=== PATIENT | female | born 1950 | race Caucasian/White ===

== ENCOUNTER 2020-06-27 10:13 | Outpatient (NON) | payer MEDICARE, BC, SELFPAY ==
[2020-06-28 14:11] LABS: SARS-CoV-2 RNA PCR Negative
== END 2020-06-27 10:14 ==
PROVIDERS: PCP Family Medicine; Visit Provider Physician Assistant
DX: Z20.828 Contact with and (suspected) exposure to other viral communicable diseases (principal); R50.9 Fever, unspecified
CPT/HCPCS: 87635; C9803; U0003

== ENCOUNTER → 2020-08-20 10:01 | Outpatient (CLI) | payer MEDICARE, BC, SELFPAY ==
--- NOTE | ~2020-08-20 | MM_ITS ---
EXAMINATION: MM screening irma BI w krishan HISTORY: Screening mammogram TECHNIQUE: Craniocaudal and mediolateral oblique 3-D tomosynthesis images were obtained and synthetic 2-D images were generated. CAD analysis was submitted and interpreted. COMPARISON: No prior mammogram is available for comparison at this institution. BREAST PARENCHYMAL COMPOSITION: The breasts are heterogeneously dense, which may obscure small masses . FINDINGS: There is a biopsy marker on the left; history of prior benign left breast biopsy on 06/19/20 18. There is no evidence of suspicious mass, calcification, or architectural distortion to suggest ma lignancy in either breast. There has been no suspicious interval change. IMPRESSION: 1. No mammographic evidence of malignancy. 2. Recommend routine screening mammography in one year. BI-RADS Category 1: Negative Reviewed, dictated and finalized at location A.
--- NOTE | ~2020-08-20 | DEXA_ITS ---
Bone Density Report Name: oJry Angeles Age: 70 Sex: Female Ethnicity: White Date of : 1950 Indication: osteopenia; history of glucocorticoids; hysterectomy; rheumatoid arthritis; postmenopausal Referring Provider: ABHINAV DOMINGUEZ Study: Bone densitometry was performed. Exam Date: August 20, 2020 Accession number: [id number] There is hypertrophic degenerative change of the lumbar spine, which results in higher than expected spine bone mineral density measurements. These spine BMD and T score and Z score measurements are not reflective of the patient's true general bone mineral density. Bone Density: Region BMD T-score Z-score Classification AP Spine (L1-L4) 1.473 3.9 6.0 Normal Femoral Neck (Left) 0.620 -2.1 -0.3 Osteopenia Total Hip (Left) 0.812 -1.1 0.5 Osteopenia Femoral Neck (Right) 0.626 -2.0 -0.2 Osteopenia Total Hip (Right) 0.811 -1.1 0.4 Osteopenia Total Hip Mean 0.812 -1.1 0.5 Osteopenia World Health Organization criteria for BMD impression classify patients as: Normal (T-score at or above -1.0), Osteopenia (T-score between -1.0 and -2.5), or Osteoporosis (T-score at or below -2.5). 10-year Fracture Risk(1): Major Osteoporotic Fracture 21% Hip Fracture 5.6% Reported Risk Factors: [place] (), Neck BMD=0.620, BMI=19.5, glucocorticoids, rheumatoid arthritis (1) FRAX(R) Version 3.08. Fracture probability calculated for an untreated patient. Fracture probability may be lower if the patient has received treatment. Previous Exams: Region Exam Age BMD T-score BMD Change BMD Change Date g/cm2 vs Baseline vs Previous AP Spine(L1-L4) 08/20/2020 70 1.473 3.9 0.134 0.087* 07/06/2017 67 1.387 3.1 0.048 0.089* 10/23/2013 63 1.297 2.3 -0.042 -0.032* 08/31/2011 61 1.329 2.6 -0.009 0.017 07/15/2009 59 1.312 2.4 -0.027 0.028* 02/14/2007 56 1.284 2.2 -0.054 -0.054 01/18/2004 53 1.339 2.7 Total Hip(Left) 08/20/2020 70 0.812 -1.1 -0.121 -0.012 07/06/2017 67 0.824 -1.0 -0.109 -0.008 10/23/2013 63 0.833 -0.9 -0.100 -0.043* 08/31/2011 61 0.876 -0.5 -0.057 -0.006 07/15/2009 59 0.882 -0.5 -0.051 -0.009 02/14/2007 56 0.891 -0.4 -0.042 -0.042 01/18/2004 53 0.933 -0.1 Total Hip(Right) 08/20/2020 70 0.811 -1.1 -0.119 0.003 07/06/2017 67 0.808 -1.1 -0.122 -0.008 10/23/2013 63 0.817 -1.0 -0.113 -0.037*
== END ==
PROVIDERS: Visit Provider Obstetrics & Gynecology
DX: Z12.31 Encounter for screening mammogram for malignant neoplasm of breast (principal); Z78.0 Asymptomatic menopausal state; M85.89 Other specified disorders of bone density and structure, multiple sites
CPT/HCPCS: 77063; 77067; 77080

== ENCOUNTER 2020-08-27 13:30 | Outpatient (RCR) | payer MEDICARE, BC, SELFPAY ==
--- NOTE | 2020-07-29 11:44 | PTOPEVAL ---
Thank you for referring Jory A Bone to [facility] [place].? The patient is scheduled to be seen for therapy? 2 x/week for 4 weeks. Please review, sign, date and return this plan of care SADIA. I agree with and certify that the following plan of care is medically necessary. Referring Physician Date Admitting Provider: Attending Provider: Nikolai Jade, Referring Provider: *PT Outpatient Evaluation Start: 07/29/20 10:22 Freq: Status: Active Protocol: Document 07/29/20 10:26 TLM (Rec: 07/29/20 11:09 [facility] [id number]) Therapy Assessment Status Assessment Status Assessment Status Evaluation Outpatient Past Medical History Past Medical History Source of Past Medical History Patient Neurological History Hx Neurological Disorders No Significant History Cardiovascular History Hx Cardiac Disorders No Significant History Respiratory History Hx Respiratory Disorders No Significant History Gastrointestinal History Hx Gastrointestinal Disorders No Significant History Genitourinary History Hx Genitourinary Disorders No Significant History Musculoskeletal History Hx Back Pain Yes Hx Rheumatoid Arthritis Yes Hx Scoliosis Yes Hematological History Hx Hematological Disorders No Significant History Endocrine History Hx Endocrine Disorders No Significant History HEENT History Hx HEENT Disorders No Significant History Integumentary History Hx Skin Disorders No Significant History Reproductive History Hx Reproductive Disorders No Significant History Psychosocial History Hx Psychiatric Disorders No Significant History Evaluation Information Problem Diagnosis Trochanteric pain syndrome (L) Subjective Information Insideous onset of L hip pain Query Text:As Reported By Patient/ 5 years ago. Describes pain as Family deep ache. Has been to MD multiple times over the years and has received corisone injections 3 -5x/yr for 5 years. States pain is initially better after cortisone injection however slowly gets worse until next injection. Relief from injection has been more intermittent lately. Reports next injection is on 07/31 by elizabeth BOSCH who will use MRI guidance. Reports pain at her L knee that is so sharp that feels her patella is popping out of
--- NOTE | 2020-08-27 15:55 | PTOPEVAL ---
Thank you for referring Jory A Bone to [facility].? Pt has received 9 therapy visits to address hip pain. She demonstrates limited progress with goals and strength. She reports improved pain with function with therapy. She has requested to continue with her HEP and fitness program instead of attending therapy. Please review, sign, date and return this plan of care SADIA. I agree with and certify that the following plan of care is medically necessary. Referring Physician Date Attending Provider: Nikolai Jade, Referring Provider: *PT Outpatient Evaluation Start: 07/29/20 10:22 Freq: Status: Active Protocol: Document 08/27/20 13:31 CAP (Rec: 08/27/20 14:29 [facility] [email or web address]) Therapy Assessment Status Assessment Status Assessment Status Re-evaluation Evaluation Information Problem Diagnosis Trochanteric pain syndrome (L) Onset 5 yrs Cause unknown Additional Evaluation Detail Has been to MD multiple times over the years and has received cortisone injections 3 -5x/yr for 5 years. Reports next injection is on 07/31 by new MD who will use MRI guidance. Subjective Information Reports pain was improved, but Query Text:As Reported By Patient/ she woke with pain this Family morning. Describes pain as pinching with pain of 0-2/10. Reports pain at her L knee/ patella is popping out of place. when she puts all her weight on the left LE with mobility task. She has fallen due to knee pain. She is unable to indicate a task or activity that increases or decreases her pain. Has used ice/heat in the past for relief. Denies increased pain with sitting or standing. Pain Assessment Timing of Pain Assessment Timing of Pain Assessment Re-assessment Pain Scale Pain Scale Used Numeric (1 - 10) Self Report Pain Assessment Left Hip(s) Reported Pain Level 1 Pain Description Pinching Pain Frequency Chronic,Intermittent Lowest Pain Intensity 0 Greatest Pain Intensity 2 Pain Aggravating Factors None Pain Score Pain Score 1: Self Report Interventions Used Interventions Used By Clinicians Exercise Lower Extremity Mus
== END 2020-08-28 14:29 | disposition home or self-care (01) ==
LOC: ANHPT 13:30
PROVIDERS: PCP Family Medicine; Visit Provider Internal Medicine Rheumatology
DX: M25.559 Pain in unspecified hip (principal)
CPT/HCPCS: 97014; 97035; 97110; 97112; 97140; 97161; 97530; G0283

== ENCOUNTER → 2021-01-03 08:55 | Outpatient (CLI) | payer MEDICARE, BC, SELFPAY ==
--- NOTE | ~2021-01-03 | US_ITS ---
EXAMINATION: US right upper quadrant DATE: 01/03/2021 09:22 INDICATION: Abnormal liver function tests. TECHNIQUE: Multiple grayscale and Doppler ultrasound images of the abdomen were obtained. COMPARISON: None FINDINGS: Abdominal aorta demonstrates atherosclerosis. No aneurysm. Inferior vena cava is normal. Th e visualized portions of the head, body, and tail of the pancreas are normal. The liver is normal wit hout focal lesion. No liver surface nodularity. There is normal flow in main portal vein. The gallbla dder is normal in size. No gallstones or gallbladder wall thickening. There is no sonographic Kay sign. The common duct is normal and measures 2 mm. Right kidney is normal. IMPRESSION: 1. No etiology for abnormal liver function tests. Reviewed, dictated and finalized at location A. SETTER
== END ==
PROVIDERS: PCP Family Medicine; Visit Provider Physician Assistant
DX: R74.8 Abnormal levels of other serum enzymes (principal)
CPT/HCPCS: 76705

== ENCOUNTER 2022-07-10 16:07 | Emergency (ER) | payer MEDICARE, BC, SELFPAY ==
[2022-07-10 16:16] VITALS: BP 122/60; PULSE 79; RESP 18; TEMP 36.5; O2SAT 99
--- NOTE | 2022-07-10 16:33 | ED.GENADULT ---
HPI - General Adult General Chief complaint: Extremity Injury, Lower Stated complaint: Lt Leg Pain due to Fall History of Present Illness HPI narrative: 72 y/o female. PMHx non-contributory. Presents to local [facility] care clinic today w/acute complaints of a wound located to her lower left leg. She tells me that she had suffered a mechanical fall 1 week ago, resulting in a skin tear to her left lower leg. Client describes washing her home windows, and fell from a small stool. No prodromal deficits. She did seek out medical attention at the local Hospital following her fall, and states that all her scans and xrays were non-acute. However, her lower leg wound is now more erythematous, tender, and with yellow discharge. She has had minimal response to home topical Neosporin therapies. She denies any additional falls or injury. No gross leg swelling, pain, chest pain, or difficulty breathing. Non-diabetic. Her Tetanus was updated last week in the ER following her fall is what she reports. No additional acute c/o upon PE. Related Data Home Medications Medication Instructions Recorded Confirmed calcium carbonate 500 mg-vitamin 1 tablet PO DAILY 09/18/19 07/10/22 D3 3.125 mcg (125 unit) tablet folic acid 0.8 mg capsule 0.8 mg PO DAILY 09/18/19 07/10/22 hydroxychloroquine 200 mg tablet 200 mg PO BID 09/18/19 07/10/22 (Plaquenil) estradiol 10 mcg vaginal tablet 10 mcg vaginal 2XW 09/19/19 07/10/22 (Vagifem) prednisone 5 mg tablet 5 mg PO DAILY 02/13/20 07/10/22 denosumab 60 mg/mL subcutaneous 60 mg subcut [id number] 11/27/21 07/10/22 syringe (Prolia) metoprolol tartrate 25 mg tablet 25 mg PO BID 11/27/21 07/10/22 multivitamin 1 tablet PO DAILY 11/27/21 07/10/22 abatacept 125 mg/mL subcutaneous 125 mg subcut WEEKLY 12/10/21 07/10/22 syringe (Orencia) abatacept 87.5 mg/0.7 mL mg subcut DIRECTED 07/10/22 subcutaneous syringe (Orencia) Allergies Allergy/AdvReac Type Severity Reaction Status Date / Time Quinolones Allergy Mild SOB, CHEST Verified 07/10/22 16:27 PRESSURE trimethoprim Allergy Mild SOB, CHEST Verified 07/10/22 16:27 PRESSURE erythromycin base Allergy Unknown Unknown Verified 07/10/22 16:27 latex Allergy Unknown Rash Verified 07/10/22 16:27 nickel Allergy Unknown Rash Verified 07/10/22 16:27 Penicillins Allergy Unknown Rash Verified 07/10/22 16:27 Sulfa (Sulfonamide Allergy Unknown Unknown Verified 07/10/22 16:27 Antibiotics) Review of Systems Review of Systems: CONSTITUTIONAL: Denies fever, chills, sweats. EYES: Denies visual changes, redness, discharge. ENT: Denies rhinorrhea, congestion, sore throat, otalgia. CARDIOVASCULAR: Denies chest pain, palpitations, edema. RESPIRATORY: Denies dyspnea, wheezing, cough GASTROINTESTINAL: Denies abdominal pain, nausea, vomiting, diarrhea. GENITOURINARY: Denies dysuria, hematuria, abnormal discharge SKIN: Left lower leg wound/infection. MUSCULOSKELETAL: Denies acute back pain, joint pain, or myalgia. NEUROLOGIC: Denies numbness, or focal weakness. PSYCHIATRIC: Denies anxiety or depression. [facility] Past Medical History Medical History Memory loss Surgical History Surgical History Status post hysterectomy with oophorectomy Family History Family History Father Diabetes mellitus Family history of Alzheimer's disease Sibling Family history of migraine headaches Family history of malignant neoplasm of brain Mother Family history of Alzheimer's disease Social History Social History Smoking packs per day: 1 Smoking cigarettes per day: 20.0 Years smoked: 30 Smoking pack-years: 30.00 Smoking status: Current some day smoker Tobacco type: cigarettes Second hand tobacco smoke exposure: Ye
== END 2022-07-10 16:37 | disposition home or self-care (01) ==
PROVIDERS: Emergency Provider Nurse Practitioner Adult Health; PCP Internal Medicine
DX: L03.116 Cellulitis of left lower limb (principal); Z87.891 Personal history of nicotine dependence
CPT/HCPCS: 99213; G0463

== ENCOUNTER → 2022-11-06 14:39 | Outpatient (CLI) | payer MEDICARE, BC, SELFPAY ==
--- NOTE | ~2022-11-06 | MM_ITS ---
EXAMINATION: MM screening irma BI w krishan HISTORY: Screening mammogram TECHNIQUE: Craniocaudal and mediolateral oblique 3-D tomosynthesis images were obtained and synthetic 2-D images were generated. CAD analysis was submitted and interpreted. COMPARISON: 03/25/2020 bilateral screening mammogram BREAST PARENCHYMAL COMPOSITION: The breasts are heterogeneously dense, which may obscure small masses . FINDINGS: Biopsy marker on the left. History of prior benign left breast biopsy in 2018. There is no evidence of suspicious mass, calcification, or architectural distortion to suggest malignancy in eith er breast. There has been no suspicious interval change. IMPRESSION: 1. No mammographic evidence of malignancy. 2. Recommend routine screening mammography in one year. BI-RADS Category 1: Negative Reviewed, dictated and finalized at location B. [facility] [employer]
--- NOTE | ~2022-11-06 | DEXA_ITS ---
Bone Density Report Name: ALEJANDRA GALVIN Age: 72 Sex: Female Ethnicity: White Date of : 1950 Indication: osteopenia; monitoring treatment; history of glucocorticoids; hysterectomy; rheumatoid arthritis; postmenopausal Referring Provider: AIXA JACQUES Study: Bone densitometry was performed. Exam Date: November 06, 2022 Accession number: [id number] There is hypertrophic degenerative change of the lumbar spine, which results in higher than expected spine bone mineral density measurements. These spine BMD and T score and Z score measurements are not reflective of the patient's true general bone mineral density. Bone Density: Region BMD T-score Z-score Classification AP Spine (L1-L4) 1.563 4.7 6.9 Normal Femoral Neck (Left) 0.627 -2.0 -0.1 Osteopenia Total Hip (Left) 0.826 -1.0 0.7 Normal Femoral Neck (Right) 0.660 -1.7 0.2 Osteopenia Total Hip (Right) 0.819 -1.0 0.6 Normal Total Hip Mean 0.823 -1.0 0.7 Normal World Health Organization criteria for BMD impression classify patients as: Normal (T-score at or above -1.0), Osteopenia (T-score between -1.0 and -2.5), or Osteoporosis (T-score at or below -2.5). 10-year Fracture Risk: FRAX not reported because: Treated for osteoporosis Previous Exams: Region Exam Age BMD T-score BMD Change BMD Change Date g/cm2 vs Baseline vs Previous AP Spine(L1-L4) 11/06/2022 72 1.563 4.7 0.225 0.090* 08/20/2020 70 1.473 3.9 0.134 0.087* 07/06/2017 67 1.387 3.1 0.048 0.089* 10/23/2013 63 1.297 2.3 -0.042 -0.032* 08/31/2011 61 1.329 2.6 -0.009 0.017 07/15/2009 59 1.312 2.4 -0.027 0.028* 02/14/2007 56 1.284 2.2 -0.054 -0.054 01/18/2004 53 1.339 2.7 Total Hip(Left) 11/06/2022 72 0.826 -1.0 -0.108 0.013 08/20/2020 70 0.812 -1.1 -0.121 -0.012 07/06/2017 67 0.824 -1.0 -0.109 -0.008 10/23/2013 63 0.833 -0.9 -0.100 -0.043* 08/31/2011 61 0.876 -0.5 -0.057 -0.006 07/15/2009 59 0.882 -0.5 -0.051 -0.009 02/14/2007 56 0.891 -0.4 -0.042 -0.042 01/18/2004 53 0.933 -0.1 Total Hip(Right) 11/06/2022 72 0.819 -1.0 -0.111 0.007 08/20/2020 70 0.811 -1.1 -0.119 0.003 07/06/2017 67 0.808 -1.1 -0.122 -0.008 10/23/2013 63 0.817 -1.0 -0.113 -0.037* 08/31/2011 61 0.854 -0.7 -0.076 -0.031* 07/15/2009 59 0.885
== END ==
PROVIDERS: PCP Internal Medicine
DX: Z12.31 Encounter for screening mammogram for malignant neoplasm of breast (principal); Z78.0 Asymptomatic menopausal state; M85.89 Other specified disorders of bone density and structure, multiple sites
CPT/HCPCS: 77063; 77067; 77080

== ENCOUNTER 2024-05-02 14:40 | Outpatient (CLI) | payer MEDICARE, BC, SELFPAY ==
--- NOTE | ~2024-05-02 | MM_ITS ---
EXAMINATION: MM screening irma BI w krishan HISTORY: Screening mammogram TECHNIQUE: Craniocaudal and mediolateral oblique 3-D tomosynthesis images were obtained and synthetic 2-D images were generated. CAD analysis was submitted and interpreted. COMPARISON: 11/06/2022, 08/20/2020, 06/09/2018 BREAST PARENCHYMAL COMPOSITION:Dense: The breasts are heterogeneously dense, which may obscure small masses. FINDINGS: No suspicious mass, calcification, or architectural distortion are identified in either sandy ast to suggest malignancy. There has been no suspicious interval change. IMPRESSION: No mammographic evidence of malignancy. Recommend routine screening mammography in one year. BI-RADS Category 1: Negative Reviewed, dictated and finalized at location .
== END 2024-05-02 14:41 ==
PROVIDERS: PCP Internal Medicine; Visit Provider Internal Medicine
DX: Z12.31 Encounter for screening mammogram for malignant neoplasm of breast (principal)
CPT/HCPCS: 77063; 77067

== ENCOUNTER 2025-03-10 09:31 | Emergency (ER) | payer MEDICARE, BC, SELFPAY ==
[2025-03-10 09:46] VITALS: BP 95/54; PULSE 74; RESP 16; TEMP 36.1; O2SAT 99
--- NOTE | 2025-03-10 10:07 | ED.FEMALEGU ---
HPI - Female Genitourinary General Chief complaint: Urogenital-Female Stated complaint: UTI Time Seen by Provider: 03/10/25 10:09 Source: patient, RN notes reviewed and old records reviewed Mode of arrival: ambulatory Limitations: no limitations History of Present Illness HPI Narrative: 74-year-old female presents to the [facility] with the feeling of unable to empty her bladder and bladder and urinary irritation. Denies any pain. Denies fevers. Denies abdominal pain, nausea or vomiting. Patient had seen primary care provider on the 01 March, was prescribed Macrobid due to multiple allergies. States the symptoms have not changed or improved. Related Data Home Medications ?Medication ?Instructions ?Recorded ?Confirmed ?Last Taken ?Type calcium 500 mg (as 1 tablet PO DAILY 09/18/19 07/10/22 Unknown History carbonate)-vitamin D3 3.125 mcg (125 unit) tablet folic acid 0.8 mg capsule 0.8 mg PO DAILY 09/18/19 07/10/22 Unknown History hydroxychloroquine 200 mg tablet 200 mg PO BID 09/18/19 07/10/22 Unknown History (Plaquenil) denosumab 60 mg/mL subcutaneous 60 mg subcut [id number] 11/27/21 07/10/22 Unknown History syringe (Prolia) metoprolol tartrate 25 mg tablet 25 mg PO BID 11/27/21 07/10/22 Unknown History multivitamin 1 tablet PO DAILY 11/27/21 07/10/22 Unknown History abatacept 125 mg/mL subcutaneous 125 mg subcut WEEKLY 12/10/21 07/10/22 Unknown History syringe (Orencia) abatacept 87.5 mg/0.7 mL mg subcut DIRECTED 07/10/22 Unknown History subcutaneous syringe (Orencia) Allergies Allergy/AdvReac Type Severity Reaction Status Date / Time Quinolones Allergy Mild SOB, CHEST Verified 10/29/22 11:20 PRESSURE trimethoprim Allergy Mild SOB, CHEST Verified 10/29/22 11:20 PRESSURE erythromycin base Allergy Unknown Unknown Verified 10/29/22 11:20 latex Allergy Unknown Rash Verified 10/29/22 11:20 nickel Allergy Unknown Rash Verified 10/29/22 11:20 Penicillins Allergy Unknown Rash Verified 10/29/22 11:20 Sulfa (Sulfonamide Allergy Unknown Unknown Verified 10/29/22 11:20 Antibiotics) Review of Systems Review of Systems: All systems reviewed & are unremarkable except as noted in HPI and below Constitutional: Constitutional: Reports no additional constitutional complaints ENT: Reports system reviewed and no additional complaints, except as documented Cardiovascular: Cardiovascular: Reports no additional cardiovascular complaints, Denies chest pain and Denies dyspnea Respiratory: Respiratory: Reports no additional respiratory complaints, Denies chest congestion, Denies cough and Denies dyspnea Genitourinary: Genitourinary: Reports as per HPI Musculoskeletal: Musculoskeletal: Reports no additional musculoskeletal complaints Integumentary/Breasts: Skin/Breast: Reports system reviewed and no additional complaints, except as docu PMFSH Past Medical History Medical History Memory loss Surgical History Surgical History Status post hysterectomy with oophorectomy Family History Family History Father Diabetes mellitus Family history of Alzheimer's disease Sibling Family history of migraine headaches Family history of malignant neoplasm of brain Mother Family history of Alzheimer's disease Social History Social History Smoking packs per day: 1 Smoking cigarettes per day: 20.0 Years smoked: 30 Smoking pack-years: 30.00 Smoking status: Current some day smoker Tobacco type: cigarettes Second hand tobacco smoke exposure: Yes Smoking end date: 11/01/07 Alcohol intake: current Drinks per week: 2 Substance use: never Substance use type: does not use Lack of Transportation: No Lack of Food: Never True Current Housing: I Have Housing Concerned About Future Housing: No Difficulty Paying Gas/Electric Bills: No Difficulty Paying for Meds: No Currently Unemployed: No Education: Associate Degree Difficulty w/ Childcare or Family Care: No Living arrangements: with family Occupation/Education: retired Gender identity (if verbalized by the patient): Female Sexual Orientation (if Verbalized by the Patient): Straight or Heterosexual Comments At the time of my signature, I reviewed and agree with the nursing past medical, surgical, social, and family history. There is no relevant family history pertinent to the patient complaint. Exam Const: General: cooperative, healthy appearing, comfortable, no acute distress, well developed, alert and well nourished Nutritional Appearance: well nourished Orientation/consciousness: patient oriented x3 Limitations: no limitations HENMT: Head: normal to inspection Eyes: General: appearance normal, both eyes and all related structures Alignment and Position: alignment normal Neck: Neck: normal visual inspection, full ROM, no lymphadenopathy and no meningeal signs Chest: Chest palpation & inspection: normal inspection of the chest Resp: Effort & Inspection: normal respiratory effort and able to speak in complete sentences Cardio: Rate: regular rate GI: GI Palp: No abdominal tenderness : General: Yes no CVA tenderness Skin: General skin exam: normal color and no rashes or lesions noted Neuro: General: patient oriented x3, gait normal, moves all extremities and no meningeal signs Cognition (Neuro): normal cognition Speech: normal speech Gait exam (Neuro): Normal gait present Extrem: General: normal to inspection, full ROM, capillary refill normal and normal gait Psych: Appearance: grossly normal and well kempt Mental Status: mental status grossly normal Speech and movement: Normal speech and movement present and Clear speech present Affect: normal affect Attitude: cooperative Course Course Level of Care: Express Care Visit Vital Signs Vital signs: Vital Signs Temperature 97.0 F L 03/10/25 09:46 Pulse Rate 74 03/10/25 09:46 Respiratory Rate 16 03/10/25 09:46 Blood Pressure 95/54 L 03/10/25 09:46 Pulse Oximetry 99 03/10/25 09:46 Oxygen Delivery Room Air 03/10/25 09:46 Temperature 97.0 F L 03/10/25 09:46 Pulse Rate 74 03/10/25 09:46 Respiratory Rate 16 03/10/25 09:46 Blood Pressure 95/54 L 03/10/25 09:46 Pulse Oximetry 99 03/10/25 09:46 Oxygen Delivery Room Air 03/10/25 09:46 Reviewed MDM - Female Genitourinary MDM Narrative Medical decision making narrative: Patient sitting comfortably in exam room. Patient is nontoxic, vitals stable. Patient in no acute distress. Patient presents with concerns for UTI. Urine dip is clean, will culture. Patient appropriate for outpatient treatment with close follow-up Discharge instructions reviewed with patient, as well as provided in writing per nursing staff. The instructions also include specific and strict return/GO TO THE ER as well as f/u information. All questions have been answered, and the patient deny any further questions with discharge and discharge plan. Some parts of this dictation were generated by voice recognition software and may contain typographical and/or grammatical inaccuracies. Differential Diagnosis Differential diagnosis: Likely urinary tract infection, cystitis and other (Dysuria) Lab Data Labs: Lab Results 03/10/25 Range/Units 09:50 POC Urine Color Yellow POC Urine Clarity Clear POC Urine pH 6.0 POC Ur Specif [place] 1.010 POC Urine Protein Negative (Negative) POC Ur Glucose (UA) Negative (Negative) POC Urine Ketones Negative (Negative) POC Urine Blood Negative (Negative) POC Urine Nitrite Negative (Negative) POC Urine Bilirubin Negative (Negative) POC Urine Urobilinogen 0.2 POC U Leukocyte Esteras Negative (Negative) Reviewed Critical Care Time Critical Care Time Critical Care Time: No Discharge Plan Discharge Clinical Impression: Dysuria Patient Disposition: Home Condition: Stable Instructions: Antibiotic Form, Dysuria (ED) Additional Instructions: Today your urine did not show signs of a UTI. We will send for culture. Please call your doctor on Wednesday for a follow-up. For new or worsening symptoms please go directly to the nearest emergency room Patient Language: Hong [place]er Prescriptions: No Action Orencia 87.5 mg/0.7 mL Syringe SUBCUT DIRECTED hydroxychloroquine [Plaquenil] 200 mg tablet 200 mg PO BID calcium carbonate-vitamin D3 500 mg(1,250mg) -125 unit tablet 1 tablet PO DAILY folic acid 0.8 mg capsule 0.8 mg PO DAILY Orencia 125 mg/mL syringe 125 mg subcut WEEKLY aspirin 81 mg tablet,chewable 81 mg PO DAILY Qty: 30 4RF riboflavin (vitamin B2) 400 mg tablet 400 mg PO DAILY Qty: 30 4RF multivitamin Tablet 1 tablet PO DAILY Prolia 60 mg/mL syringe 60 mg subcut [id number] metoprolol tartrate 25 mg tablet 25 mg PO BID gabapentin 300 mg capsule 300 mg PO TID Qty: 90 11RF Follow-up/Referrals: Kell,Kash Vale MD [Primary Care Provider] - 3 Days ([facility] follow-up, continued urinary symptoms) Time of Disposition: 10:17
[2025-03-10 10:23] LABS: EDUAAPPEAR Clear; EDUABILI Negative (Negative); EDUABLOOD Negative (Negative); EDUACOLOR1 Yellow; EDUAGLUCOSE Negative (Negative); EDUAKETONE Negative (Negative); EDUALEUKO Negative (Negative); EDUANITRATE Negative (Negative); EDUAPROTEIN Negative (Negative); EDUAUROBILI 0.2
== END 2025-03-10 10:25 | disposition home or self-care (01) ==
PROVIDERS: Emergency Provider Nurse Practitioner; PCP Internal Medicine
DX: R30.0 Dysuria (principal); F17.210 Nicotine dependence, cigarettes, uncomplicated
CPT/HCPCS: 81003; 87086; 99213; G0463

== ENCOUNTER 2025-03-16 22:57 | Inpatient (IN) | payer MEDICARE, BC, SELFPAY ==
--- NOTE | ~2025-03-16 | CT_ITS ---
CT brain wo con Ordering provider: Chester Uribe History: 74 years Female with . stroke symptoms since 2199 . Comparison: None. Technique: CT of the head without contrast. Radiation reduction technique utilized.The dose-length product was 681 mGy-cm. FINDINGS: BRAIN PARENCHYMA AND CSF SPACES: No midline shift, mass effect or hemorrhage. The brain parenchyma a nd CSF spaces are otherwise normal. VISUALIZED PARANASAL SINUSES: Well aerated. MASTOIDS: Well aerated. BONES: The bones appear intact. SOFT TISSUES: Visualized nasopharynx is normal. Superficial soft tissues are normal. IMPRESSION: No acute intracranial findings. Reviewed, dictated and finalized at location A.
--- NOTE | ~2025-03-16 | MR_ITS ---
EXAMINATION: MR brain/brain stem wo/w con DATE: 03/17/2025 12:31 INDICATION: Transient ischemic episode. Left upper and lower limb paresthesias. TECHNIQUE: Magnetic resonance imaging (MRI) of the brain and brainstem was performed without and with 10 mL ProHance intravenous contrast. Sequences included sagittal and axial T1-weighted SE, axial dif fusion-weighted FS SE, axial 3D SWAN, axial T2-weighted FLAIR, and axial T2-weighted FSE. Postcontras t axial and coronal T1-weighted SE was obtained. Apparent diffusion coefficient (ADC) maps were creat ed. COMPARISON: None. FINDINGS: There are no areas of restricted diffusion to suggest acute infarction. No intracranial hemorrhage or abnormal intracranial mass lesion. There are a few scattered areas of nonspecific increased T2-weigh ann signal intensity in the cerebral white matter, predominantly involving the deep and periventricul ar white matter which is within normal limits for age and likely sequela of chronic small vessel isch emic disease.. There are no intraparenchymal signal abnormalities seen on the other pulse sequences. The ventricles are symmetric and normal in size. There are no abnormal extra-axial fluid collections. Flow voids are seen in the cerebral arteries on the T2-weighted sequences consistent with their expe cted patency. Mild mucosal thickening the bilateral ethmoid sinuses. Visualized orbits and soft tissu es are unremarkable. There are no areas of abnormal enhancement on the post contrast images. IMPRESSION: 1. Normal aging brain. No acute intracranial process or abnormally enhancing brain lesions. Reviewed, dictated and finalized at location A. IMPRESSION: 1. Normal aging brain. No acute intracranial process or abnormally enhancing br ain lesions.
--- NOTE | ~2025-03-16 | CT_ITS ---
CTA brain carotid Ordering provider: Carla Valera PA-C History: . cva . Comparison: None. Technique: CT angiogram head and neck was performed following timed intravenous injection of contrast . Thin slice axial images and reformatted coronal images were obtained. Three dimensional reformatted images of the brain were also obtained using a [employer] workstation. Radiation reduction technique ut ilized.The dose-length product was 1008.17 100 mL Omnipaque 350 was given IV. mGy-cm. FINDINGS: HEAD: --ANTERIOR AND MIDDLE CEREBRAL ARTERIES AND BRANCHES: Normal caliber and contour. --INTERNAL CAROTID ARTERIES: no significant stenosis. No occlusion. --BASILAR ARTERY AND BRANCHES: Normal caliber and contour. No atheromatous disease. --POSTERIOR CEREBRAL ARTERIES: Normal caliber and contour --POSTERIOR COMMUNICATING ARTERIES: Not visualized which is probably related to congenital absence or small size. --ANEURYSM: None visualized. --BRAIN: Please refer to report of CT head performed the same day. --BONES AND SUPERFICIAL SOFT TISSUES: Please refer to report of CT head performed the same day. --PARANASAL SINUSES AND MASTOIDS: Please refer to report of CT head done the same day. NECK: --RIGHT CERVICAL CAROTID SYSTEM: Normal caliber and contour. Percent stenosis per NASCET criteria is 0%. No carotid dissection. Otherwise, no significant atheromatous disease or stenosis of the cervica l carotid system. --LEFT CERVICAL CAROTID SYSTEM: Mild atheromatous disease of the carotid bulb and proximal internal c arotid artery without significant stenosis. Percent stenosis per NASCET criteria is 0%. No carotid d issection. Otherwise, no significant atheromatous disease or stenosis of the cervical carotid system. --VERTEBRAL ARTERIES: Normal caliber and contour. --VISUALIZED AORTIC ARCH AND BRANCHING VESSELS: no significant stenosis. --SOFT TISSUES: Normal. --CERVICAL SPINE: Age appropriate degenerative changes. IMPRESSION: 1. Normal CTA head. 2. 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 Otherwise, normal CTA of the neck. Percen t stenosis per NASCET criteria is 0%. Reviewed, dictated and finalized at location A. IMPRESSION: 1. Normal CTA head. 2. 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 Otherwise, normal C TA of the neck. Percent stenosis per NASCET criteria is 0%.
--- OUTSIDE RECORDS SUMMARY | 2025-03-16 23:02 | XMS_ITS | Encounter Summary ---
Author Organization [facility] Address [address] [place] [address] Phone Care Team Providers Care Tdp Displays Analyst Name Role Phone Kash Damon MD Primary Care Provider [phone] Alfonso England MD Unavailable [phone] Encounter Details Date Type Department Care Team (Late st Contact Info) Description 03/15/2025 Results Follow-Up [facility] [address] [place] [id number] Clayton Zelaya PA [address] [place] [address] Social History Tobacco Use Types Packs/Day Years Used Date Smoking Tobacco: Former Smokeless Tobacco: Never Alcohol Use Standard Drinks/Week Comments Yes 0 (1 standard drink = 0.6 oz pur e alcohol) AUDIT-C Answer Date Recorded Q1: How often do you have a drink containing alc ohol? Never 09/01/2021 Average Number of Drinks Not on file 021 Q3: How often do you have si x or more drinks on one occasion? Never 09/01/2021 Comments Unknown Sex and Gender Information Value Date Recorded Sex Assigned at Not on file Legal Sex Female 8:12 PM [employer]IOR [employer] Gender Identity Not on file Sexual Orientation Not on file documented as of this encounter Plan of Treatment Not on file documented as of this encounter Visit Diagnoses Not on filedocumented in this encounter Care Teams Tdp Displays Analyst Relationship Specialty Start Date End Date Kash Damon MD [address] [place] [address] PCP - General Internal Medicine 07/10/21 Alfonso England MD [address] [facility] [address] [place] [address] Consulting Physician Rheumatology 11/11/23 documented as of this encounter
--- OUTSIDE RECORDS SUMMARY | 2025-03-16 23:02 | XMS_ITS | Referral Summary ---
Author Organization [facility] [address] [facility] [address] Address [address] [place] [address] Care Team Providers Care Sailing Instructor Name Role Phone Kash Damon MD Primary Care Provider Alfonso England MD Unavailable [phone] Encounters Date Type Department Care Team Description 03/15/2025 Results Follow-Up [facility] [address] [place] [id number] Clayton Zelaya PA 03/13/[address] [phone] Clayton Zelaya PA 03/13/2025 1:00 PM CDT Office Visit [address] [phone] Clayton Zelaya PA Seropositive rheumatoid arthritis (HCC) (Primary Dx); Osteopenia, unspecified location; Sjogren's syndrome, with unspecified organ involvement; Acute cystitis without hematuria; Encounter for long-term (current) use of medications; Asymptomatic menopausal state from Last 3 Months Allergies Active Allergy Reactions Criticality Noted Date Comments Erythromycin Levofloxacin Penicillins Sulfa (Sulfonamide Antibiotics) Medications multivitamin capsule Take 1 capsule by mouth daily Active gabapentin (NEURONTIN) 300 mg capsule 1 capsule (300 mg total) 3 (three) times a day 0 Active denosumab (PROLIA) 60 mg/mL syringe Inject under the skin every 6 (six) months Active abatacept (ORENCIA) 250 mg injection Active dicyclomine (BENTYL) 20 mg tablet Take 1 tablet (20 mg total) by mouth every 6 (six) hours Active aspirin 81 mg enteric coated tablet Take 1 tablet (81 mg total) by mouth daily 30 tablet 11 5 11/15/19 26 Active metoprolol tartrate (LOPRESSOR) 25 mg immediate release tabletIndicati ons:History of TIA (transient ischemic attack) Take 0.5 tablets (12.5 mg total) by mouth 2 (two) times a day 180 tablet 6 5 Active hydroxychloroq uine (PLAQUENIL) 200 mg tablet Take 1.5 tablets (300 mg total) by mouth daily 135 tablet 5 03/13/20 25 Discontinued Active Problems Problem Noted Date Diagnosed Date Acute cystitis without hematuria 03/13/2025 Assessment & Plan (03/13/2025 1:28 PM CDT): Had recent UTI treated with antibiotics. She does note straining with urination, although denies dysuria and/or increased frequency. Will check clean-catch UA. Jaw pain 11/14/2024 Assessment & Plan (11/14/2024 3:00 PM ONCOLOGY NURSE): Has had right upper jaw pain stemming from tooth extraction in June 2024. Has been referred to oral surgeon for delayed healing from dentist. Will obtain panoramic x-ray to rule out AVN given that she is on treatment with Prolia. Chronic right shoulder pain 04/13/2023 Assessment & Plan (12/31/2023 1:47 PM ONCOLOGY NURSE): Several months ago, she developed right shoulder discomfort after moving a piece of furniture. Has right shoulder pain with resisted internal/external rotation and right shoulder abduction. Suspect rotator cuff tendinitis. She previously deferred physical therapy. With that said, notes that she will be proceeding with physical therapy in the near future to address this. Assessment & Plan (10/01/2023 4:24 PM ONCOLOGY NURSE): Last visit, has complained of discomfort in the right shoulder with difficulty reaching forward due to pain in the shoulder. Had right shoulder pain on exam with right shoulder flexion. Has ttp over the R anterior shoulder. Suspect rotator cuff tendinitis vs bursitis. Discussed PT, which she defers at this time. Assessment & Plan (04/13/2023 12:10 PM CDT): Has TTP over the right shoulder with pain elicited with resisted right shoulder abduction. Discussed physical therapy, which she defers at this time. Symptoms are manageable with lidocaine spray Epigastric pain 08/11/2022 Assessment & Plan (08/11/2022 12:05 PM CDT): Has noted discomfort over the epigastric region, which is not associated with food intake. Notes diarrhea, but denies melena/hematochezia. Has tenderness to palpation of the epigastric, left upper quadrant, and left lower quadrant without guarding. Recommended discussion with PCP, as would likely benefit from a GI evaluation. Dizziness 08/11/2022 Assessment & Plan (08/11/2022 12:07 PM CDT): Describes intermittent dizziness with 2 recent falls. Denies vertigo. Had no drop in blood pressure when taken from supine to standing position. Recommended that she monitor blood pressure taking lying down followed by standing to monitor for orthostatic hypotension. Have recommended she reach out to Neurology about gabapentin, as this could be a potential cause for her symptoms. Metoprolol is a possible cause as well, although would discuss this with PCP. Defers PT to work on gait stability. Frequent headaches 08/11/2022 Assessment & Plan (04/13/2023 12:11 PM CDT): Has periorbital migraines. Takes daily Tylenol. Recommended follow-up with PCP and/or Neurology Assessment & Plan (08/11/2022 12:08 PM CDT): Localizes over the frontal sinus. Takes daily tylenol. Recommended discussion with neurology. Pain of left forearm 06/17/2021 Assessment & Plan (02/02/2022 10:56 AM CDT): A primary complaint for the past several visits has been persistent left forearm pain. She previously received a depo-medrol injection into the L FCR tendon per thai Mendiola, on 06/18/2021. This offered temporary benefit for 4 weeks with a return in symptoms. No benefit with prednisone. After last visit, she was re-evaluated by Dr. Perez. He recommended OTC advil and voltaren gel, which has offered significant benefit. Recommended surgical intervention if symptoms persist or worsen, which defers at this time. Assessment & Plan (11/03/2021 9:50 AM ONCOLOGY NURSE): A primary complaint for the past several visits has been persistent left forearm pain. She she was evaluated by thai Mendiola, on 06/18/2021. He did administer a depo-medrol injection into the left FCR tendon. This offered temporary benefit for 4 weeks with a return in symptoms. No benefit with prednisone. Is scheduled to follow up with thai Mendiola, on Wednesday of this week. Assessment & Plan (10/06/2021 10:12 AM ONCOLOGY NURSE): A primary complaint for the past several visits has been left forearm pain. She she was evaluated by thai Mendiola, on 06/18/2021. He did administer a depo-medrol injection into the left FCR tendon. This offered temporary benefit for 4 weeks with a return in symptoms. Short prednisone taper prescribed last visit did not offer significant benefit. Recommend follow-up with Dr. Perez. Assessment & Plan (09/09/2021 12:20 PM ONCOLOGY NURSE): A primary complaint at last visit was left forearm pain. She she was evaluated by thai Mendiola, on 06/18/2021. He did administer a depo-medrol injection into the left FCR tendon. This offered temporary benefit for 4 weeks with a return in symptoms. Will prescribe a short prednisone taper of 10 mg daily x7 days and 5 mg daily x7 days to see if this improves symptoms. Patient was advised of the potential side effects of the medication, including but not limited to increased blood sugar, weight gain, avascular necrosis, glaucoma, cataracts, and/or osteoporosis. If symptoms persist, may benefit from follow-up with Dr. Perez, which was discussed. Assessment & Plan (06/17/2021 11:06 AM CDT): Her primary complaint today is significant persistent pain in the left forearm with significant tenderness over the distal anterior forearm. Pain elicited with flexion of her 1/2 digits. No major benefit with mobic and caused headaches along with elevations in creatinine. Will refer to Dr. Perez for further evaluation and management. Elevated liver enzymes 12/26/2020 Overview (09/09/2021): Right upper quadrant ultrasound 01/03/2021: WNL Labs 12/2020 displayed positive smooth muscle antibody 47, negative mitochondrial antibody. Labs 05/2021 revealed smooth muscle antibody 60 and mitochondrial antibody negative. She was evaluated by hepatology and released for monitoring Assessment & Plan (09/01/2021 10:40 AM CDT): She had a mild acute elevation in her LFTs earlier in 2020. She has had a normal ultrasound, and her LFts have since normalized. She does have a positive MELINA, but this is to be expected with her other autoimmune conditions. Additionally, she has had anti-smooth muscle antibody checked x2, and both results were negative. We do not believe her mild and transient elevation in LFTs in early 2020 were due to autoimmune hepatitis. Based on the history provided today, she may have experienced a mild drug induced liver injury in relation to starting azathioprine, but this is hard to say for sure at this time. Her AST/ALT are now normal, and she is feeling well. We would recommend continuing to check AST/ALT with her normal/yearly lab work. If these values were to increase again and stay elevated, we can re-discuss the differential and next steps. She can follow in Hepatology clinic PRN Assessment & Plan (06/17/2021 11:03 AM CDT): Right upper quadrant ultrasound 01/03/2021: WNL. Most recent LFTs back within normal limits. Labs 12/2020 displayed positive smooth muscle antibody 47, negative mitochondrial antibody. Labs 05/2021 revealed smooth muscle antibody 60 and mitochondrial antibody negative. Is scheduled to see hepatology in September. Assessment & Plan (05/08/2021 12:53 PM CDT): Right upper quadrant ultrasound 01/03/2021: WNL. Most recent LFTs back within normal limits. Labs 12/2020 displayed positive smooth muscle antibody 47, negative mitochondrial antibody. Is scheduled to see hepatology in September. Recheck labs today. Assessment & Plan (02/06/2021 11:18 AM CDT): Right upper quadrant ultrasound 01/03/2021: WNL. Most recent LFTs back within normal limits. Labs 12/2020 displayed positive smooth muscle antibody 47, negative mitochondrial antibody. Is scheduled to see hepatology in September Assessment & Plan (12/26/2020 12:48 PM ONCOLOGY NURSE): Will check ama/f actin and obtain liver US. Recheck labs today. Chronic bilateral low back pain without sciatica 09/17/2020 Overview (09/18/2020): X-ray cervical spine 09/17/2020: Moderate degenerative endplate changes with disc space narrowing at C5-C6 and C6- C7. 2 mm posterior malalignment of C5 on C6 L-spine moderate scoliosis of the lower thoracic and upper lumbar convex to the right and [id number] scoliosis the med mid lumbar convex to the left moderate to advanced OA changes with disc space narrowing Assessment & Plan (09/17/2020 12:53 PM ONCOLOGY NURSE): Defers PT and/or pain management evaluation. Will obtain baseline imaging. Neck pain 09/17/2020 Overview (09/18/2020): X-ray cervical spine 09/17/2020: Moderate degenerative endplate changes with disc space narrowing at C5-C6 and C6- C7. 2 mm posterior malalignment of C5 on C6 L-spine moderate scoliosis of the lower thoracic and upper lumbar convex to the right and [id number] scoliosis the med mid lumbar convex to the left moderate to advanced OA changes with disc space narrowing Assessment & Plan (02/02/2022 11:01 AM CDT): X-ray cervical spine 09/17/2020: Moderate degenerative endplate changes with disc space narrowing at C5-C6 and C6- C7. 2 mm posterior malalignment of C5 on C6 At today's visit, she describes an occasional sharp stabbing pain in the left mid bicep. She had a similar experience in the past many years prior and was advised that this was secondary to a disc herniation/nerve impingement in the neck advised by neurosurgery, per her report. At that time, they had prescribed a Medrol Dosepak with full resolution of symptoms. As symptoms are very infrequent at this time, will monitor. If symptoms recur, we could consider a medrol pack given the length of time with response. Defers PT. If no benefit, would need further evaluation with pain management and/or neurosurgery, which was discussed. Assessment & Plan (09/17/2020 12:54 PM ONCOLOGY NURSE): Defers PT and/or pain management evaluation. Will obtain baseline imaging. Encounter for long-term (current) use of medicat ions 08/06/2020 Assessment & Plan (03/13/2025 1:27 PM CDT): Neg quant 07/23/2020 Neg hep panel 07/23/2020 Assessment & Plan (11/14/2024 2:59 PM ONCOLOGY NURSE): Neg quant 07/23/2020 Neg hep panel 07/23/2020 Assessment & Plan (04/12/2024 1:48 PM CDT): Neg quant 07/23/2020 Neg hep panel 07/23/2020 Assessment & Plan (12/31/2023 1:47 PM ONCOLOGY NURSE): Neg quant 07/23/2020 Neg hep panel 07/23/2020 Assessment & Plan (10/01/2023 4:22 PM ONCOLOGY NURSE): Neg quant 07/23/2020 Neg hep panel 07/23/2020 Assessment & Plan (08/20/2023 12:14 PM CDT): Neg quant 07/23/2020 Neg hep panel 07/23/2020 Assessment & Plan (04/13/2023 12:08 PM CDT): Neg quant 07/23/2020 Neg hep panel 07/23/2020 Assessment & Plan (11/30/2022 11:14 AM ONCOLOGY NURSE): Neg quant 07/23/2020 Neg hep panel 07/23/2020 Assessment & Plan (05/11/2022 10:19 AM CDT): Neg quant 07/23/2020 Neg hep panel 07/23/2020 Assessment & Plan (02/02/2022 10:54 AM CDT): Neg quant 07/23/2020 Neg hep panel 07/23/2020 Assessment & Plan (11/03/2021 9:49 AM ONCOLOGY NURSE): Neg quant 07/23/2020 Neg hep panel 07/23/2020 Assessment & Plan (10/06/2021 10:13 AM ONCOLOGY NURSE): Neg quant 07/23/2020 Neg hep panel 07/23/2020 Assessment & Plan (09/09/2021 12:22 PM ONCOLOGY NURSE): Neg quant 07/23/2020 Neg hep panel 07/23/2020 Assessment & Plan (06/17/2021 11:02 AM CDT): Neg quant 07/23/2020 Neg hep panel 07/23/2020 Assessment & Plan (05/08/2021 12:53 PM CDT): Neg quant 07/23/2020 Neg hep panel 07/23/2020 Assessment & Plan (02/06/2021 11:16 AM CDT): Neg quant 07/23/2020 Neg hep panel 07/23/2020 Assessment & Plan (12/26/2020 12:47 PM ONCOLOGY NURSE): Neg quant 07/23/2020 Neg hep panel 07/23/2020 Assessment & Plan (11/21/2020 11:00 AM ONCOLOGY NURSE): Neg quant 07/23/2020 Neg hep panel 07/23/2020 Assessment & Plan (10/21/2020 12:16 PM ONCOLOGY NURSE): Neg quant 07/23/2020 Neg hep panel 07/23/2020 Assessment & Plan (09/17/2020 12:53 PM ONCOLOGY NURSE): Neg quant 07/23/2020 Neg hep panel 07/23/2020 Assessment & Plan (08/06/2020 10:34 AM CDT): Neg quant 07/23/2020 Neg hep panel 07/23/2020 Seropositive rheumatoid arthritis 07/23/2020 Overview (08/21/2020): Initial labs 07/23/2020: Negative QuantiFERON Avise 07/24/2020: Positive MELINA 1:160 speckled, positive rheumatoid factor IgM 80, but otherwise negative Left hand/wrist ultrasound 07/31/2020: Moderate/marked 2nd PIP and marked 3rd PIP synovial thickening with grade 1 power Doppler the 2nd PIP. Volar dips 2-5 have grade 2 power Doppler at the profundus tendons insertions. Fourth compartment effusion X-ray 07/23/2020: Chest x-ray: WNL Left hand: 1st MCP OA, 1st IP OA, mild 2nd PIP OA, scaphoid multi annular joint OA with subarticular sclerosis Right hand: Mild 1st MCP OA Left hip: WNL Left foot: Mild moderate 3rd PIP OA, mild 1st MTP OA with Rudy valgus Right foot: WNL 70 yoF with a history of seropositive RA and sjogren's syndrome prior seen by Dr. Aguila currently on hcq and prednisone 5 mg daily. Stopped arava due to alopecia, mtx due to alopecia/elevated lfts in the past. Persistent joint pain, stiffness in the khanh hands/wrists (mcp>remaining joints)(L>R), elbows>ankles. AM stiffness for 1- 2 hours. Synovitis present on exam. Ulnar deviation khanh hands. Appears consistent with RA. Will further evaluate with appropriate serologies, radiographs, L hand US. Depending on findings, consider additional treatment with humira, which was discussed with patient today. DEXA 08/20/2020: Left femoral neck-2.1, left total hip:-1.1, right femoral neck: -2.0, right total hip:-1.1, FRAX 21/5.6 Assessment & Plan (03/13/2025 1:26 PM CDT): CDAI 6. Jory stopped hcq 2 months ago, has willing to monitor symptoms off medication. Denies any change in joint symptoms. Overall, joints are doing very well at this time with no significant complaints. Few swollen joints without tenderness. She has feel that joints symptoms are well managed on current treatment regimen and does remain low disease activity per CDAI. Continue Orencia infusions. Continue OTC Tylenol PRN. Avoid NSAIDs given CKD. Routine labs today. Follow-up 3 months. Sooner if needed. Assessment & Plan (11/14/2024 2:57 PM ONCOLOGY NURSE): CDAI 12. Since last visit, has noted some mild discomfort throughout the joints of the bilateral hands with a.m. stiffness for 30 minutes. Has few swollen joints of the right hand, as above. Given some of her residual active joint complaints with low moderate CDAI, did discuss potentially switching to alternative biologic. At this time, she does feel that symptoms are managed fairly well on current treatment regimen would like to maintain on current treatment. Could be reconsidered with worsened symptoms. Will continue hydroxychloroquine 300 mg daily with Orencia infusions. Continue OTC Tylenol p.r.n.. Avoid NSAIDs given CKD. Routine labs today. Follow-up 3 months. Sooner if needed. Assessment & Plan (07/12/2024 1:30 PM CDT): CDAI 34. After last visit, she did trial holding hydroxychloroquine given concerns for polypharmacy and wanted to limit medications. She was 1 month overdue for infusion due to tooth procedure, as well. Subsequently developed increased joint pain, stiffness, and swelling predominantly in the hands with a.m. stiffness for 45-60 minutes. Has since resumed hydroxychloroquine 2-3 weeks prior and has resumed infusions. Symptoms are gradually improving with some persistent residual discomfort. Scattered tender and swollen joints, as above. Suspect her exacerbation of symptoms likely secondary to being off her medications. Will continue hydroxychloroquine 300 mg daily with Orencia IV infusions. Continue OTC Tylenol p.r.n.. Avoid NSAIDs given CKD. If symptoms persist, she is to notify our office and will prescribe a short prednisone taper. Routine labs today. Follow-up 3 months. Sooner if needed. Assessment & Plan (04/12/2024 1:47 PM CDT): CDAI 2. Jory has continued to do very well since last visit without significant joint pain and or prolonged a.m. stiffness. Minimal synovitis on exam. Remains in remission per CDAI. Given that symptoms have remained very well managed, she would like to discuss potentially stopping some of her medications. We did discuss the risks of recurrent inflammation upon stopping medications. After discussion, she would like to try reducing hydroxychloroquine to 50 mg daily weeks followed by discontinuation of the medication. Otherwise, will continue Orencia IV infusions. Continue OTC Tylenol p.r.n.. Avoid NSAIDs and other nephrotoxin given her CKD. Routine labs today. Follow-up 3 months. Sooner if needed. Assessment & Plan (12/31/2023 1:46 PM ONCOLOGY NURSE): CDAI 2. Since last visit, has done very well with no significant peripheral joint complaints. Does have some discomfort attributed to a ganglion cyst over the volar radial aspect of the left wrist in his being scheduled to have this removed per Orthopedics. Otherwise, has some chronic right shoulder pain from injury discussed below. Overall, do feel that her inflammatory arthritis is well managed with minimal swelling on exam. Low disease activity per CDAI. Will continue Plaquenil 300 mg daily and Orencia IV infusions. Continue OTC Tylenol p.r.n.. Avoid NSAIDs and other nephrotoxins given her CKD. Routine labs today. Follow-up 3 months. Sooner if needed. Assessment & Plan (10/01/2023 4:21 PM ONCOLOGY NURSE): CDAI 4. Joint symptoms are improved with the Kenalog IM injection given at last visit. Has resumed hydroxychloroquine 300 mg daily and tolerated this well. Ophthalmology gave approval for her to continue on hydroxychloroquine at this dose. Has fairly minimal joint complaints at this time with some mild residual discomfort in the morning with a.m. stiffness for 60-90 minutes. Minimal synovitis on exam. Does appear well managed. Will continue Plaquenil 300 mg daily. Continue Orencia IV infusions. Continue OTC Tylenol p.r.n.. Avoid NSAIDs and other nephrotoxins given her CKD. Routine labs today. Follow-up 3 months. Sooner if needed. Assessment & Plan (08/20/2023 12:12 PM CDT): CDAI 29. After last visit, Jory reduced her hydroxychloroquine to 200 mg daily. Since that time, has experienced a flare with significant increased pain/stiffness in the hands/wrists, shoulders, and ankles predominantly. A.m. stiffness for several hours. Significant increased fatigue symptoms. Has scattered swollen and tender joints, as above. Does not appear adequately controlled. Due to burden of disease, will administer kenalog 100 mg IM injection, in office, today. Patient was advised of the potential side effects of the medication, including but not limited to increased blood sugar, weight gain, avascular necrosis, glaucoma, cataracts, and/or osteoporosis. After extensive discussion about the potential retinal toxicity wrists with Plaquenil, patient would like to increase Plaquenil back to 300 mg daily, which is slightly above her appropriate weight based dosing of 5 milligrams/kilogram. 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 In the meantime, will increase to Plaquenil 300 mg daily and continue Orencia IV infusions. Continue OTC Tylenol p.r.n.. Recommended against use of NSAIDs and/or nephrotoxins given her CKD. Routine labs today. Follow-up 4 weeks. Sooner if needed. Assessment & Plan (04/13/2023 12:07 PM CDT): CDAI 9. Overall, Jory has done fairly well since last visit. Has fairly mild peripheral joint complaints at this time, there does note a.m. stiffness for up to an hour. Otherwise, has had some right shoulder discomfort, which I suspect is likely unrelated to her inflammatory arthritis. She defers physical therapy for this. Persistent low disease activity per CDAI. Will maintain on Plaquenil 200 mg daily and Orencia IV infusions. Continue OTC Tylenol p.r.n. given her degenerative/mechanical joint complaints. Have recommended against use of NSAIDs and/or other nephrotoxins given her CKD. Routine labs today. Follow-up 3 months. Sooner if needed. Assessment & Plan (11/30/2022 11:14 AM ONCOLOGY NURSE): CDAI 9. Joints remain stable and fairly well managed on current treatment regimen. Low disease activity per CDAI. Will continue Plaquenil 200 mg daily and Orencia IV infusions. Is up-to-date on eye exams. Routine labs today. Follow-up 3 months. Sooner if needed. Assessment & Plan (08/11/2022 12:01 PM CDT): CDAI 9. Joints stable and fairly well managed on current treatment regimen. Will continue Plaquenil 200 mg daily and Orencia IV infusions. Routine labs today. Follow-up 3 months. Sooner if needed. Seen with Dr. Jade. Assessment & Plan (05/11/2022 10:19 AM CDT): CDAI 24.5. Appears to be in a flare of her inflammatory arthritis over the previous 2 weeks. Symptoms were well managed prior to the flare. Due to burden of disease, will administer kenalog 100 mg IM injection, in office, today. Patient was advised of the potential side effects of the medication, including but not limited to increased blood sugar, weight gain, avascular necrosis, glaucoma, cataracts, and/or osteoporosis. Otherwise, will continue Plaquenil 200 mg daily, Orencia IV infusions. Continue OTC Advil while monitoring renal function. Routine labs today. Follow- up 3 months. Sooner if needed. If symptoms persist or worsen again, would consider additional/alternative options at that point. Assessment & Plan (02/02/2022 10:54 AM CDT): CDAI 7. Inflammatory arthritis appears well managed on current treatment regimen. Low disease activity per CDAI. Will continue Plaquenil 200 mg daily, Orencia IV infusions. Continue OTC Advil while monitoring renal function. Routine labs today. Follow-up 3 months. Sooner if needed. Assessment & Plan (11/03/2021 9:48 AM ONCOLOGY NURSE): CDAI 16. Jory was unable to tolerate azathioprine after last visit due to nausea vomiting. Does continue to have some residual joint discomfort in the hands, elbows, ankles with a.m. stiffness for 60 minutes. Some synovitis does persist on exam. Given moderate CDAI, we did discuss switching Orencia to Rinvoq, including the side effects. She would like to maintain on current treatment regimen at this time and is willing to reconsider if symptoms exacerbate. For this reason, will continue Plaquenil 200 mg daily, Orencia IV infusions. Routine labs today. Follow-up 3 months. Sooner if needed. Assessment & Plan (10/06/2021 10:11 AM ONCOLOGY NURSE): CDAI 12. Presents today due to recent flare with increased joint pain, stiffness, swelling in the bilateral hands along with discomfort in the bilateral shoulders. Symptoms have improved significantly over the past 2 days, does continue to have some residual discomfort. Swelling and tenderness was noted on exam today. Given the recent flare, will prescribe a short course prednisone 15 mg daily x4 days, 10 mg daily x4 days, 5 mg daily x4 days and stop. Patient was advised of the potential side effects of the medication, including but not limited to increased blood sugar, weight gain, avascular necrosis, glaucoma, cataracts, and/or osteoporosis. She was also given extra prednisone 10 mg daily to be used in the case acute flares, although is to notify us if experiences a recurrent flare. As liver enzymes have normalized, will restart azathioprine at a low dose of 50 mg daily. Discussed the potential side effects of the medication, including but not limited to GI upset, blood count abnormalities, increased infection, and/or allergic reaction. Otherwise, will continue Plaquenil 200 mg daily, Orencia IV infusions. Recent labs reviewed. Follow-up 4 weeks. Sooner if needed. Assessment & Plan (09/09/2021 12:17 PM ONCOLOGY NURSE): CDAI 0. Peripheral joints continue to do very well with essentially no complaints. No obvious synovitis today. Appears adequately controlled. Will continue Plaquenil 300 mg daily, Orencia IV infusions. Routine labs today. Follow-up 3 months. Sooner if needed. Seen with Dr. Jade. Assessment & Plan (06/17/2021 11:01 AM CDT): CDAI 6. Her peripheral joints continue to do very well at this time without significant complaints. Minimal swelling in the right hand on exam. Inflammatory arthritis does appear adequately controlled. Will continue Plaquenil 300 mg daily, Orencia IV infusions. Routine labs today. Follow-up 3 months. Sooner if needed. Seen with Dr. Jade. Given that LFTs have now normalized, could reconsider azathioprine in the future if symptoms worsen. Assessment & Plan (05/08/2021 12:52 PM CDT): CDAI 10. Since last visit, she has tapered off prednisone. Her primary complaint is some discomfort over her left anterior forearm, which may represent enthesitis. She does some mild discomfort in the hands, elbows, shoulders. Some synovitis does persist across few joints on exam. Given some of her residual joint pain along with forearm pain, discussed additional treatment with mobic 15 mg daily, which she was amenable to. Discussed side effects of the medication, including but not limited to GI upset, kidney, and ulcers. Otherwise, will continue Plaquenil 300 mg daily, Orencia IV infusions. Routine labs today. Follow-up 4 weeks. Sooner if needed. Seen with Dr. Jade. Given that LFTs have now normalized, could reconsider azathioprine it in the future if symptoms worsened. Assessment & Plan (02/06/2021 11:15 AM CDT): CDAI 3. Since last visit, she has received her 1st Orencia infusion. She did note generalized itchiness for 2 days post infusion, although suspect is likely unrelated to the medication. She has self decreased prednisone to 5 mg daily for the past 2 weeks. Overall, notes that joints are doing very well. Denies any a.m. stiffness. Minimal swelling in the right hand without any other obvious synovitis. Appears adequately controlled. Will continue Plaquenil 300 mg daily, Orencia IV infusions. Begin to taper prednisone by 1 mg every 4 weeks until off. Follow-up 3 months. Sooner if needed. Given that LFTs now normalized, could reconsider azathioprine in the future if symptoms worsen. Assessment & Plan (12/26/2020 12:46 PM ONCOLOGY NURSE): CDAI 23. Since last visit, patient was forced to stop azathioprine due to persistent elevated LFTs. She has remained on Humira q.2 weeks subcutaneous injections with Plaquenil 300 mg daily and prednisone 5 mg daily. Since stopping azathioprine, she notes increased joint pain in the hands/wrists, ankles. A.m. stiffness for 60 minutes. Synovitis does persist on exam. She denies any major benefit since beginning Humira. For this reason, will stop Humira at this time and begin approval for Orencia IV infusions. Patient advised of the side effects of the medication, including but not limited to increased risk of infection, injection site reaction, and/or new rash. Will continue Plaquenil 300 mg daily. Continue prednisone 5 mg daily with the hopes of tapering in the future. Routine labs today. Follow-up 6 weeks. Sooner if needed. Seen with Dr. Jade. If LFTs normalize, could reconsider azathioprine in the future. Assessment & Plan (11/21/2020 11:02 AM ONCOLOGY NURSE): CDAI 4. Since last visit, patient has begun azathioprine without any side effects. Noted a significant benefit with Kenalog IM injection given at last visit without any active joint complaints at present. Mild swelling in the right hand without any other active synovitis. Would like to increase azathioprine to 50 mg b.i.d. for additional steroid sparing therapy. Continue Plaquenil 300 mg daily, Humira Q 2 weeks subcutaneous injections. Continue prednisone 5 mg daily. Patient has been made aware of the potential side effects of prednisone, including but not limited to increased blood sugar, weight gain, avascular necrosis, glaucoma, cataracts, and/or osteoporosis. Routine labs today. Follow-up weeks. Sooner if needed. Assessment & Plan (10/21/2020 12:14 PM ONCOLOGY NURSE): CDAI 30. Patient has remained on Humira x2 months without any improvement in symptoms. Since last visit, she was forced increase prednisone to 10 mg daily due to persistent joint pain in the ankles, wrists/hands, elbows. Considerable synovitis appreciated on exam today. Appears very poorly controlled, although would like to allow the Humira medication more time to take effect. Given her very poor control and steroid requirements, would like to begin additional treatment with azathioprine 50 mg daily. Discussed the potential side effects of the medication, including but not limited to GI upset, blood count abnormalities, increased infection, and/or allergic reaction. Will continue Plaquenil 300 mg daily, Humira Q 2 weeks subcutaneous injections. Continue prednisone 10 mg daily at this time with hopes of tapering in the future. Routine labs today. Follow-up 4 weeks. Sooner if needed. Due to burden of disease, will administer kenalog 100 mg IM injection, in office, today. Patient was advised of the potential side effects of the medication, including but not limited to increased blood sugar, weight gain, avascular necrosis, glaucoma, cataracts, and/or osteoporosis. Assessment & Plan (09/17/2020 12:51 PM ONCOLOGY NURSE): CDAI 30. Patient has begun Humira without any side effects. Denies any improvement in symptoms. Has restarted prednisone 5 mg daily yesterday due to persistent joint complaints in the ankles, wrists/hands, neck, lower back. A.m. stiffness for 2 hours. Synovitis does persist on exam. Not adequately controlled, although would like to allow the Humira medication more time to take effect. Continue Plaquenil 300 mg daily, Humira Q 2 weeks subcutaneous injections. Will continue prednisone 5 mg daily at this time with the hopes of tapering at next visit. Follow-up 8 weeks. Sooner if needed. Seen with Dr. Jade. Assessment & Plan (08/06/2020 10:32 AM CDT): 70 yoF with a history of seropositive RA and sjogren's syndrome prior seen by Dr. Aguila currently on hcq and prednisone 5 mg daily. Stopped arava due to alopecia, mtx due to alopecia/elevated lfts in the past. Persistent joint pain, stiffness in the khanh hands/wrists (mcp>remaining joints)(L>R), elbows>ankles. AM stiffness for 1- 2 hours. Synovitis present on exam. Ulnar deviation khanh hands. cdai 27. Labs, as above, displayed pos melina 1:160 speckled, pos rf igm, but otherwise labs were negative. L hand US displayed inflammatory findings, as above. Given the symptoms, serologies, US findings, this is consistent with seropositive RA, which is not quite adequately controlled. Will begin approval for humira q2 week sq injections. Patient advised of the side effects of the medication, including but not limited to increase risk of infection, rash, injection site reaction. Will reduce hcq to 300 mg daily (weight based dosing). Fu 6 weeks. Sooner if needed. Seen with Dr. Jade. Assessment & Plan (07/23/2020 1:48 PM CDT): 70 yoF with a history of seropositive RA and sjogren's syndrome prior seen by Dr. Aguila currently on hcq and prednisone 5 mg daily. Stopped arava due to alopecia, mtx due to alopecia/elevated lfts in the past. Persistent joint pain, stiffness in the khanh hands/wrists (mcp>remaining joints)(L>R), elbows>ankles. AM stiffness for 1- 2 hours. Synovitis present on exam. Ulnar deviation khanh hands. Appears consistent with RA. Will further evaluate with appropriate serologies, radiographs, L hand US. Depending on findings, consider additional treatment with humira, which was discussed with patient today. Fu 2 weeks. Sooner if needed. Seen with Dr. Jade. Greater trochanteric pain syndrome 07/23/2020 Assessment & Plan (09/17/2020 12:53 PM ONCOLOGY NURSE): Long-standing history of pain and tenderness of the L lateral hip consistent with greater trochanteric pain syndrome. S/p L US guided hip bursa injection on 07/31/2020. Continue exercise sheet. PT made symptoms much worse. Defers orthopedic referral at this time. Assessment & Plan (08/06/2020 10:33 AM CDT): Long-standing history of pain and tenderness of the L lateral hip consistent with greater trochanteric pain syndrome. S/p L US guided hip bursa injection on 07/31/2020. Continue exercise sheet. Assessment & Plan (07/23/2020 1:51 PM CDT): Long-standing history of pain and tenderness of the L lateral hip consistent with greater trochanteric pain syndrome. She has received several L hip bursa injections over the past several years and is requesting a repeat injection. Risks and benefits of the injection was discussed with patient, including infection, tendon rupture. Will order US guided L bursa injection. Given exercise handout and will refer to PT. Pain of foot 12/24/2014 Dermatitis venenata 05/08/2014 Sjogren's syndrome 03/17/2014 Overview (02/05/2017): SICCA SYNDROME Assessment & Plan (03/13/2025 1:26 PM CDT): Has chronic dry eyes/dry mouth. Continue symptomatic treatment of frequent fluids, Biotene mouthwash, good dental care,eye drops prn. Previously trialed pilocarpine, although noted intolerable side effects. Symptoms are manageable at this time. Assessment & Plan (11/14/2024 2:57 PM ONCOLOGY NURSE): Has chronic dry eyes/dry mouth. Continue symptomatic treatment of frequent fluids, Biotene mouthwash, good dental care,eye drops prn. Previously trialed pilocarpine, although noted intolerable side effects. Symptoms are manageable at this time. Assessment & Plan (07/12/2024 1:32 PM CDT): Has chronic dry eyes/dry mouth. Continue symptomatic treatment of frequent fluids, Biotene mouthwash, good dental care,eye drops prn. Previously trialed pilocarpine, although noted intolerable side effects. Symptoms are manageable at this time. Assessment & Plan (04/12/2024 1:47 PM CDT): Has chronic dry eyes/dry mouth. Continue symptomatic treatment of frequent fluids, Biotene mouthwash, good dental care,eye drops prn. Assessment & Plan (12/31/2023 1:46 PM ONCOLOGY NURSE): Has chronic dry eyes/dry mouth. Continue symptomatic treatment of frequent fluids, Biotene mouthwash, good dental care,eye drops prn. Assessment & Plan (10/01/2023 4:21 PM ONCOLOGY NURSE): Has chronic dry eyes/dry mouth. Continue symptomatic treatment of frequent fluids, Biotene mouthwash, good dental care,eye drops prn. Assessment & Plan (08/20/2023 12:14 PM CDT): Has chronic dry eyes/dry mouth. Continue symptomatic treatment of frequent fluids, Biotene mouthwash, good dental care,eye drops prn. Assessment & Plan (04/13/2023 12:07 PM CDT): Has chronic dry eyes/dry mouth. Continue symptomatic treatment of frequent fluids, Biotene mouthwash, good dental care,eye drops prn. Assessment & Plan (11/30/2022 11:14 AM ONCOLOGY NURSE): Has chronic dry eyes/dry mouth. Continue symptomatic treatment of frequent fluids, Biotene mouthwash, good dental care,eye drops prn. Assessment & Plan (08/11/2022 12:02 PM CDT): Continue symptomatic treatment of frequent fluids, Biotene mouthwash, good dental care,eye drops prn. Assessment & Plan (05/11/2022 10:19 AM CDT): Continue symptomatic treatment of frequent fluids, Biotene mouthwash, good dental care,eye drops prn. Assessment & Plan (02/02/2022 10:54 AM CDT): Continue symptomatic treatment of frequent fluids, Biotene mouthwash, good dental care,eye drops prn. Assessment & Plan (11/03/2021 9:48 AM ONCOLOGY NURSE): Continue symptomatic treatment of frequent fluids, Biotene mouthwash, good dental care,eye drops prn. Osteopenia 12/05/2013 Overview (02/05/2017): Osteopenia Assessment & Plan (03/13/2025 1:29 PM CDT): DEXA 08/20/2020: Left femoral neck-2.1, left total hip:-1.1, right femoral neck: -2.0, right total hip:-1.1, FRAX 21/5.6 DEXA 11/06/2022: L-spine 4.7, left femoral neck-2, left total hip-1, right femoral neck -1.7 Previously risedronate x 2+ years. Lasts Prolia on 10/03/2024. Most recent vitamin-D 11/2024 was 65. Continue calcium and vitamin-D. Continue Prolia q.6 months. Will obtain updated dexa. Assessment & Plan (11/14/2024 2:59 PM ONCOLOGY NURSE): DEXA 08/20/2020: Left femoral neck-2.1, left total hip:-1.1, right femoral neck: -2.0, right total hip:-1.1, FRAX 21/03.6 DEXA 11/06/2022: L-spine 4.7, left femoral neck-2, left total hip-1, right femoral neck -1.7 Previously risedronate x 2+ years. Lasts Prolia on 10/03/2024. Most recent vitamin-D 07/12/2024 was 56. Given her recent jaw pain stemming from tooth extraction in June 2024, would like to obtain panoramic x-ray to rule out AVN. She is scheduled to see oral surgeon in December. Continue calcium and vitamin-D. Continue Prolia q.6 months Assessment & Plan (07/12/2024 1:31 PM CDT): DEXA 08/20/2020: Left femoral neck-2.1, left total hip:-1.1, right femoral neck: -2.0, right total hip:-1.1, FRAX 21/03.6 DEXA 11/06/2022: L-spine 4.7, left femoral neck-2, left total hip-1, right femoral neck -1.7 Previously risedronate x 2+ years. Last vitamin-D 12/2023 was 74. Continue otc ca and vit d. continue Prolia every 6 months. Last Prolia 03/14/2024. Will recheck vitamin-D today. Continue Prolia every 6 months Assessment & Plan (04/12/2024 1:48 PM CDT): DEXA 08/20/2020: Left femoral neck-2.1, left total hip:-1.1, right femoral neck: -2.0, right total hip:-1.1, FRAX 21/5.6 DEXA 11/06/2022: L-spine 4.7, left femoral neck-2, left total hip-1, right femoral neck -1.7 Previously risedronate x 2+ years. Last vitamin-D 12/2023 was 74. Continue otc ca and vit d. continue Prolia every 6 months Assessment & Plan (12/31/2023 1:47 PM ONCOLOGY NURSE): DEXA 08/20/2020: Left femoral neck-2.1, left total hip:-1.1, right femoral neck: -2.0, right total hip:-1.1, FRAX 21/5.6 DEXA 11/06/2022: L-spine 4.7, left femoral neck-2, left total hip-1, right femoral neck -1.7 Previously risedronate x 2+ years. Last vitamin-D 04/2023 was 53. Last Prolia on 06/25/2023. Continue otc ca and vit d. will recheck vitamin-D and schedule next Prolia. Assessment & Plan (10/01/2023 4:22 PM ONCOLOGY NURSE): DEXA 08/20/2020: Left femoral neck-2.1, left total hip:-1.1, right femoral neck: -2.0, right total hip:-1.1, FRAX 21/5.6 DEXA 11/06/2022: L-spine 4.7, left femoral neck-2, left total hip-1, right femoral neck -1.7 Previously risedronate x 2+ years. Last vitamin-D 04/2023 was 53. Last Prolia on 06/25/2023. Continue otc ca and vit d. Assessment & Plan (08/20/2023 12:13 PM CDT): DEXA 08/20/2020: Left femoral neck-2.1, left total hip:-1.1, right femoral neck: -2.0, right total hip:-1.1, FRAX 21/5.6 DEXA 11/06/2022: L-spine 4.7, left femoral neck-2, left total hip-1, right femoral neck -1.7 Previously risedronate x 2+ years. Last vitamin-D 11/30/2022 was 47. Most recent vitamin-D with 04/13/2023. Last Prolia on 06/25/2023. Continue otc ca and vit d. will recheck vitamin-D today. Assessment & Plan (04/13/2023 12:10 PM CDT): DEXA 08/20/2020: Left femoral neck-2.1, left total hip:-1.1, right femoral neck: -2.0, right total hip:-1.1, FRAX 21/5.6 DEXA 11/06/2022: L-spine 4.7, left femoral neck-2, left total hip-1, right femoral neck -1.7 Previously risedronate x 2+ years. Last Prolia 12/2022. Last vitamin-D 11/30/2022 was 47. Continue prolia q6 month injections. Continue otc ca and vit d. will recheck vitamin-D today. Assessment & Plan (11/30/2022 1:54 PM ONCOLOGY NURSE): DEXA 08/20/2020: Left femoral neck-2.1, left total hip:-1.1, right femoral neck: -2.0, right total hip:-1.1, FRAX 21/5.6 DEXA 11/06/2022: L-spine 4.7, left femoral neck-2, left total hip-1, right femoral neck -1.7 Previously risedronate x 2+ years. Last Prolia 05/15/2022. Last vitamin-D 04/17/2022 was 44. Continue prolia q6 month injections. Continue otc ca and vit d. Assessment & Plan (08/11/2022 12:03 PM CDT): DEXA 08/20/2020: Left femoral neck-2.1, left total hip:-1.1, right femoral neck: -2.0, right total hip:-1.1, FRAX 21/5.6 Previously risedronate x 2+ years. Last Prolia 05/15/2022. Last vitamin-D 04/17/2022 was 44. Continue prolia q6 month injections. Continue otc ca and vit d. Assessment & Plan (05/11/2022 10:20 AM CDT): DEXA 08/20/2020: Left femoral neck-2.1, left total hip:-1.1, right femoral neck: -2.0, right total hip:-1.1, FRAX 21/5.6 On risedronate x 2+ years. Last prolia 11/12/2020. Continue prolia q6 month injections. Continue otc ca and vit d. Recent vit d wnl. Scheduled for repeat prolia on 05/15. Assessment & Plan (02/02/2022 10:59 AM CDT): DEXA 08/20/2020: Left femoral neck-2.1, left total hip:-1.1, right femoral neck: -2.0, right total hip:-1.1, FRAX 21/5.6 On risedronate x 2+ years. Last prolia 11/12/2020. Continue prolia q6 month injections. Continue otc ca and vit d. Assessment & Plan (11/03/2021 9:49 AM ONCOLOGY NURSE): DEXA 08/20/2020: Left femoral neck-2.1, left total hip:-1.1, right femoral neck: -2.0, right total hip:-1.1, FRAX 21/5.6 On risedronate x 2+ years. Last vitamin-D 02/06/2021 was 37. Last prolia 04/22/2021. Continue prolia q6 month injections. Will recheck vit d. Continue otc ca and vit d. Assessment & Plan (10/06/2021 10:12 AM ONCOLOGY NURSE): DEXA 08/20/2020: Left femoral neck-2.1, left total hip:-1.1, right femoral neck: -2.0, right total hip:-1.1, FRAX 21/5.6 On risedronate x 2+ years. Last vitamin-D 02/06/2021 was 37. Last prolia 04/22/2021. Continue prolia q6 month injections. Will recheck vit d with labs in 4 weeks. Continue otc ca and vit d. Assessment & Plan (09/09/2021 12:22 P [id number]|2025-03-17 01:24:00|2025-03-17 01:24:00|XMS_ITS|KELVING DASHAHRAM|External Medical Summaries|[id number]|" Clinical Summary Created on: March 17, 2025 Jory Angeles : 1950 Sex: Female Author Organization [facility] Address [address] [place] [id number] Care Team Providers Care Sailing Instructor Name Role Phone Kash Damon MD Primary Care Provider [phone] Allergies Active Allergy Reactions Criticality Noted Date Comments Erythromycin Rash,Shortness of Breath High 5 Penicillins Rash,Shortness of Breath High 03/07/2015 Sulfacetamide Rash,Shortness of Breath High 03/07/20 15 Medications abatacept 250 MG injection Inject into the vein monthly. Active predniSONE 1 MG tablet Take 1 tablet (1 mg total) by mouth daily as needed. Active Calcium Citrate-Vitami n D (CALCIUM + D OR) Take 1 tablet by mouth daily. Active Biotin w/ Vitamins C & E (HAIR/SKIN/PARVIN LS OR) Take 1 tablet by mouth daily. Active Multiple Vitamin (MULTIVITAMIN ADULT OR) Take 1 tablet by mouth daily. Active Folic Acid (FOLATE OR) Take 800 mcg by mouth daily. Active denosumab 60 MG/ML injection Inject 1 mL (60 mg total) into the skin every 6 (six) months. Active metoprolol tartrate (LOPRESSOR) 25 MG tablet Take 1 tablet (25 mg total) by mouth 2 (two) times daily. 1/2 tablet BID 08/27/20 23 Active diclofenac sodium (VOLTAREN) 1 % gelIndications :Left wrist pain Apply 2 g topically 4 (four) times daily. 350 g 2 11/04/19 24 Active gabapentin (NEURONTIN) 300 MG capsuleIndicat ions:Neuropath y TAKE 1 CAPSULE 3 TIMES A DAY 270 capsule 1 08/28/20 24 Active dicyclomine (BENTYL) 20 MG tabletIndicati ons:Abdominal cramping TAKE 1 TABLET 3 TIMES DAILYAS NEEDED 270 tablet 3 02/02/20 25 Active hydroxychloroq uine 200 MG tablet Take 1.5 tablets (300 mg total) by mouth daily. 025 Discontinued(Pt . elected to discontinue med) nitrofurantoin , macrocrystal-m onohydrate, (MACROBID) 100 MG capsuleIndicat ions:Acute cystitis without hematuria Take 1 capsule (100 mg total) by mouth 2 (two) times daily for 7 days. 14 capsule 03/01/20 25 025 Discontinued nitrofurantoin , macrocrystal-m onohydrate, (MACROBID) 100 MG capsuleIndicat ions:Acute cystitis without hematuria Take 1 capsule (100 mg total) by mouth 2 (two) times daily for 7 days. 14 capsule 03/01/20 25 025 Active Problems Problem Noted Date Diagnosed Date Neuropathy 03/06/2025 Atrial tachycardia (HHS/HCC) 08/07/2021 PFO (patent foramen ovale) (HHS/HCC) 08/07/2021 Hypertension 08/07/2021 Elevated liver enzymes 12/26/2020 Overview (08/07/2021): Right upper quadrant ultrasound 01/03/2021: WNL Last Assessment & Plan: Right upper quadrant ultrasound 01/03/2021: WNL. Most recent LFTs back within normal limits. Labs 12/2020 displayed positive smooth muscle antibody 47, negative mitochondrial antibody. Labs 05/2021 revealed smooth muscle antibody 60 and mitochondrial antibody negative. Is scheduled to see hepatology in September. Chronic bilateral low back pain without sciatica 09/17/2020 Overview (08/07/2021): X-ray cervical spine 09/17/2020: Moderate degenerative endplate changes with disc space narrowing at C5-C6 and C6- C7. 2 mm posterior malalignment of C5 on C6 L-spine moderate scoliosis of the lower thoracic and upper lumbar convex to the right and [id number] scoliosis the med mid lumbar convex to the left moderate to advanced OA changes with disc space narrowing Last Assessment & Plan: Defers PT and/or pain management evaluation. Will obtain baseline imaging. Seropositive rheumatoid arthritis ([facility]/H [facility]) 07/23/2020 Overview (08/07/2021): Initial labs 07/23/2020: Negative QuantiFERON Avise 07/24/2020: Positive MELINA 1:160 speckled, positive rheumatoid factor IgM 80, but otherwise negative Left hand/wrist ultrasound 07/31/2020: Moderate/marked 2nd PIP and marked 3rd PIP synovial thickening with grade 1 power Doppler the 2nd PIP. Volar dips 2-5 have grade 2 power Doppler at the profundus tendons insertions. Fourth compartment effusion X-ray 07/23/2020: Chest x-ray: WNL Left hand: 1st MCP OA, 1st IP OA, mild 2nd PIP OA, scaphoid multi annular joint OA with subarticular sclerosis Right hand: Mild 1st MCP OA Left hip: WNL Left foot: Mild moderate 3rd PIP OA, mild 1st MTP OA with Rudy valgus Right foot: WNL 70 yoF with a history of seropositive RA and sjogren's syndrome prior seen by Dr. Aguila currently on hcq and prednisone 5 mg daily. Stopped arava due to alopecia, mtx due to alopecia/elevated lfts in the past. Persistent joint pain, stiffness in the khanh hands/wrists (mcp>remaining joints)(L>R), elbows>ankles. AM stiffness for 1- 2 hours. Synovitis present on exam. Ulnar deviation khanh hands. Appears consistent with RA. Will further evaluate with appropriate serologies, radiographs, L hand US. Depending on findings, consider additional treatment with humira, which was discussed with patient today. DEXA 08/20/2020: Left femoral neck-2.1, left total hip:-1.1, right femoral neck: -2.0, right total hip:-1.1, FRAX 21/5.6 Last Assessment & Plan: CDAI 6. Her peripheral joints continue to do very well at this time without significant complaints. Minimal swelling in the right hand on exam. Inflammatory arthritis does appear adequately controlled. Will continue Plaquenil 300 mg daily, Orencia IV infusions. Routine labs today. Follow-up 3 months. Sooner if needed. Seen with Dr. Jade. Given that LFTs have now normalized, could reconsider azathioprine in the future if symptoms worsen. Chest pressure 09/09/2015 Sjogren's syndrome (HHS/HCC) 03/17/2014 Overview (08/07/2021): SICCA SYNDROME Osteopenia 12/05/2013 Overview (08/07/2021): Osteopenia Last Assessment & Plan: DEXA 08/20/2020: Left femoral neck-2.1, left total hip:-1.1, right femoral neck: -2.0, right total hip:-1.1, FRAX 21/5.6 On risedronate x 2+ years. Last vitamin D 01/2021 was 37. Last prolia 04/22/2021. Continue prolia q6 month injections. Continue otc ca and vit d. Resolved Problems Problem Noted Date Diagnosed Date Resolved Date Transient cerebral ischemic attack 06/20/2015 02/16/2023 Encounters Date Type Department Care Team Description 03/10/2025 Scan HEALTH INFO SRVCS Scanned, [facility] Lab (SCAN) 03/01/2025 11:00 AM CDT Office Visit [facility] [address] [address] Kash Damon MD Follow Up; Osteopenia; Hypertension; Neuropathy (Patient has been hearing that gabapentin is bad for your); Imm/Inj (Patient is wondering if she needs an MMR vaccine); Lump (Patient noticed a lump on RT little finger, notice a couple of weeks ago. She has a hx of skin cancer removed from that finger with grafting. ); Mammogram (SCAN) (Patient is wondering if she needs to continue getting screening mammograms. ) 03/01/2025 Travel 02/22/2025 9:40 AM CDT Laboratory Only [facility] [address] [phone] Kash Damon MD 02/22/2025 Results Follow-Up [address] [address] Kash Damon MD URINALYSIS, COMPREHENSIVE METABOLIC PANEL, URIC ACID BLOOD, Additional followed-up results: 3 02/22/2025 Travel 02/21/2025 Telephone [facility] [address] [address] Kash Damon MD Lab Order 02/20/2025 Patient Outreach [facility] [address] [address] Kash Damon MD Pre-visit Gap Closure from Last 3 Months Immunizations Immunization Administration Dates Next Due Fluzone High Dose - >Age 65 (Prefilled Syringe) 11/02/2024(Deferred: Patient Refused),08/18/2023,08/10/2022,07/30/20 20 Influenza (Generic) 04/30/2015,07/31/2013 Influenza Adult (Generic) 08/10/2022,,08/26/2015,2014 MODERNA COVID-19 (12+) MRNA, LNP-S, PF, 100 MCG/ 0.5 ML DOSE 07/02/2021,01/20/2021,12/18/2020 Pneumococcal (Pneumovax 23) 08/10/2022 Pneumococcal (Prevnar 13) 08/31/2016 Shingrix 07/30/2020,05/21/2020 Tdap (Boostrix) 07/02/2022 Zoster (Zostavax) 73077 Unt/0.65Ml 09/04/2013 Family History Medical History Relation Comments Alzheimers Father Diabetes Father Epilepsy Mother Heart Disease Mother Hypertension Mother Relation Status Comments Father Mother Social History Tobacco Use Types Packs/Day Years Used Date Smoking Tobacco: Former Cigarettes 1 15 0 11/01/1992 - 11/01/2007 Smokeless Tobacco: Never Tobacco Cessation:Counseling Given: Yes Alcohol Use Standard Drinks/Week Comments Yes 1.7 (1 standard drink = 0.6 oz p ure alcohol) 1 glass of wine weekly PHQ-2 Answer Date Recorded Patient Health Questionnaire-2 Score 0 03/01/2025 Comments No Sex and Gender Information Value Date Recorded Sex Assigned at Female 03/01/2025 11:49 AM CDT Legal Sex Female 4:33 PM CDT Gender Identity Not on file Sexual Orientation Not on file Last Filed Vital Signs Vital Sign Reading Time Taken Comments Blood Pressure 120/76 03/01/2025 11:49 AM CDT Pulse 70 03/01/2025 11:49 AM CDT Temperature 36.5 C (97.7 F) 03/01/2025 11:49 AM CDT Respiratory Rate 16 03/01/2025 11:4 9 AM CDT Oxygen Saturation 97% 03/01/2025 11: 49 AM CDT Inhaled Oxygen Concentration - - Weight 53.4 kg (117 lb 11.2 oz) 025 11:49 AM CDT Height 162.6 cm (5' 4 ) 03/01/2025 11:4 9 AM CDT Body Mass Index 20.2 03/01/2025 11:49 AM CDT Plan of Treatment Upcoming Encounters Date Type Department Care Team (Late st Contact Info) Description 09/03/2025 10:20 AM ONCOLOGY NURSE Office Visit [facility] - [address] [phone] Kash Damon MD [address] [place] [id number] Health Maintenance Due Date Last Done Comments Annual Medicare Wellness Visit 2015 Colorectal Cancer Screening FIT-DNA (3 Years) 08/17/2025 08/17/2022, 08/17/2022 COVID-19 Vaccine (2023- 5 season) 2025 07/02/2021, 01/20/2021, 12/18/2020 Postponed from 07/02/2024 (Patient Refused) RSV Immunization or 60+ Years (1 - Risk 60-74 years 1-dose series) 08/24/2025 Postponed from 04/02 (Patient Refused) Mammogram Screening 05/02/2026 05/02/2024, 11/06/2022 DTaP, Tdap and Td Vaccines ( 2 - Td or Tdap) 07/02/2032 07/02/2022 Zoster Vaccines Completed 07/30/2020, 05/21/2020, 09/04/2013 Pneumococcal Vaccine: 50+ Years Completed 08/10/2022, 08/31/2016 Dexa Scan (General) Completed 11/06/2022 Hepatitis C Completed 12/09/2022 PHQ-2 (Physician [facility]arrow) Completed 03/01/2025 Meningococcal B Vaccine Aged Out No l onger eligible based on patient's age to complete this topic Meningococcal Vaccine Aged Out No joanne gunnar eligible based on patient's age to complete this topic RSV Immunizations Under 20 Months Aged Out No longer eligible b ased on patient's age to complete this topic Medical Devices Implanted Type [employer] Device Identifier Shelf Expiration Date Model / Serial / Lot Iol Leticia Precision [id number] - [id number] Implanted:Qty: 1 on 02/23/2022 by Navi Brooks MD at [facility] Lens Left: Eye [employer] 08/06/2024 Z00 / [id number] / Procedures Procedure Name Priority Date/Time Associated Diagnosis Comments OUTSIDE LAB (SCAN ORDER) 03/10/2025 OUTSIDE LAB (SCAN ORDER) 03/10/2025 COLLECTION VENOUS BLOOD VENIPUNCTURE Routine 02/22/2025 9:41 AM CDT Annual physical exam Primary hypertension CBC W/DIFF AUTOMATED Routine 02/22/2025 9:41 AM CDT Annual physical exam Primary hypertension LIPID PANEL Routine 02/22/2025 9:41 AM CDT Annual physical exam Primary hypertension TSH W/REFLEX Routine 02/22/2025 9:41 AM CDT Annual physical exam Primary hypertension URIC ACID BLOOD Routine 02/22/2025 9:41 AM CDT Annual physical exam Primary hypertension COMPREHENSIVE METABOLIC PANEL Routine 02/22/2025 9:41 AM CDT Annual physical exam Primary hypertension URINALYSIS, AUTO, COMPLETE Routine 02/22/2025 9:41 AM CDT Annual physical exam Primary hypertension MAMMOGRAM GENERIC (SCAN ORDER) 05/02/2024 HEPATITIS C ANTIBODY W/RFX TO HCV RNA Routine 12/09/2022 1:22 PM ONCOLOGY NURSE Encounter for hepatitis C screening test for low risk patient BONE DENSITY/DEXA Routine 11/06/2022 12: 00 AM ONCOLOGY NURSE Osteopenia of multiple sites COLOGUARD (EXACT SCIENCE) Routine 08/17/2022 8:10 AM CDT Screening for colon cancer from Last 3 Months or Most Recently Relevant to Health Maintenance Results * OUTSIDE LAB (SCAN ORDER) (03/10/2025) Only the most recent of2 resultswithin the time period is included. 03/10/2025 us [facility] Scanned SCANNING Final Resu lt * TSH W/REFLEX (02/22/2025 9:41 AM CDT) TSH 1.541 0.358 - 3.740 uIU/ML 02/22/2025 2:59 PM CDT [facility] 02/22/2025 9:41 AM CDT Kash Damon MD LABORATORY Final Result [facility] [address] [place] [address], [place] [phone] * (ABNORMAL) URINALYSIS (02/22/2025 9:41 AM CDT) Pathologist [facility] COLOR (U) YELLOW 02/22/2025 2:39 PM CDT [facility] TRANSPARENCY HAZY(A) CLEAR 02/22/2025 2:39 PM CDT [facility] SPECIFIC GRAVITY (U) 1.010 1.003 - 1.040 02/22/2025 2:39 PM CDT [facility] U PH 6.0 5.0 - 9.0 02/22/2025 2:39 PM CDT [facility] PROTEIN RANDOM (U) NEGATIVE NEGATIVE 02/22/2025 2:39 PM CDT [facility] GLUCOSE (U) NEGATIVE NEGATIVE 02/22/2025 2:39 PM CDT [facility] KETONES MG/DL (U) NEGATIVE NEGATIVE 02/22/2025 2:39 PM CDT [facility] BILIRUBIN (U) NEGATIVE NEGATIVE 02/22/2025 2:39 PM CDT [facility] BLOOD (U) NEGATIVE NEGATIVE 02/22/2025 2:39 PM CDT [facility] UROBILINOGEN 0.2 0.0 - 2.0 EU/DL 02/22/2025 2:39 PM CDT [facility] NITRITES NEGATIVE NEGATIVE 02/22/2025 2:39 PM CDT [facility] LEUKOCYTES (U) TRACE(A) NEGATIVE 02/22/2025 2:39 PM CDT [facility] RBC/HPF 0-3 0 - 3 /HPF 02/22/2025 2:39 PM CDT [facility] WBC/HPF 4-9(A) 0 - 3 /HPF 02/22/2025 2:39 PM CDT [facility] EPI/HPF 0-3 /HPF 02/22/2025 2:39 PM CDT [facility] BACTERIA (U) 3+(A) NONE SEEN 02/22/2025 2:39 PM CDT [facility] MUCUS FEW 02/22/2025 2:39 PM CDT [facility] AMORPHOUS SEDIMENT PRESENT 02/22/2025 2:39 PM CDT [facility] COMMENT (U) WBC CLUMPS PRESENT 02/22/2025 2:40 PM CDT [facility] URINE SPECIMEN OBTAINED BY CLEAN CATCH PROCEDURE / Unknown 02/22/2025 9:41 AM CDT Kash Damon MD URINE ORDERABLES Final Result [facility] [address] [place] [address], * (ABNORMAL) COMPREHENSIVE METABOLIC PANEL (02/22/2025 9:41 AM CDT) SODIUM S/P/B 143 136 - 145 MMOL/L 02/22/2025 2:59 PM CDT [facility] POTASSIUM S/P/B 4.7 3.5 - 5.1 MMOL/L 02/22/2025 2:59 PM CDT [facility] CHLORIDE S/P/B 107 98 - 107 MMOL/L 02/22/2025 2:59 PM CDT [facility] CO2 29.2 21 - 32 MMOL/L 02/22/2025 3:01 PM T [facility] GLUCOSE 89 70 - 99 MG/DL 02/22/2025 2:59 PM T [facility] BUN 13 7 - 18 MG/DL 02/22/2025 2:59 PM [facility] CREATININE S/P/B 0.96 0.55 - 1.02 MG/DL 02/22/2025 2:59 PM [facility] CALCIUM S/P/B 9.4 8.4 - 10.5 MG/DL 02/22/2025 2:59 PM [facility] BILIRUBIN TOTAL S/P/B 0.5 0.2 - 1.0 MG/DL 02/22/2025 2:59 PM T [facility] ALKALINE PHOSPHATASE S/P/B 56 55 - 142 U/L 02/22/2025 2:59 PM [facility] AST 20 15 - 37 U/L 02/22/2025 2:59 PM T [facility] ALT 20 14 - 59 U/L 02/22/2025 2:59 PM CD[facility] TOTAL PROTEIN S/P/B 6.6 6.4 - 8.2 G/DL 02/22/2025 2:59 PM T [facility] ALBUMIN S/P/B 3.7 3.4 - 5.0 G/DL 02/22/2025 2:59 PM T [facility] ANION GAP 6.8 5 - 15 MMOL/L 02/22/2025 3:01 PM T [facility] Comment:REFERENCE RANGE NOT ESTABLISHED OSMOLALITY (CALC) 296 MOSM/KG 025 2:59 PM [facility] Comment:REFERENCE RANGE NOT ESTABLISHED GFR ESTIMATE 62(L) >90 ML/MIN/1. 73 M2 02/22/2025 2:59 PM CDT [facility] GFR NOTES GFR REFERENCE S: 02/22/2025 2:59 PM CDT [facility] Comment: THE ESTIMATED GFR IS CALCULATED USING THE 2020 CKD-EPI EQUATION. THE FOLLOWING CATEGORIES FOR GRADING RENAL FUNCTION ARE RECOMMENDED BY THE INTERNATIONAL SOCIETY OF NEPHROLOGY (KDIGO 2012 CLINICAL PRACTICE GUIDELINE). G1,NORMAL OR HIGH: >89 ml/min/1.73 m2 G2,MILDLY DECREASED: 60-89 ml/min/1.73 m2 G3A,MILDLY TO MODERATELY DECREASED: 45-59 ml/min/1.73 m2 G3B,MODERATELY TO SEVERELY DECREASED: 30-44 ml/min/1.73 m2 G4,SEVERELY DECREASED: 15-29 ml/min/1.73 m2 G5,KIDNEY FAILURE: <15 ml/min/1.73 m2 02/22/2025 9:41 AM CDT Kash Damon MD LABORATORY Final Result [facility] [address] [place] [address], * (ABNORMAL) LIPID PANEL (02/22/2025 9:41 AM CDT) CHOLESTEROL 205(H) <200 MG/DL 02/22/2025 2:59 PM CDT [facility] TRIGLYCERIDES 90 <150 MG/DL 02/22/2025 2:59 PM CDT [facility] HDL 83 >40 MG/DL 02/22/2025 2:59 PM CDT [facility] LDL-C 104(H) <100 MG/DL 02/22/2025 2:59 PM CDT [facility] VLDL CALCULATION 18 5 - 28 MG/DL 02/22/2025 2:59 PM CDT [facility] CHOL/HDL RATIO 2.5 0.0 - 4.0 02/22/2025 2:59 PM CDT [facility] LDL/HDL 1.3 0.41 - 2.13 02/22/2025 2:59 PM CDT [facility] NON HDL CHOLESTEROL 122 <140 MG/DL 02/22/2025 2:59 PM CDT [facility] 02/22/2025 9:41 AM CDT Kash Damon MD LABORATORY Final Result [facility] [address] [place] [address], * (ABNORMAL) CBC W/DIFF AUTOMATED (02/22/2025 9:41 AM CDT) WBC 5.06 4.00 - 10.80 x10'3/uL 02/22/2025 2:31 PM CDT [facility] RBC 4.49 4.10 - 5.40 x10'6/uL 02/22/2025 2:31 PM CDT [facility] HGB 14.1 12.0 - 16.0 G/DL 02/22/2025 2:31 PM CDT [facility] HCT 43.3 36.0 - 47.0 % 02/22/2025 2:31 PM CDT [facility] MCV 96.4 78.0 - 100.0 FL 02/22/2025 2:31 PM CDT [facility] MCH 31.4(H) 27.0 - 31.0 PG 02/22/2025 2:31 PM CDT [facility] MCHC 32.6(L) 33.0 - 36.0 G/DL 02/22/2025 2:31 PM T [facility] RDW 13.2 11.5 - 14.5 % 02/22/2025 2:31 PM CDT [facility] PLT 154 150 - 350 x10'3/uL 02/22/2025 2:31 PM CDT [facility] MPV 10.2 7.4 - 10.4 FL 02/22/2025 2:31 PM CDT [facility] DIFFERENTIAL TYPE AUTOMATED DIFFERENTIAL 02/22/2025 2:31 PM CDT [facility] NEUTROPHILS % 62.8 % 02/22/2025 2:31 PM CDT [facility] LYMPHOCYTES % 25.7 % 02/22/2025 2:31 PM CDT [facility] MONOCYTES % 7.1 % 02/22/2025 2:31 PM CDT [facility] EOSINOPHILS % 3.8 % 02/22/2025 2:31 PM CDT [facility] BASOPHILS % 0.6 % 02/22/2025 2:31 PM CDT [facility] IMMATURE GRANS % 0.0 % 02/22/2025 2:31 PM CDT [facility] ABS. NEUTROPHILS 3.18 1.60 - 8.30 x10'3/uL 02/22/2025 2:31 PM CDT [facility] ABS. LYMPHOCYTES 1.30 0.80 - 4.70 x10'3/uL 02/22/2025 2:31 PM CDT [facility] ABS. MONOCYTES 0.36 0.00 - 1.50 x10'3/uL 02/22/2025 2:31 PM CDT [facility] ABS. EOSINOPHILS 0.19 0.00 - 0.40 x10'3/uL 02/22/2025 2:31 PM CDT [facility] ABS. BASOPHILS 0.03 0.00 - 0.20 x10'3/uL 02/22/2025 2:31 PM CDT [facility] ABS. IMMATURE GRANULOCYTES 0.00 0.00 - 0.03 x10'3/uL 02/22/2025 2:31 PM CDT [facility] 02/22/2025 9:41 AM CDT us Kash Damon MD LABORATORY Final Result Performing Organization Address [facility] Co de Phone Number [facility] [address] [place] [address], * URIC ACID BLOOD (02/22/2025 9:41 AM CDT) Pathologist [facility] URIC ACID 3.2 2.6 - 6.0 MG/DL 02/22/2025 2:44 PM CDT [facility] 02/22/2025 9:41 AM CDT us Kash Damon MD LABORATORY Final Result Performing Organization Address [facility] Co de Phone Number [place] [address] [place] [address], * MAMMOGRAM GENERIC (SCAN ORDER) (05/02/2024) Anatomical Region Laterality Modality Other 05/02/2024 [facility] Scanned SCANNING Final Resu lt * HEPATITIS C ANTIBODY W/RFX TO HCV RNA ([facility] ONLY) (12/09/2022 1:22 PM ONCOLOGY NURSE) Pathologist [facility] HEPATITIS C AB NON-REACT DOLLY NON-REACT DOLLY [facility] SIGNAL TO CUTOFF 0.09 <1.00 [facility] Comment: HCV antibody was non-reactive. There is no laboratory evidence of HCV infection. In most cases, no further action is required. However, if recent HCV exposure is suspected, a test for HCV RNA (test code 63018) is suggested. For additional information please refer to http://education.Decisionlink/faq/RFH68z2 (This link is being provided for informational/ educational purposes only.) 12/09/2022 1:22 PM ONCOLOGY NURSE 12/10/2022 12:46 AM ONCOLOGY NURSE Narrative Resulting Agency Comment Performing Organization Information: Site ID: [id number] Name: Adriana Saini Address: [id number] [address] Director: Rojas Cortes MD Sonya Strange NP LABORATORY Final Re sult [facility] [address] [address], * BONE DENSITY/DEXA (11/06/2022 12:00 AM ONCOLOGY NURSE) Anatomical Region Laterality Modality Bone Bone Density 11/06/2022 Sonya Strange NP DEXA Final Re sult * COLOGUARD (EXACT SCIENCE) (08/17/2022 8:10 AM CDT) COLOGUARD RESULT Negative Negative [employer] (CLIA #:[id number]) Comment: NEGATIVE TEST RESULT. A negative Cologuard result indicates a low likelihood that a colorectal cancer (CRC) or advanced adenoma (adenomatous polyps with more advanced pre-malignant features) is present. The chance that a person with a negative Cologuard test has a colorectal cancer is less than 1 in 1500 (negative predictive value >99.9%) or has an advanced adenoma is less than 5.3% (negative predictive value 94.7%). These data are based on a prospective cross-sectional study of 10,000 individuals at average risk for colorectal cancer who were screened with both Cologuard and colonoscopy. (Balwinder Leonard al, N Engl J Med 2014;370(14):0347-4408) The normal value (reference range) for this assay is negative. COLOGUARD RE-SCREENING RECOMMENDATION: Periodic colorectal cancer screening is an important part of preventive healthcare for asymptomatic individuals at average risk for colorectal cancer. Following a negative Cologuard result, the [place] [employer] Society and .S. Multi-Society Task Force screening guidelines recommend a Cologuard re-screening interval of 3 years. References: [place] [employer] Guideline for Colorectal Cancer Screening: https://www.cancer.org/cancer/qlpyn-kzcfym-hkruvy/najxlwyai-xpmrluqyf-waardjn/ac s-rec ommendations.html.; Dayo DK, Calvin CR, Mary RamseyK, Colorectal Cancer Screening: Recommendations for Physicians and Patients from the U.S. Multi-Society Task Force on Colorectal Cancer Screening , Am J Gastroenterology 2017; 112:7659-3870. TEST DESCRIPTION: Composite algorithmic analysis of stool DNA-biomarkers with hemoglobin immunoassay. Quantitative values of individual biomarkers are not reportable and are not associated with individual biomarker result reference ranges. Cologuard is intended for colorectal cancer screening of adults of either sex, 45 years or older, who are at average-risk for colorectal cancer (CRC). Cologuard has been approved for use by the U.S. FDA. The performance of Cologuard was established in a cross sectional study of average-risk adults aged 50-84. Cologuard performance in patients ages 45 to 49 years was estimated by sub-group analysis of near-age groups. Colonoscopies performed for a positive result may find as the most clinically significant lesion: colorectal cancer [4.0%], advanced adenoma (including sessile serrated polyps greater than or equal to 1cm diameter) [20%] or non- advanced adenoma [31%]; or no colorectal neoplasia [45%]. These estimates are derived from a prospective cross-sectional screening study of 10,000 individuals at average risk for colorectal cancer who were screened with both Cologuard and colonoscopy. (Balwinder Leonard al, N Engl J Med 2014;370(14):8553-6038.) Cologuard may produce a false negative or false positive result (no colorectal cancer or precancerous polyp present at colonoscopy follow up). A negative Cologuard test result does not guarantee the absence of CRC or advanced adenoma (pre-cancer). The current Cologuard screening interval is every 3 years. ([place] [employer] Society and U.S. Multi-Society Task Force). Cologuard performance data in a 10,000 patient pivotal study using colonoscopy as the reference method can be accessed at the following location: www.Dympol.VISEO/results. Additional description of the Cologuard test process, warnings and precautions can be found at www.[email or web address].VISEO.
--- OUTSIDE RECORDS SUMMARY | 2025-03-16 23:02 | XMS_ITS | Clinical Summary ---
Author Organization [facility] Address [facility] [place] [address] Care Team Providers Care Collarette Separator Name Role Phone Kash Damon MD Primary Care Provider [phone] Allergies Active Allergy Reactions Criticality Noted Date [...] TIMES DAILYAS NEEDED 270 tablet 3 02/02/20 Active hydroxychloroq uine 200 MG tablet Take [...] upper lumbar convex to the right and ebdl-go-djoetpul scoliosis the med mid lumbar convex to the left moderate to advanced OA changes with disc space narrowing Last Assessment & Plan: Defers PT and/or pain management evaluation. Will obtain baseline imaging. Seropositive rheumatoid arthritis ([facility] HHS/H CC) 07/23/2020 Overview (08/07/2021): Initial [...] (SCAN) 03/01/2025 11:00 AM CDT Office Visit [facility] Family & Internal Medicine [address] [address] Kash Damon MD Follow Up; Osteopenia; Hypertension; [...] Travel 02/22/2025 9:40 AM CDT Laboratory Only [facility] Internal [address] [address] Kash Damon MD 02/22/2025 Results Follow-Up [address] [address] Kash Damon MD URINALYSIS, COMPREHENSIVE METABOLIC PANEL, URIC ACID BLOOD, Additional followed-up results: 3 02/22/2025 Travel 02/21/2025 Telephone [facility] [address] [address] Kash Damon MD Lab Order 02/20/2025 Patient Outreach [address] [address] Kash Damon MD Pre-visit Gap Closure from Last 3 Months Immunizations Immunization Administration Dates Next Due Fluzone High Dose - >Age 65 (Prefilled Syringe) 11/02/2024(Deferred: Patient Refused),08/18/2023,08/10/2022,07/30/20 20 Influenza (Generic) 04/30/2015,07/31/2013 Influenza Adult (Generic) 08/10/2022,,08/26/2015,2014 MODERNA COVID-19 (12+) MRNA, LNP-S, PF, 100 MCG/ 0.5 ML DOSE 07/02/2021,01/20/2021,12/18/2020 Pneumococcal (Pneumovax 23) 08/10/2022 Pneumococcal (Prevnar 13) 08/31/2016 Shingrix 07/30/2020,05/21/2020 Tdap (Boostrix) 07/02/2022 Zoster (Zostavax) 34251 Unt/0.65Ml 09/04/2013 Family History Medical History Relation [...] st Contact Info) Description 09/03/2025 10:20 AM SCREEN WRITER Office Visit [facility] Family & Internal Medicine - [address] [address] Kash Damon MD [address] [place] [address] Health Maintenance Due Date Last Done Comments Annual Medicare Wellness Visit 2015 Colorectal Cancer Screening FIT-DNA (3 Years) 08/17/2025 08/17/2022, 08/17/2022 COVID-19 Vaccine (2023-2 5 season) 2025 07/02/2021, 01/20/2021, 12/18/2020 Postponed [...] 11/06/2022 Hepatitis C Completed 12/09/2022 PHQ-2 (Physician [place]) Completed 03/01/2025 Meningococcal B Vaccine Aged Out No l onger eligible based on patient's age to complete this topic Meningococcal Vaccine Aged Out No joanne gunnar eligible based on patient's age to complete this topic RSV Immunizations Under 20 Months Aged Out No longer eligible b ased on patient's age to complete this topic Medical Devices Implanted Type Area Eligibility Consultant Device Identifier Shelf Expiration Date Model / Serial / Lot Iol [place] [employer] [id number] - [id number] Implanted:Qty: 1 on 02/23/2022 by Navi Brooks MD at [facility] Lens Left: Eye [employer] 08/06/2024 [id number] / [id number] / Procedures Procedure Name Priority Date/Time Associated [...] TO HCV RNA Routine 12/09/2022 1:22 PM SCREEN WRITER Encounter for hepatitis C screening test for low risk patient BONE DENSITY/DEXA Routine 11/06/2022 12: 00 AM SCREEN WRITER Osteopenia of multiple sites COLOGUARD (EXACT SCIENCE) [...] - 3.740 uIU/ML 02/22/2025 2:59 PM CDT [facility] 02/22/2025 9:41 AM CDT Kash Damon MD LABORATORY Final Result [facility] [address] [place] [address], * (ABNORMAL) URINALYSIS (02/22/2025 9:41 AM CDT) COLOR (U) YELLOW 02/22/2025 2:39 PM CDT [facility] TRANSPARENCY HAZY(A) CLEAR 02/22/2025 2:39 PM CDT -[facility] SPECIFIC GRAVITY (U) 1.010 1.003 - 1.040 02/22/2025 2:39 PM CDT -[facility] U PH 6.0 5.0 - 9.0 02/22/2025 2:39 PM CDT [facility] PROTEIN RANDOM (U) NEGATIVE NEGATIVE 02/22/2025 2:39 PM CDT [facility] GLUCOSE (U) NEGATIVE NEGATIVE 02/22/2025 2:39 PM CDT [facility] KETONES MG/DL (U) NEGATIVE NEGATIVE 02/22/2025 2:39 PM CDT [facility] BILIRUBIN (U) NEGATIVE NEGATIVE 02/22/2025 2:39 PM T [facility] BLOOD (U) NEGATIVE NEGATIVE 02/22/2025 2:39 PM CDT [facility] UROBILINOGEN 0.2 0.0 - 2.0 EU/DL 02/22/2025 2:39 PM CDT [facility] NITRITES NEGATIVE NEGATIVE 02/22/2025 2:39 PM CDT [facility] LEUKOCYTES (U) TRACE(A) NEGATIVE 02/22/2025 2:39 PM CDT [facility] RBC/HPF 0-3 0 - 3 /HPF 02/22/2025 2:39 PM CDT [facility] WBC/HPF 4-9(A) 0 - 3 /HPF 02/22/2025 2:39 PM CDT [facility] EPI/HPF 0-3 /HPF 02/22/2025 2:39 PM CDT [facility] BACTERIA (U) 3+(A) NONE SEEN 02/22/2025 2:39 PM CDT [facility] MUCUS FEW 02/22/2025 2:39 PM CDT [facility] AMORPHOUS SEDIMENT PRESENT 02/22/2025 2:39 PM CDT [facility] COMMENT (U) WBC CLUMPS PRESENT 02/22/2025 2:40 PM CDT [facility] URINE SPECIMEN OBTAINED BY CLEAN CATCH PROCEDURE / Unknown 02/22/2025 9:41 AM CDT Kash Damon MD URINE ORDERABLES Final Result [facility] [address] [place] [address], [place] [phone] * (ABNORMAL) COMPREHENSIVE METABOLIC PANEL (02/22/2025 9:41 AM CDT) SODIUM S/P/B 143 136 - 145 MMOL/L 02/22/2025 2:59 PM CDT [facility] POTASSIUM S/P/B 4.7 3.5 - 5.1 MMOL/L 02/22/2025 2:59 PM CDT [facility] CHLORIDE S/P/B 107 98 - 107 MMOL/L 02/22/2025 2:59 PM CDT [facility] CO2 29.2 21 - 32 MMOL/L 02/22/2025 3:01 PM CDT [facility] GLUCOSE 89 70 - 99 MG/DL 02/22/2025 2:59 PM CDT [facility] BUN 13 7 - 18 MG/DL 02/22/2025 2:59 PM CDT [facility] CREATININE S/P/B 0.96 0.55 - 1.02 MG/DL 02/22/2025 2:59 PM CDT [facility] CALCIUM S/P/B 9.4 8.4 - 10.5 MG/DL 02/22/2025 2:59 PM CDT [facility] BILIRUBIN TOTAL S/P/B 0.5 0.2 - 1.0 MG/DL 02/22/2025 2:59 PM CDT [facility] ALKALINE PHOSPHATASE S/P/B 56 55 - 142 U/L 02/22/2025 2:59 PM CDT [facility] AST 20 15 - 37 U/L 02/22/2025 2:59 PM CDT [facility] ALT 20 14 - 59 U/L 02/22/2025 2:59 PM CDT [facility] TOTAL PROTEIN S/P/B 6.6 6.4 - 8.2 G/DL 02/22/2025 2:59 PM CDT [facility] ALBUMIN S/P/B 3.7 3.4 - 5.0 G/DL 02/22/2025 2:59 PM CDT [facility] ANION GAP 6.8 5 - 15 MMOL/L 02/22/2025 3:01 PM CDT [facility] Comment:REFERENCE RANGE NOT ESTABLISHED OSMOLALITY (CALC) 296 MOSM/KG 025 2:59 PM CDT [facility] Comment:REFERENCE RANGE NOT ESTABLISHED GFR ESTIMATE 62(L) >90 ML/MIN/1. 73 M2 02/22/2025 2:59 PM CDT [facility] GFR NOTES GFR REFERENCE S: 02/22/2025 2:59 PM T [facility] Comment: THE ESTIMATED GFR IS CALCULATED USING [...] CDT Kash Damon MD LABORATORY Final Result [facility] [address] [place] [address], * (ABNORMAL) LIPID PANEL (02/22/2025 9:41 AM CDT) CHOLESTEROL 205(H) <200 MG/DL 02/22/2025 2:59 PM CDT [facility] TRIGLYCERIDES 90 <150 MG/DL 02/22/2025 2:59 PM CDT [facility] HDL 83 >40 MG/DL 02/22/2025 2:59 PM CDT [facility] LDL-C 104(H) <100 MG/DL 02/22/2025 2:59 PM CDT [facility] VLDL CALCULATION 18 5 - 28 MG/DL 02/22/2025 2:59 PM CDT [facility] CHOL/HDL RATIO 2.5 0.0 - 4.0 02/22/2025 2:59 PM CDT [facility] LDL/HDL 1.3 0.41 - 2.13 02/22/2025 2:59 PM CDT [facility] NON HDL CHOLESTEROL 122 <140 MG/DL 02/22/2025 2:59 PM CDT [facility] 02/22/2025 9:41 AM CDT Kash Damon MD LABORATORY Final Result [facility] [address] [address], * (ABNORMAL) CBC W/DIFF AUTOMATED (02/22/2025 9:41 AM CDT) WBC 5.06 4.00 - 10.80 x10'3/uL 02/22/2025 2:31 PM CDT [facility] RBC 4.49 4.10 - 5.40 x10'6/uL 02/22/2025 2:31 PM CDT [facility] HGB 14.1 12.0 - 16.0 G/DL 02/22/2025 2:31 PM CDT [facility] HCT 43.3 36.0 - 47.0 % 02/22/2025 2:31 PM CDT [facility] MCV 96.4 78.0 - 100.0 FL 02/22/2025 2:31 PM CDT [facility] MCH 31.4(H) 27.0 - 31.0 PG 02/22/2025 2:31 PM CDT [facility] MCHC 32.6(L) 33.0 - 36.0 G/DL 02/22/2025 2:31 PM CDT [facility] RDW 13.2 11.5 - 14.5 % 02/22/2025 2:31 PM CDT [facility] PLT 154 150 - 350 x10'3/uL 02/22/2025 2:31 PM CDT [facility] MPV 10.2 7.4 - 10.4 FL 02/22/2025 2:31 PM CDT [facility] DIFFERENTIAL TYPE AUTOMATED DIFFERENTIAL 02/22/2025 2:31 PM CDT [facility] NEUTROPHILS % 62.8 % 02/22/2025 2:31 PM CDT [facility] LYMPHOCYTES % 25.7 % 02/22/2025 2:31 PM CDT [facility] MONOCYTES % 7.1 % 02/22/2025 2:31 PM CDT [facility] EOSINOPHILS % 3.8 % 02/22/2025 2:31 PM CDT [facility] BASOPHILS % 0.6 % 02/22/2025 2:31 PM CDT [facility] IMMATURE GRANS % 0.0 % 02/22/2025 2:31 PM CDT [facility] ABS. NEUTROPHILS 3.18 1.60 - 8.30 x10'3/uL 02/22/2025 2:31 PM CDT [facility] ABS. LYMPHOCYTES 1.30 0.80 - 4.70 x10'3/uL 02/22/2025 2:31 PM CDT [facility] ABS. MONOCYTES 0.36 0.00 - 1.50 x10'3/uL 02/22/2025 2:31 PM CDT [facility] ABS. EOSINOPHILS 0.19 0.00 - 0.40 x10'3/uL 02/22/2025 2:31 PM CDT [facility] ABS. BASOPHILS 0.03 0.00 - 0.20 x10'3/uL 02/22/2025 2:31 PM CDT [facility] ABS. IMMATURE GRANULOCYTES 0.00 0.00 - 0.03 x10'3/uL 02/22/2025 2:31 PM CDT [facility] 02/22/2025 9:41 AM CDT us Kash Damon MD LABORATORY Final Result Performing Organization Address City/[facility] de Phone Number [facility] [address] [place] [address], * URIC ACID BLOOD (02/22/2025 9:41 AM CDT) URIC ACID 3.2 2.6 - 6.0 MG/DL 02/22/2025 2:44 PM CDT [facility] 02/22/2025 9:41 AM CDT us Kash Damon MD LABORATORY Final Result -[facility] [address] [facility] [place] [address], * MAMMOGRAM GENERIC (SCAN ORDER) (05/02/2024) Anatomical Region Laterality Modality Other 05/02/2024 [facility] Scanned SCANNING Final Resu lt * HEPATITIS C ANTIBODY W/RFX TO HCV RNA ([facility] ONLY) (12/09/2022 1:22 PM SCREEN WRITER) HEPATITIS C AB NON-REACT DOLLY NON-REACT DOLLY [employer] [facility] SIGNAL TO CUTOFF 0.09 <1.00 [employer] [facility] Comment: HCV antibody was non-reactive. There is no laboratory evidence of HCV infection. In most cases, no further action is required. However, if recent HCV exposure is suspected, a test for HCV RNA (test code 49223) is suggested. For additional information please refer to http://education.[employer]/faq/KQD15t4 (This link is being provided for informational/ educational purposes only.) 12/09/2022 1:22 PM SCREEN WRITER 12/10/2022 12:46 AM SCREEN WRITER Narrative Resulting Agency Comment Performing Organization Information: Site ID: [place] Name: [facility] Address: [address] [place] [address] Director: Rojas Cortes MD Sonya Strange NP LABORATORY Final Re sult [employer] - AFSANEH TAY [employer] [facility] [address] [place] [address], * BONE DENSITY/DEXA (11/06/2022 12:00 AM SCREEN WRITER) Anatomical Region Laterality Modality Bone Bone Density 11/06/2022 Sonya M Leitschuh FERMENTATION SCIENTIST DEXA Final Re sult * COLOGUARD (EXACT SCIENCE) (08/17/2022 8:10 AM CDT) COLOGUARD RESULT Negative Negative [facility] [employer] (CLIA #:[id number]) Comment: NEGATIVE TEST RESULT. A negative Cologuard [...] screened with both Cologuard and colonoscopy. (Balwinder Foss et al, N Engl J Med 2014;370(14):2311-7113) The normal value (reference range) for this assay is negative. COLOGUARD RE-SCREENING RECOMMENDATION: Periodic colorectal cancer screening is an important part of preventive healthcare for asymptomatic individuals at average risk for colorectal cancer. Following a negative Cologuard result, the [place] Cancer Society and U.S. Multi-Society Task Force screening guidelines recommend a Cologuard re-screening interval of 3 years. References: [place] [employer] Guideline for Colorectal Cancer Screening: https://www.cancer.org/cancer/kenmz-zeihkq-evdawc/uitebijly-ojmykkckx-wkwxlbb/ac s-rec ommendations.html.; Dayo RILEY, Calvin JONES, Mary RamseyK, Colorectal Cancer Screening: Recommendations for Physicians and Patients from the U.S. Multi-Society Task Force on Colorectal Cancer Screening , Am J Gastroenterology 2017; 112:5490-0991. TEST DESCRIPTION: Composite algorithmic analysis of stool [...] screened with both Cologuard and colonoscopy. (Balwinder Schmidt. et al, N Engl J Med 2014;370(14):6544-0261.) Cologuard may produce a false negative or false positive result (no colorectal cancer or precancerous polyp present at colonoscopy follow up). A negative Cologuard test result does not guarantee the absence of CRC or advanced adenoma (pre-cancer). The current Cologuard screening interval is every 3 years. ([place] [employer] Society and U.S. Multi-Society Task Force). Cologuard performance data in a 10,000 patient pivotal study using colonoscopy as the reference method can be accessed at the following location: www.[employer] [employer]/results. Additional description of the Cologuard test process, warnings and precautions can be found at www.cologuard.com. [id number]|2025-03-16 23:02:00|2025-03-16 23:01:00|XMS_ITS|BKG DAEMON|External Medical Summaries|[id number]|" Clinical Summary Created on: March 16, 2025 Jory Angeles : 1950 Sex: Female Author Organization [facility] Address [address] [place] [address] [place] [address] Care Team Providers Care Collarette Separator Name Role Phone Ted Morataya MD Primary Care Provider [phone] Source Comments [facility],non-owned Affiliates and Associated Physician Practices is [facility] [facility] organization consisting of ambulatory clinics and hospital sitesin [place], [place], [place] and [place]. This disclosure is being madepursuant to the Care Everywhere program and may not contain all information available regarding this patient. Last updated 18.[facility] Social History Tobacco Use Types Packs/Day Years Used Date Smoking Tobacco: Never Assessed Comments Unknown Sex and Gender Information Value Date Recorded Sex Assigned at Not on file Legal Sex Female 6:30 AM SCREEN WRITER Gender Identity Not on file Sexual Orientation Not on file Plan of Treatment Health Maintenance Due Date Last Done Comments BONE DENSITY TESTING 1950 COLOGUARD (AGES 45-75) - COL ON CA SCREENING 1950 COLON MONITORING 1950 COLONOSCOPY - COLON CA SCREENING 1950 CT COLONOGRAPHY - COLON CA SCREENING 1950 Colorectal Cancer Screening 1950 FIT - COLON CA SCREENING 1950 FLEX SIG - COLON CA SCREENING 1950 LIPID TESTING 1950 MAMMOGRAM 1950 HEPATITIS C SCREENING 04/24/1968 DTAP/TDAP/TD VACCINES (1 - Tdap) 1969 PNEUMOCOCCAL VACCINE 50+ (1 of 1 - PCV) 2000 ZOSTER VACCINE (1 of 2) 2000 COVID-19 VACCINE ( - 2023-2 5 season) 2024 DEPRESSION SCREENING 11/01/2024 Respiratory Syncytial Virus (RSV) Vaccine Pt: or over 60 yrs (1 - 1-dose 75+ series) 2025 INFLUENZA VACCINE (Season Ended) 2025 HEPATITIS B VACCINE Aged Out No longe r eligible based on patient's age to complete this topic HIB VACCINE Aged Out No longer eligi ble based on patient's age to complete this topic HPV VACCINE Aged Out No longer eligi ble based on patient's age to complete this topic MENINGOCOCCAL (Group B) VACC INE SHARED DECISION-MAKING Aged Out No longer eligibl e based on patient's age to complete this topic MENINGOCOCCAL GROUPS A/C/Y/W VACCINE Aged Out No longer eligible b ased on patient's age to complete this topic Insurance MEDICARE [facility] Care Teams Collarette Separator Relationship Specialty Start Date End Date Ted Morataya MD [address] [place] [address] PCP - General 06/13/18 "
--- OUTSIDE RECORDS SUMMARY | 2025-03-16 23:02 | XMS_ITS | Encounter Summary ---
Author Organization [facility] Address [address] [place] [address] Phone Care Team Providers Care Manufacturing Plant Manager Name Role Phone Kash Damon MD Primary Care Provider [phone] Alfonso England MD Unavailable [phone] Encounter Details Date Type Department Care Team (Late st Contact Info) Description 03/13/2025 Telephone [facility] [address] [place] [address] Claytno Zelaya PA [address] [place] [address] Social History Tobacco Use Types [...] on file Legal Sex Female 8:12 PM DIRECTOR OF ELEMENTARY EDUCATION Gender Identity Not on file Sexual Orientation Not on file documented as of this encounter Plan of Treatment Not on file documented as of this encounter Visit Diagnoses Not on filedocumented in this encounter Care Teams Manufacturing Plant Manager Relationship Specialty Start Date End Date Kash Damon MD [address] [place] [address] PCP - General Internal Medicine 07/10/21 Alfonso England MD [address] [facility] [address] [place] [address] Consulting Physician Rheumatology 11/11/23 documented as of this encounter
--- OUTSIDE RECORDS SUMMARY | 2025-03-16 23:02 | XMS_ITS | Clinical Summary ---
Author Organization [facility] [place] [address] Address [address] [place] [address] Care Team Providers Care Sash Maker Name Role Phone Kash Damon MD Primary Care Provider [phone] Alfonso England MD Unavailable [phone] Allergies Active Allergy Reactions Criticality Noted Date [...] 11/14/2024 Assessment & Plan (11/14/2024 3:00 PM ORNAMENTAL IRON WORKER APPRENTICE): Has had right upper jaw pain stemming from tooth extraction in June 2024. Has been referred to oral surgeon for delayed healing from dentist. Will obtain panoramic x-ray to rule out AVN given that she is on treatment with Prolia. Chronic right shoulder pain 04/13/2023 Assessment & Plan (12/31/2023 1:47 PM ORNAMENTAL IRON WORKER APPRENTICE): Several months ago, she developed right shoulder discomfort after moving a piece of furniture. Has right shoulder pain with resisted internal/external rotation and right shoulder abduction. Suspect rotator cuff tendinitis. She previously deferred physical therapy. With that said, notes that she will be proceeding with physical therapy in the near future to address this. Assessment & Plan (10/01/2023 4:24 PM ORNAMENTAL IRON WORKER APPRENTICE): Last visit, has complained of discomfort in [...] into the L FCR tendon per [facility] ortho, on 06/18/2021. This offered temporary benefit for 4 weeks with a return in symptoms. No benefit with prednisone. After last visit, she was re-evaluated by Dr. Perez. He recommended OTC advil and voltaren gel, which has offered significant benefit. Recommended surgical intervention if symptoms persist or worsen, which defers at this time. Assessment & Plan (11/03/2021 9:50 AM ORNAMENTAL IRON WORKER APPRENTICE): A primary complaint for the past several visits has been persistent left forearm pain. She she was evaluated by [facility] Mend[facility]ola ortho, on 06/18/2021. He did administer a depo-medrol injection into the left FCR tendon. This offered temporary benefit for 4 weeks with a return in symptoms. No benefit with prednisone. Is scheduled to follow up with thai Mendiola, on Wednesday of this week. Assessment & Plan (10/06/2021 10:12 AM ORNAMENTAL IRON WORKER APPRENTICE): A primary complaint for the past several [...] Perez. Assessment & Plan (09/09/2021 12:20 PM ORNAMENTAL IRON WORKER APPRENTICE): A primary complaint at last visit was [...] since normalized. She does have a positive JEFFERSON, but this is to be expected with [...] September Assessment & Plan (12/26/2020 12:48 PM ORNAMENTAL IRON WORKER APPRENTICE): Will check ama/f actin and obtain liver US. Recheck labs today. Chronic bilateral low back pain without sciatica 09/17/2020 Overview (09/18/2020): X-ray cervical spine 09/17/2020: Moderate degenerative endplate changes with disc space narrowing at C5-C6 and C6- C7. 2 mm posterior malalignment of C5 on C6 L-spine moderate scoliosis of the lower thoracic and upper lumbar convex to the right and arat-qn-ywqdeiiv scoliosis the med mid lumbar convex to the left moderate to advanced OA changes with disc space narrowing Assessment & Plan (09/17/2020 12:53 PM ORNAMENTAL IRON WORKER APPRENTICE): Defers PT and/or pain management evaluation. Will obtain baseline imaging. Neck pain 09/17/2020 Overview (09/18/2020): X-ray cervical spine 09/17/2020: Moderate degenerative endplate changes with disc space narrowing at C5-C6 and C6- C7. 2 mm posterior malalignment of C5 on C6 L-spine moderate scoliosis of the lower thoracic and upper lumbar convex to the right and pdbg-xc-fxstzdjj scoliosis the med mid lumbar convex to [...] discussed. Assessment & Plan (09/17/2020 12:54 PM ORNAMENTAL IRON WORKER APPRENTICE): Defers PT and/or pain management evaluation. Will obtain baseline imaging. Encounter for long-term (current) use of medicat ions 08/06/2020 Assessment & Plan (03/13/2025 1:27 PM CDT): Neg quant 07/23/2020 Neg hep panel 07/23/2020 Assessment & Plan (11/14/2024 2:59 PM ORNAMENTAL IRON WORKER APPRENTICE): Neg quant 07/23/2020 Neg hep panel 07/23/2020 Assessment & Plan (04/12/2024 1:48 PM CDT): Neg quant 07/23/2020 Neg hep panel 07/23/2020 Assessment & Plan (12/31/2023 1:47 PM ORNAMENTAL IRON WORKER APPRENTICE): Neg quant 07/23/2020 Neg hep panel 07/23/2020 Assessment & Plan (10/01/2023 4:22 PM ORNAMENTAL IRON WORKER APPRENTICE): Neg quant 07/23/2020 Neg hep panel 07/23/2020 Assessment & Plan (08/20/2023 12:14 PM CDT): Neg quant 07/23/2020 Neg hep panel 07/23/2020 Assessment & Plan (04/13/2023 12:08 PM CDT): Neg quant 07/23/2020 Neg hep panel 07/23/2020 Assessment & Plan (11/30/2022 11:14 AM ORNAMENTAL IRON WORKER APPRENTICE): Neg quant 07/23/2020 Neg hep panel 07/23/2020 Assessment & Plan (05/11/2022 10:19 AM CDT): Neg quant 07/23/2020 Neg hep panel 07/23/2020 Assessment & Plan (02/02/2022 10:54 AM CDT): Neg quant 07/23/2020 Neg hep panel 07/23/2020 Assessment & Plan (11/03/2021 9:49 AM ORNAMENTAL IRON WORKER APPRENTICE): Neg quant 07/23/2020 Neg hep panel 07/23/2020 Assessment & Plan (10/06/2021 10:13 AM ORNAMENTAL IRON WORKER APPRENTICE): Neg quant 07/23/2020 Neg hep panel 07/23/2020 Assessment & Plan (09/09/2021 12:22 PM ORNAMENTAL IRON WORKER APPRENTICE): Neg quant 07/23/2020 Neg hep panel 07/23/2020 Assessment & Plan (06/17/2021 11:02 AM CDT): Neg quant 07/23/2020 Neg hep panel 07/23/2020 Assessment & Plan (05/08/2021 12:53 PM CDT): Neg quant 07/23/2020 Neg hep panel 07/23/2020 Assessment & Plan (02/06/2021 11:16 AM CDT): Neg quant 07/23/2020 Neg hep panel 07/23/2020 Assessment & Plan (12/26/2020 12:47 PM ORNAMENTAL IRON WORKER APPRENTICE): Neg quant 07/23/2020 Neg hep panel 07/23/2020 Assessment & Plan (11/21/2020 11:00 AM ORNAMENTAL IRON WORKER APPRENTICE): Neg quant 07/23/2020 Neg hep panel 07/23/2020 Assessment & Plan (10/21/2020 12:16 PM ORNAMENTAL IRON WORKER APPRENTICE): Neg quant 07/23/2020 Neg hep panel 07/23/2020 Assessment & Plan (09/17/2020 12:53 PM ORNAMENTAL IRON WORKER APPRENTICE): Neg quant 07/23/2020 Neg hep panel 07/23/2020 Assessment & Plan (08/06/2020 10:34 AM CDT): Neg quant 07/23/2020 Neg hep panel 07/23/2020 Seropositive rheumatoid arthritis 07/23/2020 Overview (08/21/2020): Initial labs 07/23/2020: Negative QuantiFERON Avise 07/24/2020: Positive JEFFERSON 1:160 speckled, positive rheumatoid factor IgM 80, [...] PIP OA, 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 Assessment & Plan (11/14/2024 2:57 PM ORNAMENTAL IRON WORKER APPRENTICE): CDAI 12. Since last visit, has noted [...] needed. Assessment & Plan (12/31/2023 1:46 PM ORNAMENTAL IRON WORKER APPRENTICE): CDAI 2. Since last visit, has done [...] needed. Assessment & Plan (10/01/2023 4:21 PM ORNAMENTAL IRON WORKER APPRENTICE): CDAI 4. Joint symptoms are improved with [...] is going to discuss this with her feed grinder, as well. In the meantime, will increase [...] needed. Assessment & Plan (11/30/2022 11:14 AM ORNAMENTAL IRON WORKER APPRENTICE): CDAI 9. Joints remain stable and fairly [...] needed. Assessment & Plan (11/03/2021 9:48 AM ORNAMENTAL IRON WORKER APPRENTICE): CDAI 16. Jory was unable to tolerate [...] needed. Assessment & Plan (10/06/2021 10:11 AM ORNAMENTAL IRON WORKER APPRENTICE): CDAI 12. Presents today due to recent [...] needed. Assessment & Plan (09/09/2021 12:17 PM ORNAMENTAL IRON WORKER APPRENTICE): CDAI 0. Peripheral joints continue to do [...] worsen. Assessment & Plan (12/26/2020 12:46 PM ORNAMENTAL IRON WORKER APPRENTICE): CDAI 23. Since last visit, patient was [...] future. Assessment & Plan (11/21/2020 11:02 AM ORNAMENTAL IRON WORKER APPRENTICE): CDAI 4. Since last visit, patient has [...] needed. Assessment & Plan (10/21/2020 12:14 PM ORNAMENTAL IRON WORKER APPRENTICE): CDAI 30. Patient has remained on Humira [...] osteoporosis. Assessment & Plan (09/17/2020 12:51 PM ORNAMENTAL IRON WORKER APPRENTICE): CDAI 30. Patient has begun Humira without [...] cdai 27. Labs, as above, displayed pos jefferson 1:160 speckled, pos rf igm, but otherwise [...] 07/23/2020 Assessment & Plan (09/17/2020 12:53 PM ORNAMENTAL IRON WORKER APPRENTICE): Long-standing history of pain and tenderness of [...] time. Assessment & Plan (11/14/2024 2:57 PM ORNAMENTAL IRON WORKER APPRENTICE): Has chronic dry eyes/dry mouth. Continue symptomatic [...] prn. Assessment & Plan (12/31/2023 1:46 PM ORNAMENTAL IRON WORKER APPRENTICE): Has chronic dry eyes/dry mouth. Continue symptomatic treatment of frequent fluids, Biotene mouthwash, good dental care,eye drops prn. Assessment & Plan (10/01/2023 4:21 PM ORNAMENTAL IRON WORKER APPRENTICE): Has chronic dry eyes/dry mouth. Continue symptomatic [...] prn. Assessment & Plan (11/30/2022 11:14 AM ORNAMENTAL IRON WORKER APPRENTICE): Has chronic dry eyes/dry mouth. Continue symptomatic [...] prn. Assessment & Plan (11/03/2021 9:48 AM ORNAMENTAL IRON WORKER APPRENTICE): Continue symptomatic treatment of frequent fluids, Biotene [...] dexa. Assessment & Plan (11/14/2024 2:59 PM ORNAMENTAL IRON WORKER APPRENTICE): DEXA 08/20/2020: Left femoral neck-2.1, left total [...] months Assessment & Plan (12/31/2023 1:47 PM ORNAMENTAL IRON WORKER APPRENTICE): DEXA 08/20/2020: Left femoral neck-2.1, left total [...] Prolia. Assessment & Plan (10/01/2023 4:22 PM ORNAMENTAL IRON WORKER APPRENTICE): DEXA 08/20/2020: Left femoral neck-2.1, left total [...] today. Assessment & Plan (11/30/2022 1:54 PM ORNAMENTAL IRON WORKER APPRENTICE): DEXA 08/20/2020: Left femoral neck-2.1, left total [...] d. Assessment & Plan (11/03/2021 9:49 AM ORNAMENTAL IRON WORKER APPRENTICE): DEXA 08/20/2020: Left femoral neck-2.1, left total hip:-1.1, right femoral neck: -2.0, right total hip:-1.1, FRAX 21/5.6 On risedronate x 2+ years. Last vitamin-D 02/06/2021 was 37. Last prolia 04/22/2021. Continue prolia q6 month injections. Will recheck vit d. Continue otc ca and vit d. Assessment & Plan (10/06/2021 10:12 AM ORNAMENTAL IRON WORKER APPRENTICE): DEXA 08/20/2020: Left femoral neck-2.1, left total hip:-1.1, right femoral neck: -2.0, right total hip:-1.1, FRAX 21/5.6 On risedronate x 2+ years. Last vitamin-D 02/06/2021 was 37. Last prolia 04/22/2021. Continue prolia q6 month injections. Will recheck vit d with labs in 4 weeks. Continue otc ca and vit d. Assessment & Plan (09/09/2021 12:22 PM ORNAMENTAL IRON WORKER APPRENTICE): DEXA 08/20/2020: Left femoral neck-2.1, left total hip:-1.1, right femoral neck: -2.0, right total hip:-1.1, FRAX 21/5.6 On risedronate x 2+ years. Last vitamin-D 02/06/2021 was 37. Last prolia 04/22/2021. Continue prolia q6 month injections. Continue otc ca and vit d. Assessment & Plan (06/17/2021 11:02 AM CDT): DEXA 08/20/2020: Left femoral neck-2.1, left total hip:-1.1, right femoral neck: -2.0, right total hip:-1.1, FRAX 21/5.6 On risedronate x 2+ years. Last vitamin D 01/2021 was 37. Last prolia 04/22/2021. Continue prolia q6 month injections. Continue otc ca and vit d. Assessment & Plan (05/08/2021 12:54 PM CDT): DEXA 08/20/2020: Left femoral neck-2.1, left total hip:-1.1, right femoral neck: -2.0, right total hip:-1.1, FRAX 21/5.6 On risedronate x 2+ years. Last vitamin D 01/2021 was 37. Last prolia 04/22/2021. Continue prolia q6 month injections. Continue otc ca and vit d. Recheck vit d today. Assessment & Plan (02/06/2021 11:17 [id number]|2025-03-17 01:24:00|2025-03-17 01:24:00|XMS_ITS|BKG DAEMON|External Medical Summaries|[id number]|" Encounter Summary Created on: March 17, 2025 Jory Angeles : 1950 Sex: Female Author Organization [facility] Address [address] [place] [address] Phone Care Team Providers Care Sash Maker Name Role Phone Kash Damon MD Primary Care Provider [phone] Alfonso England MD Unavailable [phone] Encounter Details Date Type Department Care Team (Late st Contact Info) Description 03/13/2025 Telephone [facility] [address] [place] [address] Clayton Zelaya PA [address] [place] [address] Social History Tobacco Use Types [...] on file Legal Sex Female 8:12 PM ORNAMENTAL IRON WORKER APPRENTICE Gender Identity Not on file Sexual Orientation Not on file documented as of this encounter Plan of Treatment Not on file documented as of this encounter Visit Diagnoses Not on filedocumented in this encounter Care Teams Sash Maker Relationship Specialty Start Date End Date Kash Damon MD [address] [place] [address] PCP - General Internal Medicine 07/10/21 Alfonso England MD [address] [facility] [address] [place] [address] Consulting Physician Rheumatology 11/11/23 documented as of this encounter "
--- OUTSIDE RECORDS SUMMARY | 2025-03-16 23:02 | XMS_ITS | Encounter Summary ---
Author Organization [facility] Address [address] [place] [address] Care Team Providers Care Fuels Engineer Name Role Phone Kash Damon MD Primary Care Provider Encounter Details Date Type Department Care Team (Latest Contact Info) Description 02/22/2025 Results Follow-Up [facility] Family & Internal Medicine [address] [address] Kash Damon MD [address] [place] [address] [phone] URINALYSIS, COMPREHENSIVE METABOLIC PANEL, URIC ACID BLOOD, Additional followed-up results: 3 Social History Tobacco Use Types Packs/Day Years Used Date Smoking Tobacco: Former Cigarettes 1 15 0 11/01/1992 - 11/01/2007 Smokeless Tobacco: Never Alcohol Use Standard Drinks/Week Comments Yes 1.7 (1 standard drink = 0.6 oz p ure alcohol) 1 glass of wine weekly PHQ-2 Answer Date Recorded Patient Health Questionnaire-2 Score 0 11/04/2023 Comments No Sex and Gender Information Value Date Recorded Sex Assigned at Female 03/01/2025 11:49 AM CDT Legal Sex Female 4:33 PM CDT Gender Identity Not on file Sexual Orientation Not on file documented as of this encounter Progress Notes * Kash Damon MD - 02/22/2025 5:13 PM CDT Labs review, will review with the patient at her next appointment. Future Appointments 03/01/2025 11:00 AM Kash Damon MD [id number] [facility] documented in this encounter Plan of Treatment Upcoming Encounters Date Type Department Care Team (Late st Contact Info) Description 09/03/2025 10:20 AM BUILDING CONSTRUCTION ENGINEER Office Visit [facility] Family & Internal Medicine [address] [address] Kash Damon MD [address] [place] [address] documented as of this encounter Visit Diagnoses Not on filedocumented in this encounter Additional Health Concerns Assessment Noted Time PHQ-9 Depression Total Score: 0 08/07/20 11:45 AM CDT documented as of this encounter Care Teams Fuels Engineer Relationship Specialty Start Date End Date Kash Damon MD [address] [place] [address] PCP - General 03/06/16 documented as of this encounter
--- OUTSIDE RECORDS SUMMARY | 2025-03-16 23:02 | XMS_ITS | Encounter Summary ---
Author Organization [facility] Address [address] [place] [address] Care Team Providers Care Playground Official Name Role Phone Kash Damon MD Primary Care Provider [phone] Encounter Details Date Type Department Care Team (Late Contact Info) Description 12/11/2022 Horticultural Asset Managementt Message Enc [facility] Family & Internal [address] [address] [facility], [facility] Provider lab results Social History Tobacco Use Types Packs/Day Years Used Date Smoking Tobacco: Former Cigarettes 1 15 0 11/01/1992 - 11/01/2007 Smokeless Tobacco: Never Alcohol Use Standard Drinks/Week Comments Yes 5 (1 standard drink = 0.6 oz pur e alcohol) 3-4 glasses of wine a week PHQ-2 Answer Date Recorded PHQ-2 Score - If the patient scores above 3, please move on to questions 3-9 0 07/02/2022 Comments No Sex and Gender Information Value Date Recorded Sex Assigned at Female 03/01/2025 11:49 AM CDT Legal Sex Female 4:33 PM CDT Gender Identity Not on file Sexual Orientation Not on file COVID-19 Exposure Response Date Recorded In the last 10 days, have yo u been in contact with someone who was confirmed or suspected to have Coronavirus/COVID-19? No / Unsure 12/09/2022 12:48 PM RESTAURANT ASSISTANT MANAGER documented as of this encounter Plan of Treatment Upcoming Encounters Date Type Department Care Team ([facility] Contact Info) Description 09/03/2025 10:20 AM RESTAURANT ASSISTANT MANAGER Office Visit [facility] Family & Internal [address] [address] Kash Damon MD [address] [place] [address] [phone] documented as of this encounter Visit Diagnoses Not on filedocumented in this encounter Additional Health Concerns Assessment Noted Time PHQ-9 Depression Total Score: 0 08/07/20 21 11:45 AM CDT documented as of this encounter Care Teams Playground Official Relationship Specialty Start Date End Date Kash Damon MD [address] [place] [address] PCP - General 03/06/16 documented as of this encounter
--- OUTSIDE RECORDS SUMMARY | 2025-03-16 23:02 | XMS_ITS | Encounter Summary ---
Author Organization [facility] Address [address] [facility] [place] [address] Care Team Providers Care Asphalt Worker Name Role Phone Ted Morataya MD Primary Care Provider Encounter Details Date Type Department Care Team (Late st Contact Info) Description 06/12/2020 Lab Requisition [facility] [address] [place] [address] Kieran Smith MD [address] [place] [address] Social History Tobacco Use Types Packs/Day Years Used Date Smoking Tobacco: Never Assessed Comments Unknown Sex and Gender Information Value Date Recorded Sex Assigned at Not on file Legal Sex Female 6:30 AM GREASE PRESS HELPER Gender Identity Not on file Sexual Orientation Not on file documented as of this encounter Plan of Treatment Not on file documented as of this encounter Procedures Procedure Name Priority Date/Time Associated Diagnosis Comments DERMATOPATHOLOGY Routine 06/11/2020 12:0 0 AM CDT documented in this encounter Results * DERMATOPATHOLOGY (06/11/2020 12:00 AM CDT) Case Report Dermatopathology Report Case: [id number] Authorizing Provider: Kieran Smith MD Collected: 06/11/2020 12:00 AM Ordering Location: [facility] Received: 06/12/2020 03:02 PM Pathologist: Darline Hogan MD Specimen: Skin, right distal lat thigh 0 3:39 PM CDT DERMATOPATHOLOGY LABORATORY Final Diagnosis Specimen A. SKIN, right distal lat thigh: LICHEN PLANUS-LIKE KERATOSIS (BENIGN LICHENOID KERATOSIS) (L82.1) 0 3:39 PM CDT DERMATOPATHOLOGY LABORATORY Clinical History R/O SCC, BCC, Schroeder's 0 3:39 PM CDT DERMATOPATHOLOGY LABORATORY Gross Description Specimen A: Received is one formalin filled container labeled with the patient's name and designated right distal lat thigh. The specimen consists of a shave biopsy measuring 12x9x2 mm. Jar 0. 0 3:39 PM CDT DERMATOPATHOLOGY LABORATORY Microscopic Description Specimen A. SKIN, right distal lat thigh: The epidermis is mildly acanthotic. There is a lichenoid infiltrate with vacuolar changes of basilar keratinocytes and scattered necrotic keratinocytes. 0 3:39 PM CDT DERMATOPATHOLOGY LABORATORY Disclaimer An external and internal positive and negative controls are appropriate for the histochemical, immunohistochemical and immunofluorescence stain(s) in this case (if any), except where stated explicitly. The performance characteristics of the stain(s) cited in this report were developed and its performance characteristic determined by the Dermatopathology Laboratory at [facility], directed by Dr. Mio Rogers. These tests need not be, and therefore are not, approved by the [place] Food and Drug Administration. The tests are used for clinical purposes. Billing Codes Specimen Charges Stain Charges 36336 1 0 3:39 PM CDT DERMATOPATHOLOGY LABORATORY Embedded Images 0 3:39 PM CDT DERMATOPATHOLOGY LABORATORY Pathology/Cytolog y TISSUE SPECIMEN FROM SKIN / Unknown 06/11/2020 06/12/2020 3:02 PM CDT Kiearn Smith MD LAB - PATHOLOGY/CYTOLOGY ORD ERABLES Final Result DERMATOPATHOLOGY LABORATORY [facility] - Department of Dermatology [employer] [facility]/[address] [address], [facility] [phone] documented in this encounter Visit Diagnoses Not on filedocumented in this encounter Care Teams Asphalt Worker Relationship Specialty Start Date End Date Ted Morataya MD [address] [place] [address] PCP - General 06/13/18 documented as of this encounter
--- OUTSIDE RECORDS SUMMARY | 2025-03-16 23:02 | XMS_ITS | Continuity of Care Document ---
Author Organization [facility] Address [address] [place] [address] Phone Care Team Providers Care Clerical Warehouse Worker Name Role Phone Lopez OD, Lloyd Unavailable Unavailable Advance Directives Directive Yes / No Effective Date File Name No Information Encounters Encounter Description Practice Location Reason(s) For Visit Diagnoses Date Provider Providers Copied on Encounter [facility], [address], [place], [place], [id number], [place] tel:[phone] [facility] No Information 1-200 5 Lopez OD Lloyd. [address] , [address], [place], [address], [place]. tel:[phone] Family History Family Member Type Diagnosis Age At Onset No Information Payers Payer name Insurance type Covered constitution party ID Authoriza tion(s) No Information Social History Type Description Quantity Date Captured Comments Sex Female Smoking Status No Information Chief Complaint And Reason For Visit No Information Reason For Referral Reason For Referral No Information History Of Present Illness Encounter Date Complaint History Of Prese nt Illness No Information Functional Status Date Functional Assessmen t No Information Instructions Date Instruction Additional Infor mation No Information Assessments Type Assessment Date No Information Patient Care Teams Name Effective Dates (start - stop) Status Members No Information
--- OUTSIDE RECORDS SUMMARY | 2025-03-16 23:02 | XMS_ITS | Continuity of Care Document ---
Author Organization [facility] Address [address] [place] [address] Phone Care Team Providers Care Telecommunication Systems Designer Name Role Phone Eduard Guzmán Unavailable Unavailable Procedures Procedure Date THERAPEUTIC EXERCISES ULTRASOUND THERAPY HOT/COLD PACK ELECTRIC STIMULATION UNATT PT EVALUATION THERAPEUTIC EXERCISES NEUROMUSCULAR RE-ED MANUAL THERAPY Carrying, Moving And Handling Objects-Cu rrent Carrying, Moving And Handling Objects-Go al Medications Name Dose Freq Route DOC March Pain Assess Positive DOC 2015 BMI Low F/U Plan DOC Future Fall Risk Positive 2+ Falls or 1 Fall w/ Injury RA DOC Scre ened for Fall Risk Plan of Care DOC Functional Outcome Assessmen t documented, deficits identified, treatment plan es Advance Directives Directive Yes / No Effective Date File Name No Information Encounters Encounter Description Practice Location Reason(s) For Visit Diagnoses Date Provider Providers Copied on Encounter [facility], [address] [address], [place], [place], [id number], [place] tel:[phone] [place] No Information 6 Yakov Chapa. [address], [address], [place], [address], [place]. tel: [phone] [facility], [address] [address], [place], [place], [id number], [place] tel:[phone] [place] No Information May-0 9-201 6 Arethal Eduard. [address] [address] [facility], [address], [place], [address], [place]. tel:[phone] Referring Provider: [place], [address]. tel:[phone] [facility], [address], [place], [place], [id number], tel:[phone] [place] Pain in left shoulderStiffnes s of left shoulder, not elsewhere classifiedMuscle weakness (generalized)Uns pecified disorder of synovium and tendon, left shoulder May-0 6-201 6 Mujuanital Eduard. [address] [facility], [address], [place], [address], [place]. tel:[phone] Referring Provider: [place], [address]. tel:[phone] Family History Family Member Type Diagnosis Age At Onset No Information Payers Payer name Insurance type Covered democrat ID Authoriza tion(s) Medicare [place] [id number] [facility] [id number] Social History Type Description Quantity Date Captured [...]
--- OUTSIDE RECORDS SUMMARY | 2025-03-16 23:02 | XMS_ITS | Encounter Summary ---
Author Organization [facility] Address [address] [place] [address] Care Team Providers Care Bridge Painter Helper Name Role Phone Kash Damon MD Primary Care Provider [phone] Reason for Visit * Reason Comments Lab (SCAN) Encounter Details Date Type Department Care Team (Latest Contact Info) Description 03/10/2025 Scan HEALTH INFO [facility] Scanned, Doc [facility] Lab (SCAN) Social History Tobacco Use Types Packs/Day Years [...] st Contact Info) Description 09/03/2025 10:20 AM VACUUM TESTER CANS Office Visit [facility] [address] [place] [address] Kash Damon MD [address] [place] [address] documented as of this encounter Procedures Procedure Name Priority Date/Time Associated Diagnosis Comments OUTSIDE LAB (SCAN ORDER) 03/10/2025 OUTSIDE LAB (SCAN ORDER) 03/10/2025 documented in this encounter Results * OUTSIDE LAB (SCAN ORDER) (03/10/2025) 03/10/2025 us [employer] [employer] [facility] Scanned SCANNING Final Resu lt * OUTSIDE LAB (SCAN ORDER) (03/10/2025) 03/10/2025 us [employer] [facility] Scanned SCANNING Final Resu lt documented in this encounter Visit Diagnoses Not on filedocumented in this encounter Additional Health Concerns Assessment Noted Time PHQ-9 Depression Total Score: 0 08/07/20 21 11:45 AM CDT documented as of this encounter Care Teams Bridge Painter Helper Relationship Specialty Start Date End Date Kash Damon MD [address] [place] [address] PCP - General 03/06/16 documented as of this encounter
[2025-03-16 23:10] VITALS: BP 121/71; PULSE 61; RESP 16; TEMP 36.6; O2SAT 94
--- NOTE | 2025-03-16 23:14 | PC.NURSE ---
edp praneeth fabian at triage desk for assessment.
[2025-03-16 23:27] LABS: Glucose Point of Care 112 mg/dl (65-105)
[2025-03-16 23:31] LABS: Basophils Percent Auto 0.6 % (0.2-1.2); Eosinophils Absolute Auto 0.3 K/mm3 (0-0.3); Eosinophils Percent Auto 4.5 % (0-4.4); Hematocrit 41.4 % (37.0-47.0); Hemoglobin 13.3 g/dL (12.0-15.0); Immature Granulocyte Absolute 0.02 K/mm3 (0.00-0.031); Immature Granulocyte Percent A 0.3 % (0-0.5); Lymphocytes Absolute Auto 2.07 K/mm3 (0.9-3.2); Lymphocytes Percent Auto 33.4 % (18.3-44.2); Mean Corpuscular HGB Conc 32.1 g/dl (32-36); Mean Corpuscular Hemoglobin 31.1 pg (26-34); Mean Corpuscular Volume 96.7 fl (80-100); Mean Platelet Volume 9.4 fl (7.4-10.4); Monocytes Absolute Auto 0.6 K/mm3 (0.1-0.6); Monocytes Percent Auto 9.7 % (2.6-8.5); Neutrophils Absolute Auto 3.2 K/mm3 (1.3-6.7); Neutrophils Percent Auto 51.5 % (45.5-73.1); Platelet Count Result 159 k/mm3 (150-375); Red Blood Count 4.28 M/mm3 (4.2-5.4); Red Cell Distribution Width 13.2 % (11.5-14.5); White Blood Count 6.2 K/mm3 (4.5-10.0)
[2025-03-16 23:45] LABS: Alanine Aminotransferase 20 U/L (6-35); Albumin Level 4.2 g/dL (3.5-5.1); Alkaline Phosphatase 67 U/L (38-126); Anion Gap 6 mmol/L (4-12); Aspartate Amino Transferase 36 U/L (14-36); Bilirubin,Total 0.3 mg/dL (0.2-1.3); Blood Urea Nitrogen 17 mg/dL (7-17); Calcium 9.3 mg/dL (8.4-10.2); Carbon Dioxide 29 mmol/L (22-30); Chloride 105 mmol/L (98-107); Estimated CRCL calculation 46 ml/min; Estimated Glomerular Filt Rate > 60; Glucose 107 mg/dL (65-110); Potassium 3.6 mmol/L (3.4-5.0); Sodium 140 mmol/L (137-145)
[2025-03-16 23:47] LABS: Prothrombin Time 13.4 Seconds (11.1-14.7)
[2025-03-16 23:48] VITALS: BP 145/95; PULSE 82; RESP 19; O2SAT 100
[2025-03-16 23:57] LABS: Troponin I < 0.012 ng/mL (0.000-0.034)
[2025-03-17] VITALS (8 sets, daily range): BP systolic 112–149; BP diastolic 88–97; PULSE 60–79; RESP 16–18; TEMP 36–36.6; O2SAT 96–98; BMI 20.5
--- NOTE | 2025-03-17 00:02 | ECG_ITS ---
Test Date: 2025-03-17 00:02:41 Measurements Intervals [place] Rate: 71 P: 43 MO: 163 QRS: -53 QRSD: 99 T: 44 QT: 360 QTc: 393 Interpretive Statements SINUS RHYTHM WITH OCCASIONAL VENTRICULAR PREMATURE COMPLEXES WITH FREQUENT SUPRAVENTRICULAR PREMATURE COMPLEXES LEFT ANTERIOR FASCICULAR BLOCK [QRS AXIS <= -45, QR IN I, RS IN II] POSSIBLE ANTERIOR MYOCARDIAL INFARCTION , PROBABLY OLD [30 ms Q WAVE IN V3/V4, OR R < 0.2 mV IN V4] ABNORMAL ECG No previous ECG available for comparison Electronically Signed On 03-17-2025 08:09:13 CDT by Matt Miller M.D.
[2025-03-17 01:04] LABS: Glucose Point of Care 116 mg/dl (65-105)
--- OUTSIDE RECORDS SUMMARY | 2025-03-17 01:24 | XMS_ITS | Referral Summary ---
Author Organization [facility] [address] Address [address] [place] [address] Care Team Providers Care Marketing Communications Associate Name Role Phone Kash Damon MD Primary Care Provider [phone] Alfonso England MD Unavailable Encounters Date Type Department Care Team Description 03/15/2025 Results Follow-Up [facility] [address] [place] [phone] Clayton Zelaya PA 03/13/[address] [address] Clayton Zelaya PA 03/13/2025 1:00 PM CDT Office Visit [address] [address] Clayton Zelaya PA Seropositive rheumatoid [...] 11/14/2024 Assessment & Plan (11/14/2024 3:00 PM SUCTION OPERATOR): Has had right upper jaw pain stemming from tooth extraction in June 2024. Has been referred to oral surgeon for delayed healing from dentist. Will obtain panoramic x-ray to rule out AVN given that she is on treatment with Prolia. Chronic right shoulder pain 04/13/2023 Assessment & Plan (12/31/2023 1:47 PM SUCTION OPERATOR): Several months ago, she developed right shoulder discomfort after moving a piece of furniture. Has right shoulder pain with resisted internal/external rotation and right shoulder abduction. Suspect rotator cuff tendinitis. She previously deferred physical therapy. With that said, notes that she will be proceeding with physical therapy in the near future to address this. Assessment & Plan (10/01/2023 4:24 PM SUCTION OPERATOR): Last visit, has complained of discomfort in [...] time. Assessment & Plan (11/03/2021 9:50 AM SUCTION OPERATOR): A primary complaint for the past several [...] week. Assessment & Plan (10/06/2021 10:12 AM SUCTION OPERATOR): A primary complaint for the past several [...] Perez. Assessment & Plan (09/09/2021 12:20 PM SUCTION OPERATOR): A primary complaint at last visit was [...] September Assessment & Plan (12/26/2020 12:48 PM SUCTION OPERATOR): Will check ama/f actin and obtain liver US. Recheck labs today. Chronic bilateral low back pain without sciatica 09/17/2020 Overview (09/18/2020): X-ray cervical spine 09/17/2020: Moderate degenerative endplate changes with disc space narrowing at C5-C6 and C6- C7. 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 Will obtain baseline imaging. Neck pain 09/17/2020 Overview (09/18/2020): X-ray cervical spine 09/17/2020: Moderate degenerative endplate changes with disc space narrowing at C5-C6 and C6- C7. 2 mm posterior malalignment of C5 on C6 L-spine moderate scoliosis of the lower thoracic and upper lumbar convex to the right and ssxl-qg-rxthneci scoliosis the med mid lumbar convex to [...] discussed. Assessment & Plan (09/17/2020 12:54 PM SUCTION OPERATOR): Defers PT and/or pain management evaluation. Will obtain baseline imaging. Encounter for long-term (current) use of medicat ions 08/06/2020 Assessment & Plan (03/13/2025 1:27 PM CDT): Neg quant 07/23/2020 Neg hep panel 07/23/2020 Assessment & Plan (11/14/2024 2:59 PM SUCTION OPERATOR): Neg quant 07/23/2020 Neg hep panel 07/23/2020 Assessment & Plan (04/12/2024 1:48 PM CDT): Neg quant 07/23/2020 Neg hep panel 07/23/2020 Assessment & Plan (12/31/2023 1:47 PM SUCTION OPERATOR): Neg quant 07/23/2020 Neg hep panel 07/23/2020 Assessment & Plan (10/01/2023 4:22 PM SUCTION OPERATOR): Neg quant 07/23/2020 Neg hep panel 07/23/2020 Assessment & Plan (08/20/2023 12:14 PM CDT): Neg quant 07/23/2020 Neg hep panel 07/23/2020 Assessment & Plan (04/13/2023 12:08 PM CDT): Neg quant 07/23/2020 Neg hep panel 07/23/2020 Assessment & Plan (11/30/2022 11:14 AM SUCTION OPERATOR): Neg quant 07/23/2020 Neg hep panel 07/23/2020 Assessment & Plan (05/11/2022 10:19 AM CDT): Neg quant 07/23/2020 Neg hep panel 07/23/2020 Assessment & Plan (02/02/2022 10:54 AM CDT): Neg quant 07/23/2020 Neg hep panel 07/23/2020 Assessment & Plan (11/03/2021 9:49 AM SUCTION OPERATOR): Neg quant 07/23/2020 Neg hep panel 07/23/2020 Assessment & Plan (10/06/2021 10:13 AM SUCTION OPERATOR): Neg quant 07/23/2020 Neg hep panel 07/23/2020 Assessment & Plan (09/09/2021 12:22 PM SUCTION OPERATOR): Neg quant 07/23/2020 Neg hep panel 07/23/2020 Assessment & Plan (06/17/2021 11:02 AM CDT): Neg quant 07/23/2020 Neg hep panel 07/23/2020 Assessment & Plan (05/08/2021 12:53 PM CDT): Neg quant 07/23/2020 Neg hep panel 07/23/2020 Assessment & Plan (02/06/2021 11:16 AM CDT): Neg quant 07/23/2020 Neg hep panel 07/23/2020 Assessment & Plan (12/26/2020 12:47 PM SUCTION OPERATOR): Neg quant 07/23/2020 Neg hep panel 07/23/2020 Assessment & Plan (11/21/2020 11:00 AM SUCTION OPERATOR): Neg quant 07/23/2020 Neg hep panel 07/23/2020 Assessment & Plan (10/21/2020 12:16 PM SUCTION OPERATOR): Neg quant 07/23/2020 Neg hep panel 07/23/2020 Assessment & Plan (09/17/2020 12:53 PM SUCTION OPERATOR): Neg quant 07/23/2020 Neg hep panel 07/23/2020 [...] needed. Assessment & Plan (11/14/2024 2:57 PM SUCTION OPERATOR): CDAI 12. Since last visit, has noted [...] needed. Assessment & Plan (12/31/2023 1:46 PM SUCTION OPERATOR): CDAI 2. Since last visit, has done [...] needed. Assessment & Plan (10/01/2023 4:21 PM SUCTION OPERATOR): CDAI 4. Joint symptoms are improved with [...] is going to discuss this with her vendor management specialist, as well. In the meantime, will increase [...] needed. Assessment & Plan (11/30/2022 11:14 AM SUCTION OPERATOR): CDAI 9. Joints remain stable and fairly [...] needed. Assessment & Plan (11/03/2021 9:48 AM SUCTION OPERATOR): CDAI 16. Jory was unable to tolerate [...] needed. Assessment & Plan (10/06/2021 10:11 AM SUCTION OPERATOR): CDAI 12. Presents today due to recent [...] needed. Assessment & Plan (09/09/2021 12:17 PM SUCTION OPERATOR): CDAI 0. Peripheral joints continue to do [...] worsen. Assessment & Plan (12/26/2020 12:46 PM SUCTION OPERATOR): CDAI 23. Since last visit, patient was [...] future. Assessment & Plan (11/21/2020 11:02 AM SUCTION OPERATOR): CDAI 4. Since last visit, patient has [...] needed. Assessment & Plan (10/21/2020 12:14 PM SUCTION OPERATOR): CDAI 30. Patient has remained on Humira [...] osteoporosis. Assessment & Plan (09/17/2020 12:51 PM SUCTION OPERATOR): CDAI 30. Patient has begun Humira without [...] 07/23/2020 Assessment & Plan (09/17/2020 12:53 PM SUCTION OPERATOR): Long-standing history of pain and tenderness of [...] time. Assessment & Plan (11/14/2024 2:57 PM SUCTION OPERATOR): Has chronic dry eyes/dry mouth. Continue symptomatic [...] prn. Assessment & Plan (12/31/2023 1:46 PM SUCTION OPERATOR): Has chronic dry eyes/dry mouth. Continue symptomatic treatment of frequent fluids, Biotene mouthwash, good dental care,eye drops prn. Assessment & Plan (10/01/2023 4:21 PM SUCTION OPERATOR): Has chronic dry eyes/dry mouth. Continue symptomatic [...] prn. Assessment & Plan (11/30/2022 11:14 AM SUCTION OPERATOR): Has chronic dry eyes/dry mouth. Continue symptomatic [...] prn. Assessment & Plan (11/03/2021 9:48 AM SUCTION OPERATOR): Continue symptomatic treatment of frequent fluids, Biotene [...] dexa. Assessment & Plan (11/14/2024 2:59 PM SUCTION OPERATOR): DEXA 08/20/2020: Left femoral neck-2.1, left total [...] months Assessment & Plan (12/31/2023 1:47 PM SUCTION OPERATOR): DEXA 08/20/2020: Left femoral neck-2.1, left total [...] Prolia. Assessment & Plan (10/01/2023 4:22 PM SUCTION OPERATOR): DEXA 08/20/2020: Left femoral neck-2.1, left total [...] today. Assessment & Plan (11/30/2022 1:54 PM SUCTION OPERATOR): DEXA 08/20/2020: Left femoral neck-2.1, left total [...] d. Assessment & Plan (11/03/2021 9:49 AM SUCTION OPERATOR): DEXA 08/20/2020: Left femoral neck-2.1, left total hip:-1.1, right femoral neck: -2.0, right total hip:-1.1, FRAX 21/5.6 On risedronate x 2+ years. Last vitamin-D 02/06/2021 was 37. Last prolia 04/22/2021. Continue prolia q6 month injections. Will recheck vit d. Continue otc ca and vit d. Assessment & Plan (10/06/2021 10:12 AM SUCTION OPERATOR): DEXA 08/20/2020: Left femoral neck-2.1, left total hip:-1.1, right femoral neck: -2.0, right total hip:-1.1, FRAX 21/5.6 On risedronate x 2+ years. Last vitamin-D 02/06/2021 was 37. Last prolia 04/22/2021. Continue prolia q6 month injections. Will recheck vit d with labs in 4 weeks. Continue otc ca and vit d. Assessment & Plan (09/09/2021 12:22 P [id number]|2025-03-16 23:02:00|2025-03-16 23:01:00|XMS_ITS|BKG DAEMON|External Medical Summaries|[id number]|" Encounter Summary Created on: March 16, 2025 Jory Angeles : 1950 Sex: Female Author Organization [facility] Address [address] [place] [address] [place] [address] Care Team Providers Care Marketing Communications Associate Name Role Phone Ted Morataya MD Primary Care Provider [phone] Encounter Details Date Type Department Care Team (Late st Contact Info) Description 02/06/2020 Lab Requisition [facility] [address] [facility] [place] [id number] Kieran Smith MD [address] [place] [address] Social History Tobacco Use Types Packs/Day Years Used Date Smoking Tobacco: Never Assessed Comments Unknown Sex and Gender Information Value Date Recorded Sex Assigned at Not on file Legal Sex Female 6:30 AM SUCTION OPERATOR Gender Identity Not on file Sexual Orientation Not on file documented as of this encounter Plan of Treatment Not on file documented as of this encounter Procedures Procedure Name Priority Date/Time Associated Diagnosis Comments DERMATOPATHOLOGY Routine 02/05/2020 12:0 0 AM CDT documented in this encounter Results * DERMATOPATHOLOGY (02/05/2020 12:00 AM CDT) Case Report Dermatopathology Report Case: [id number] Authorizing Provider: Kieran Smith MD Collected: 02/05/2020 12:00 AM Ordering Location: [facility] Lab Received: 02/06/2020 12:18 PM Pathologist: Aida Rogers MD Specimens: A) - Skin, left dorsal hand thumb web B) - Skin, right superior lateral calf C) - Skin, left superior anterior pretibia 0 1:35 PM CDT DERMATOPATHOLOGY LABORATORY Final Diagnosis Specimen A. 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 SKIN, left superior anterior pretibia: BENIGN VERRUCOUS KERATOSIS, INFLAMED (L82.1) 0 1:35 PM CDT DERMATOPATHOLOGY LABORATORY Clinical History A-C: R/O ISK, SK, HAK, Schroeder's, prurigo nodules. 0 1:35 PM CDT DERMATOPATHOLOGY LABORATORY Gross Description Specimen A: Received is one formalin filled container labeled with the patient's name and designated left dorsal hand thumb web. The specimen consists of a shave biopsy measuring [id number]. Jar 0. Specimen B: Received is one formalin filled container labeled with the patient's name and designated right superior lateral calf. The specimen consists of a shave biopsy measuring [id number]. Jar 0. Specimen C: Received is one formalin filled container labeled with the patient's name and designated left superior anterior pretibia. The specimen consists of a shave biopsy measuring [id number]. Jar 0. 0 1:35 PM CDT DERMATOPATHOLOGY LABORATORY Microscopic Description Specimen A. SKIN, left dorsal hand thumb web: Sections reveal parakeratosis, acanthosis and keratinocyte dysmaturation which is most prominent in the lower epidermis. Focal nests are present in the dermis. The epidermis is focally necrotic and covered with a scale-crust. There is fibrin at the base. Specimen B. SKIN, right superior lateral calf: There is hyperkeratosis alternating with parakeratosis. There is epidermal hyperplasia with disorderly maturation of keratinocytes with nuclear pleomorphism confined to the lower half of the epidermis. There is a dome-shaped portion of skin with psoriasiform epidermal hyperplasia, compact hyperkeratosis, and fibrosis of the papillary dermis associated with a superficial perivascular lymphohistiocytic infiltrate. Specimen C. SKIN, left superior anterior pretibia: Sections show hyperkeratosis, papillomatosis, hypergranulosis, and acanthosis. Inflammatory cells are present within the dermis. These histological findings can be seen in a verruca vulgaris or a seborrheic keratosis. 0 1:35 PM CDT DERMATOPATHOLOGY LABORATORY Disclaimer An external and internal positive and negative controls are appropriate for the histochemical, immunohistochemical and immunofluorescence stain(s) in this case (if any), except where stated explicitly. The performance characteristics of the stain(s) cited in this report were developed and its performance characteristic determined by the Dermatopathology Laboratory at [facility], directed by Dr. Mio Rogers. These tests need not be, and therefore are not, approved by the [place] Food and Drug Administration. The tests are used for clinical purposes. Billing Codes Specimen Charges Stain Charges 31187 47023 12407 1 1 1 0 1:35 PM CDT DERMATOPATHOLOGY LABORATORY Embedded Images 0 1:35 PM CDT DERMATOPATHOLOGY LABORATORY Pathology/Cytology TISSUE SPECIMEN FROM SKIN / Unknown 02/05/2020 02/06/2020 12:18 PM CDT Miscellaneous samples (specimen) TISSUE SPECIMEN FROM SKIN / Unknown 02/05/2020 02/06/2020 12:18 PM CDT Miscellaneous samples (specimen) TISSUE SPECIMEN FROM SKIN / Unknown 02/05/2020 02/06/2020 12:18 PM CDT us Kieran Smith MD LAB - PATHOLOGY/CYTOLOGY ORD ERABLES Final Result DERMATOPATHOLOGY LABORATORY [facility] - Department of Dermatology [address] [place] [address], [address] [place] [address], [place] [phone] documented in this encounter Visit Diagnoses Not on filedocumented in this encounter Care Teams Marketing Communications Associate Relationship Specialty Start Date End Date Ted Morataya MD [address] [place] [address] PCP - General 06/13/18 documented as of this encounter "
--- OUTSIDE RECORDS SUMMARY | 2025-03-17 01:24 | XMS_ITS | Clinical Summary ---
Author Organization [facility] Address [address] [place] [address] Care Team Providers Care Database Operator Name Role Phone Ted Morataya MD Primary Care Provider [phone] Source Comments [facility],non-owned Affiliates and Associated Physician Practices is amultiple site organization consisting of ambulatory clinics and hospital sitesin [place], [place], [place] and [place]. This disclosure is being madepursuant to the Care Everywhere program and may not contain all information available regarding this patient. Last updated 18.[facility] [employer] Social History Tobacco Use Types Packs/Day Years Used Date Smoking Tobacco: Never Assessed Comments Unknown Sex and Gender Information Value Date Recorded Sex Assigned at Not on file Legal Sex Female 6:30 AM RECREATIONAL RESORT MANAGER Gender Identity Not on file Sexual Orientation [...] age to complete this topic Insurance MEDICARE [facility] Care Teams Database Operator Relationship Specialty Start Date End Date Ted Morataya MD [address] [place] [address] PCP - General 06/13/18
--- OUTSIDE RECORDS SUMMARY | 2025-03-17 01:24 | XMS_ITS | Encounter Summary ---
Author Organization [facility] Address [address] [place] [address] Care Team Providers Care Farm Loan Representative Name Role Phone Kash Damon MD Primary Care Provider [phone] Reason for Visit * Reason Comments Lab [...] st Contact Info) Description 09/03/2025 10:20 AM KETTLE SKIMMER Office Visit [facility] Family & Internal Medicine [id number] [place] [address] Kash Damon MD [address] [place] [address] documented as of this encounter Procedures Procedure Name Priority Date/Time Associated Diagnosis Comments OUTSIDE LAB (SCAN ORDER) 03/10/2025 OUTSIDE LAB (SCAN ORDER) 03/10/2025 documented in this encounter Results * OUTSIDE LAB (SCAN ORDER) (03/10/2025) 03/10/2025 [facility] Scanned SCANNING Final Resu lt * OUTSIDE LAB (SCAN ORDER) (03/10/2025) 03/10/2025 [facility] Scanned SCANNING Final Resu lt documented in this encounter Visit Diagnoses Not on filedocumented in this encounter Additional Health Concerns Assessment Noted Time PHQ-9 Depression Total Score: 0 08/07/20 21 11:45 AM CDT documented as of this encounter Care Teams Farm Loan Representative Relationship Specialty Start Date End Date Kash Damon MD [address] [place] [address] PCP - General 03/06/16 documented as of this encounter
--- OUTSIDE RECORDS SUMMARY | 2025-03-17 01:24 | XMS_ITS | Continuity of Care Document ---
Author Organization [facility] Address [address] [place] [address] Phone Care Team Providers Care Drafter Geological Name Role Phone Lopez OD, Lloyd Unavailable Unavailable Advance Directives Directive Yes / No Effective Date File Name No Information Encounters Encounter Description Practice Location Reason(s) For Visit Diagnoses Date Provider Providers Copied on Encounter [facility], [address], [place], [place], [id number], [place] tel:[phone] [facility] No Information 1-200 5 Lopez OD Lloyd. [address] [place] , [address], [place], [address], [place]. tel:[phone] Family History Family Member Type Diagnosis Age [...]
--- OUTSIDE RECORDS SUMMARY | 2025-03-17 01:24 | XMS_ITS | Clinical Summary ---
Author Organization [facility] [address] Address [address] [place] [address] Care Team Providers Care Core Checker Name Role Phone Kash Damon MD Primary Care Provider [phone] Alfonso England MD Unavailable [phone] Allergies Active Allergy Reactions Criticality Noted Date [...] 11/14/2024 Assessment & Plan (11/14/2024 3:00 PM TEACHING PASTOR): Has had right upper jaw pain stemming from tooth extraction in June 2024. Has been referred to oral surgeon for delayed healing from dentist. Will obtain panoramic x-ray to rule out AVN given that she is on treatment with Prolia. Chronic right shoulder pain 04/13/2023 Assessment & Plan (12/31/2023 1:47 PM TEACHING PASTOR): Several months ago, she developed right shoulder discomfort after moving a piece of furniture. Has right shoulder pain with resisted internal/external rotation and right shoulder abduction. Suspect rotator cuff tendinitis. She previously deferred physical therapy. With that said, notes that she will be proceeding with physical therapy in the near future to address this. Assessment & Plan (10/01/2023 4:24 PM TEACHING PASTOR): Last visit, has complained of discomfort in [...] time. Assessment & Plan (11/03/2021 9:50 AM TEACHING PASTOR): A primary complaint for the past several [...] week. Assessment & Plan (10/06/2021 10:12 AM TEACHING PASTOR): A primary complaint for the past several [...] Perez. Assessment & Plan (09/09/2021 12:20 PM TEACHING PASTOR): A primary complaint at last visit was [...] September Assessment & Plan (12/26/2020 12:48 PM TEACHING PASTOR): Will check ama/f actin and obtain liver US. Recheck labs today. Chronic bilateral low back pain without sciatica 09/17/2020 Overview (09/18/2020): X-ray cervical spine 09/17/2020: Moderate degenerative endplate changes with disc space narrowing at C5-C6 and C6- C7. 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 Will obtain baseline imaging. Neck pain 09/17/2020 Overview (09/18/2020): X-ray cervical spine 09/17/2020: Moderate degenerative endplate changes with disc space narrowing at C5-C6 and C6- C7. 2 mm posterior malalignment of C5 on C6 L-spine moderate scoliosis of the lower thoracic and upper lumbar convex to the right and usfa-kd-fainnwkr scoliosis the med mid lumbar convex to [...] discussed. Assessment & Plan (09/17/2020 12:54 PM TEACHING PASTOR): Defers PT and/or pain management evaluation. Will obtain baseline imaging. Encounter for long-term (current) use of medicat ions 08/06/2020 Assessment & Plan (03/13/2025 1:27 PM CDT): Neg quant 07/23/2020 Neg hep panel 07/23/2020 Assessment & Plan (11/14/2024 2:59 PM TEACHING PASTOR): Neg quant 07/23/2020 Neg hep panel 07/23/2020 Assessment & Plan (04/12/2024 1:48 PM CDT): Neg quant 07/23/2020 Neg hep panel 07/23/2020 Assessment & Plan (12/31/2023 1:47 PM TEACHING PASTOR): Neg quant 07/23/2020 Neg hep panel 07/23/2020 Assessment & Plan (10/01/2023 4:22 PM TEACHING PASTOR): Neg quant 07/23/2020 Neg hep panel 07/23/2020 Assessment & Plan (08/20/2023 12:14 PM CDT): Neg quant 07/23/2020 Neg hep panel 07/23/2020 Assessment & Plan (04/13/2023 12:08 PM CDT): Neg quant 07/23/2020 Neg hep panel 07/23/2020 Assessment & Plan (11/30/2022 11:14 AM TEACHING PASTOR): Neg quant 07/23/2020 Neg hep panel 07/23/2020 Assessment & Plan (05/11/2022 10:19 AM CDT): Neg quant 07/23/2020 Neg hep panel 07/23/2020 Assessment & Plan (02/02/2022 10:54 AM CDT): Neg quant 07/23/2020 Neg hep panel 07/23/2020 Assessment & Plan (11/03/2021 9:49 AM TEACHING PASTOR): Neg quant 07/23/2020 Neg hep panel 07/23/2020 Assessment & Plan (10/06/2021 10:13 AM TEACHING PASTOR): Neg quant 07/23/2020 Neg hep panel 07/23/2020 Assessment & Plan (09/09/2021 12:22 PM TEACHING PASTOR): Neg quant 07/23/2020 Neg hep panel 07/23/2020 Assessment & Plan (06/17/2021 11:02 AM CDT): Neg quant 07/23/2020 Neg hep panel 07/23/2020 Assessment & Plan (05/08/2021 12:53 PM CDT): Neg quant 07/23/2020 Neg hep panel 07/23/2020 Assessment & Plan (02/06/2021 11:16 AM CDT): Neg quant 07/23/2020 Neg hep panel 07/23/2020 Assessment & Plan (12/26/2020 12:47 PM TEACHING PASTOR): Neg quant 07/23/2020 Neg hep panel 07/23/2020 Assessment & Plan (11/21/2020 11:00 AM TEACHING PASTOR): Neg quant 07/23/2020 Neg hep panel 07/23/2020 Assessment & Plan (10/21/2020 12:16 PM TEACHING PASTOR): Neg quant 07/23/2020 Neg hep panel 07/23/2020 Assessment & Plan (09/17/2020 12:53 PM TEACHING PASTOR): Neg quant 07/23/2020 Neg hep panel 07/23/2020 [...] needed. Assessment & Plan (11/14/2024 2:57 PM TEACHING PASTOR): CDAI 12. Since last visit, has noted [...] needed. Assessment & Plan (12/31/2023 1:46 PM TEACHING PASTOR): CDAI 2. Since last visit, has done [...] needed. Assessment & Plan (10/01/2023 4:21 PM TEACHING PASTOR): CDAI 4. Joint symptoms are improved with [...] is going to discuss this with her card stripper, as well. In the meantime, will increase [...] needed. Assessment & Plan (11/30/2022 11:14 AM TEACHING PASTOR): CDAI 9. Joints remain stable and fairly [...] needed. Assessment & Plan (11/03/2021 9:48 AM TEACHING PASTOR): CDAI 16. Jory was unable to tolerate [...] needed. Assessment & Plan (10/06/2021 10:11 AM TEACHING PASTOR): CDAI 12. Presents today due to recent [...] needed. Assessment & Plan (09/09/2021 12:17 PM TEACHING PASTOR): CDAI 0. Peripheral joints continue to do [...] worsen. Assessment & Plan (12/26/2020 12:46 PM TEACHING PASTOR): CDAI 23. Since last visit, patient was [...] future. Assessment & Plan (11/21/2020 11:02 AM TEACHING PASTOR): CDAI 4. Since last visit, patient has [...] needed. Assessment & Plan (10/21/2020 12:14 PM TEACHING PASTOR): CDAI 30. Patient has remained on Humira [...] osteoporosis. Assessment & Plan (09/17/2020 12:51 PM TEACHING PASTOR): CDAI 30. Patient has begun Humira without [...] 07/23/2020 Assessment & Plan (09/17/2020 12:53 PM TEACHING PASTOR): Long-standing history of pain and tenderness of [...] time. Assessment & Plan (11/14/2024 2:57 PM TEACHING PASTOR): Has chronic dry eyes/dry mouth. Continue symptomatic [...] prn. Assessment & Plan (12/31/2023 1:46 PM TEACHING PASTOR): Has chronic dry eyes/dry mouth. Continue symptomatic treatment of frequent fluids, Biotene mouthwash, good dental care,eye drops prn. Assessment & Plan (10/01/2023 4:21 PM TEACHING PASTOR): Has chronic dry eyes/dry mouth. Continue symptomatic [...] prn. Assessment & Plan (11/30/2022 11:14 AM TEACHING PASTOR): Has chronic dry eyes/dry mouth. Continue symptomatic [...] prn. Assessment & Plan (11/03/2021 9:48 AM TEACHING PASTOR): Continue symptomatic treatment of frequent fluids, Biotene [...] dexa. Assessment & Plan (11/14/2024 2:59 PM TEACHING PASTOR): DEXA 08/20/2020: Left femoral neck-2.1, left total [...] months Assessment & Plan (12/31/2023 1:47 PM TEACHING PASTOR): DEXA 08/20/2020: Left femoral neck-2.1, left total [...] Prolia. Assessment & Plan (10/01/2023 4:22 PM TEACHING PASTOR): DEXA 08/20/2020: Left femoral neck-2.1, left total [...] today. Assessment & Plan (11/30/2022 1:54 PM TEACHING PASTOR): DEXA 08/20/2020: Left femoral neck-2.1, left total [...] d. Assessment & Plan (11/03/2021 9:49 AM TEACHING PASTOR): DEXA 08/20/2020: Left femoral neck-2.1, left total hip:-1.1, right femoral neck: -2.0, right total hip:-1.1, FRAX 21/5.6 On risedronate x 2+ years. Last vitamin-D 02/06/2021 was 37. Last prolia 04/22/2021. Continue prolia q6 month injections. Will recheck vit d. Continue otc ca and vit d. Assessment & Plan (10/06/2021 10:12 AM TEACHING PASTOR): DEXA 08/20/2020: Left femoral neck-2.1, left total hip:-1.1, right femoral neck: -2.0, right total hip:-1.1, FRAX 21/5.6 On risedronate x 2+ years. Last vitamin-D 02/06/2021 was 37. Last prolia 04/22/2021. Continue prolia q6 month injections. Will recheck vit d with labs in 4 weeks. Continue otc ca and vit d. Assessment & Plan (09/09/2021 12:22 PM TEACHING PASTOR): DEXA 08/20/2020: Left femoral neck-2.1, left total [...] d today. Assessment & Plan (02/06/2021 11:17 130085|[id number]||2025-03-17 00:13:00|XR_ITS|ELZIMMILIZ|Imaging|[id number]|"XR chest 1V portable Ordering provider: Chester Uribe MD History: 74 years Female with . stroke symptoms since 2199. . Comparison: April 25, 2019 FINDINGS: MEDIASTINUM: The cardiac silhouette is not enlarged. LUNGS: No infiltrates, effusions or pneumothorax. OTHER: No free air under the diaphragm. Dextroscoliosis. Degenerative the spine. IMPRESSION: No acute cardiopulmonary pathology. Reviewed, dictated and finalized at location A. IMPRESSION: No acute cardiopulmonary pathology. "
--- OUTSIDE RECORDS SUMMARY | 2025-03-17 01:24 | XMS_ITS | Encounter Summary ---
Author Organization [facility] Address [address] [place] [address] Care Team Providers Care User Interface Engineer Name Role Phone Ted Morataya MD Primary Care Provider [phone] Encounter Details Date Type Department Care Team (Late st Contact Info) Description 06/12/2020 Lab Requisition [facility] DermPath Lab [address] [place] [address] Kieran Smith MD [address] [place] [address] Social History Tobacco Use Types Packs/Day Years Used Date Smoking Tobacco: Never Assessed Comments Unknown Sex and Gender Information Value Date Recorded Sex Assigned at Not on file Legal Sex Female 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 Gender Identity Not on file Sexual Orientation Not on file documented as of this encounter Plan of Treatment Not on file documented as of this encounter Procedures Procedure Name Priority Date/Time Associated Diagnosis Comments DERMATOPATHOLOGY Routine 06/11/2020 12:0 0 AM CDT documented in this encounter Results * DERMATOPATHOLOGY (06/11/2020 12:00 AM CDT) Case Report Dermatopathology Report Case: [id number] Authorizing Provider: Kieran Smith MD Collected: 06/11/2020 12:00 AM Ordering Location: [facility]erm[facility] Lab Received: 06/12/2020 03:02 PM Pathologist: [...] characteristic determined by the Dermatopathology Laboratory at [facility], directed by Dr. Mio Rogers. These tests need not be, and therefore are not, approved by the [place] Food and Drug Administration. The tests are used for clinical purposes. Billing Codes Specimen Charges Stain Charges 55065 1 0 3:39 PM CDT DERMATOPATHOLOGY LABORATORY Embedded Images 0 3:39 PM CDT DERMATOPATHOLOGY LABORATORY Pathology/Cytolog y TISSUE SPECIMEN FROM SKIN / Unknown 06/11/2020 06/12/2020 3:02 PM CDT Kieran Smith MD LAB - PATHOLOGY/CYTOLOGY ORD ERABLES Final Result DERMATOPATHOLOGY LABORATORY [facility] - Department of Dermatology Critical [facility]/[address] [address], [facility] [phone] documented in this encounter Visit Diagnoses Not on filedocumented in this encounter Care Teams User Interface Engineer Relationship Specialty Start Date End Date Ted Morataya MD [address] [place] [address] PCP - General 06/13/18 documented as of this encounter
--- OUTSIDE RECORDS SUMMARY | 2025-03-17 01:24 | XMS_ITS | Continuity of Care Document ---
Author Organization [facility] Address [address] [place] [address] Phone Care Team Providers Care Switch Technician Name Role Phone Eduard Guzmán Unavailable Unavailable [...] Diagnoses Date Provider Providers Copied on Encounter [facility], [address] [address], [place], [place], [id number], [place] tel:[phone] [place] No Information 6 Yakov Chapa. [address], [address], [place], [address], [place]. tel: [phone] [facility], [address] [address], [place], [place], [id number], [place] tel:[phone] [place] No Information May-0 9-201 6 Arethal Eduard. [address], [address], [place], [address], [place]. tel:[phone] Referring Provider: [place], [address]. tel:[phone] [facility], [address], [place], [place], [address], tel:[phone] [place] Pain in left shoulderStiffnes s of left shoulder, not elsewhere classifiedMuscle weakness (generalized)Uns pecified disorder of synovium and tendon, left shoulder May-0 6-201 6 Mujuanital Eduard. [address], [address], [place], [address], [place]. tel:[phone] Referring Provider: [place], [address]. tel:[phone] Family History Family Member Type Diagnosis Age At Onset No Information Payers Payer name Insurance type Covered constitution party ID Authoriza tion(s) Medicare [place] [id number] [facility] [id number] Social History Type Description Quantity Date Captured [...]
--- OUTSIDE RECORDS SUMMARY | 2025-03-17 01:24 | XMS_ITS | Encounter Summary ---
Author Organization [facility] Address [address] [place] [address] Care Team Providers Care Knifer Up Name Role Phone Kash Damon MD Primary Care Provider [phone] Encounter Details Date Type Department Care Team (Late Contact Info) Description 12/11/2022 Health Discoveryt Message Enc [facility] [address] [address] [facility], [facility] Provider lab results Social History Tobacco Use [...] Coronavirus/COVID-19? No / Unsure 12/09/2022 12:48 PM BATTERY INSTALLER documented as of this encounter Plan of Treatment Upcoming Encounters Date Type Department Care Team ([facility] Contact Info) Description 09/03/2025 10:20 AM BATTERY INSTALLER Office Visit [facility] [address] [address] Kash Damon MD [address] [place] [phone] documented as of this encounter Visit Diagnoses Not on filedocumented in this encounter Additional Health Concerns Assessment Noted Time PHQ-9 Depression Total Score: 0 08/07/20 21 11:45 AM CDT documented as of this encounter Care Teams Knifer Up Relationship Specialty Start Date End Date Kash Damon MD [address] [place] [address] PCP - General 03/06/16 documented as of this encounter
--- OUTSIDE RECORDS SUMMARY | 2025-03-17 01:24 | XMS_ITS | Encounter Summary ---
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
--- OUTSIDE RECORDS SUMMARY | 2025-03-17 01:24 | XMS_ITS | Encounter Summary ---
Author Organization [facility] Address [address] [place] [address] Care Team Providers Care Bag Turner Name Role Phone Ted Morataya MD Primary Care Provider Encounter Details Date Type Department Care Team (Late st Contact Info) Description 02/06/2020 Lab Requisition [facility] DermPath Lab [address] [place] [address] Kieran Smith MD [address] [place] [address] Social History Tobacco Use Types Packs/Day Years Used Date Smoking Tobacco: Never Assessed Comments Unknown Sex and Gender Information Value Date Recorded Sex Assigned at Not on file 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 Gender Identity Not on file Sexual Orientation Not on file documented as of this encounter Plan of Treatment Not on file documented as of this encounter Procedures Procedure Name Priority Date/Time Associated Diagnosis Comments DERMATOPATHOLOGY Routine 02/05/2020 12:0 0 AM CDT documented in this encounter Results * DERMATOPATHOLOGY (02/05/2020 12:00 AM CDT) Case Report Dermatopathology Report Case: [id number] Authorizing Provider: Kieran Smith MD Collected: 02/05/2020 12:00 AM Ordering Location: [facility] DermPath Lab Received: 02/06/2020 12:18 PM Pathologist: [...] VERRUCOUS KERATOSIS, INFLAMED (L82.1) 0 1:35 PM T DERMATOPATHOLOGY LABORATORY Clinical History A-C: R/O ISK, SK, HAK, Schroeder's, prurigo nodules. 0 1:35 PM CDT DERMATOPATHOLOGY LABORATORY Gross Description Specimen A: Received is one formalin filled container labeled with the patient's name and designated left dorsal hand thumb web. The specimen consists of a shave biopsy measuring 8w0n8pf. Jar 0. Specimen B: Received is one formalin filled container labeled with the patient's name and designated right superior lateral calf. The specimen consists of a shave biopsy measuring [id number]. Jar 0. Specimen C: Received is one formalin filled container labeled with the patient's name and designated left superior anterior pretibia. The specimen consists of a shave biopsy measuring [id number]. Jar 0. 0 1:35 PM CDT DERMATOPATHOLOGY [...] characteristic determined by the Dermatopathology Laboratory at [facility], directed by Dr. Mio Rogers. These tests need not be, and therefore are not, approved by the [place] Food and Drug Administration. The tests are used for clinical purposes. Billing Codes Specimen Charges Stain Charges 88107 31135 47021 1 1 1 0 1:35 PM CDT DERMATOPATHOLOGY LABORATORY Embedded Images 0 1:35 PM CDT DERMATOPATHOLOGY LABORATORY Pathology/Cytology TISSUE SPECIMEN FROM SKIN / Unknown 02/05/2020 02/06/2020 12:18 PM CDT Miscellaneous samples (specimen) TISSUE SPECIMEN FROM SKIN / Unknown 02/05/2020 02/06/2020 12:18 PM CDT Miscellaneous samples (specimen) TISSUE SPECIMEN FROM SKIN / Unknown 02/05/2020 02/06/2020 12:18 PM CDT Kieran Smith MD LAB - PATHOLOGY/CYTOLOGY ORD ERABLES Final Result DERMATOPATHOLOGY LABORATORY [facility] - Department of Dermatology [address] [place] [address] 5[address] Floor Lab [address] [phone] documented in this encounter Visit Diagnoses Not on filedocumented in this encounter Care Teams Bag Turner Relationship Specialty Start Date End Date Ted Morataya MD [address] [place] [address] PCP - General 06/13/18 documented as of this encounter
--- OUTSIDE RECORDS SUMMARY | 2025-03-17 01:24 | XMS_ITS | Encounter Summary ---
Author Organization [facility] Address [address] [place] [address] Care Team Providers Care Web Content Director Name Role Phone Kash Damon MD Primary Care Provider [phone] Encounter Details Date Type Department Care Team (Latest Contact Info) Description 02/22/2025 Results Follow-Up [facility] Family & Internal Medicine [address] [address] Kash Damon MD [address] [place] [address] [phone] URINALYSIS, COMPREHENSIVE METABOLIC PANEL, URIC ACID BLOOD, [...] 03/01/2025 11:00 AM Kash Damon MD [id number] documented in this encounter Plan of Treatment Upcoming Encounters Date Type Department Care Team (Late st Contact Info) Description 09/03/2025 10:20 AM RAMP SERVICE AGENT Office Visit [facility] Family & Internal Medicine [address] [address] Kash Damon MD [address] [place] [phone] documented as of this encounter Visit Diagnoses Not on filedocumented in this encounter Additional Health Concerns Assessment Noted Time PHQ-9 Depression Total Score: 0 08/07/20 11:45 AM CDT documented as of this encounter Care Teams Web Content Director Relationship Specialty Start Date End Date Kash Damon MD [address] [place] [address] PCP - General 03/06/16 documented as of this encounter
--- NOTE | 2025-03-17 02:09 | ED.GENADULT ---
HPI - General Adult General Chief complaint: Unspecified <DEAN Fischer Last Filed: 03/17/25 03:36> Stated complaint: NIHSS/FAST neg-tingling left side <DEAN Fischer Last Filed: 03/17/25 03:36> Time Seen by Provider: 03/17/25 00:55 <DEAN Fischer Last Filed: 03/17/25 03:36> Source: patient <DEAN Fischer Last Filed: 03/17/25 03:36> Mode of arrival: ambulatory <DEAN Fischer Filed: 03/17/25 03:36> Limitations: no limitations <DEAN Fischer Filed: 03/17/25 03:36> History of Present Illness HPI narrative: Patient is a 74 y/o female who presents to the ED with c/o tingling to her L sided body. Patient reports around 10pm tonight while watching TV, she developed tingling/numbness sensation in her L leg. States it began to radiate up her left leg and into her L arm and eventually into her L sided face/tongue. She then prompted here for further evaluation. She notes previous hx of TIA in 2021, and states sx's presented similarly. Patient does not take any aspirin or other anticoagulations. She does feel her left leg is slightly weaker than the R. Denies weakness of arm. Denies slurred speech, ESQUEDA, vision changes, confusion, dizziness/lightheadedness, CP, SOB, palpitations. <DEAN Fischer Last Filed: 03/17/25 03:36> Related Data Home medications: Home Medications Medication Instructions Recorded Confirmed Last Taken Type calcium 500 mg (as 1 tablet PO DAILY 09/18/19 03/17/25 03/16/25 History carbonate)-vitamin D3 3.125 mcg (125 unit) tablet folic acid 0.8 mg capsule 0.8 mg PO DAILY 09/18/19 03/17/25 03/16/25 History denosumab 60 mg/mL subcutaneous 60 mg subcut [id number] 11/27/21 07/10/22 Unknown History syringe (Prolia) metoprolol tartrate 25 mg tablet 25 mg PO BID 11/27/21 03/17/25 03/16/25 History multivitamin 1 tablet PO DAILY 11/27/21 03/17/25 03/16/25 History abatacept 87.5 mg/0.7 mL mg subcut MONTHLY 07/10/22 03/14/25 History subcutaneous syringe (Orencia) <Carla Valera PA-C - Last Filed: 03/17/25 03:36> Allergies/adverse reactions: Allergies Allergy/AdvReac Type Severity Reaction Status Date / Time Quinolones Allergy Mild SOB, CHEST Verified 03/16/25 23:01 PRESSURE trimethoprim Allergy Mild SOB, CHEST Verified 03/16/25 23:01 PRESSURE erythromycin base Allergy Unknown Unknown Verified 03/16/25 23:01 latex Allergy Unknown Rash Verified 03/16/25 23:01 nickel Allergy Unknown Rash Verified 03/16/25 23:01 Penicillins Allergy Unknown Rash Verified 03/16/25 23:01 Sulfa (Sulfonamide Allergy Unknown Unknown Verified 03/16/25 23:01 Antibiotics) <Carla Valera PA-C - Last Filed: 03/17/25 03:36> Review of Systems Review of Systems: All systems reviewed & are unremarkable except as noted in HPI. <Carla Valera PA-C - Last Filed: 03/17/25 03:36> All systems reviewed & are unremarkable except as noted in HPI and below <Carla Valera PA-C - Last Filed: 03/17/25 03:36> [facility] Past Medical History Medical History: Medical History Memory loss <Carla Valera PA-C - Last Filed: 03/17/25 03:36> Surgical History Surgical History: Surgical History Status post hysterectomy with oophorectomy <Carla Valera PA-C - Last Filed: 03/17/25 03:36> Family History Family History: Family History Father Diabetes mellitus Family history of Alzheimer's disease Sibling Family history of migraine headaches Family history of malignant neoplasm of brain Mother Family history of Alzheimer's disease <Carla Valera PA-C - Last Filed: 03/17/25 03:36> Social History Social History: Social History Smoking packs per day: 1 Smoking cigarettes per day: 20.0 Years smoked: 30 Smoking pack-years: 30.00 Smoking status: Former smoker Tobacco type: cigarettes Second hand tobacco smoke exposure: Yes Smoking end date: 11/01/07 Alcohol intake: current Drinks per week: 1 Substance use: never Substance use type: does not use Do You Feel Safe in your Home?: Yes Lack of Transportation: No Lack of Food: Never True Current Housing: I Have Housing Concerned About Future Housing: No Difficulty Paying Gas/Electric Bills: No Difficulty Paying for Meds: No Currently Unemployed: No Education: High School Diploma/GED Difficulty w/ Childcare or Family Care: No Living arrangements: with family Occupation/Education: retired Gender identity (if verbalized by the patient): Female Sexual Orientation (if Verbalized by the Patient): Straight or Heterosexual Spiritual care concerns: No <Carla Valera PA-C - Last Filed: 03/17/25 03:36> Exam Narrative: GENERAL: Elderly but well appearing, thin, non-toxic, in no acute distress. HEAD: Normocephalic, atraumatic. EYES: PERRL/EOMI, conjunctivae clear bilaterally. No nystagmus. NECK: Supple. No meningeal signs. RESPIRATORY: Airway patent, respirations nonlabored. Clear to auscultation bilaterally, no rales, rhonchi, wheezing. CARDIOVASCULAR: Regular rate and rhythm without murmurs, rubs, or gallops. Peripheral pulses 2+ and equal bilaterally. MUSCULOSKELETAL: Moves all extremities. No gross deformities. SKIN: Warm, dry, normal color. No rashes. NEURO: A&O X3. Speech clear. Follows commands. CN II-XII intact. Sensation subjectively decreased in left arm and left leg. Steady gait. No ataxic movements. Strength 5/5 in upper and lower extremities bilaterally, potentially slightly decreased in L leg to resistance. [id number] and [id number] testing intact bilaterally. No pronator drift. Equal it teacher strength bilaterally. PSYCHIATRIC: Appropriate mood and affect. Normal interaction. <Carla Valera PA-C - Last Filed: 03/17/25 03:36> Course OPHTHALMIC NURSE/PA Physician Supervision This visit was performed by both a physician and an APC. I performed all aspects of the MDM as documented. Patient admitted to the hospital for MRI an observation of her TIA symptoms. Patient remains asymptomatic at this time and hemodynamically stable. She was admitted to telemetry monitored bed after discussion with the hospitalist service. <Chester Uribe MD - Last Filed: 03/17/25 07:54> Vital Signs Vital signs: Vital Signs Temperature 36.6 C 03/16/25 23:10 Pulse Rate 61 03/16/25 23:10 Respiratory Rate 16 03/16/25 23:10 Blood Pressure 121/71 03/16/25 23:10 Pulse Oximetry 94 03/16/25 23:10 Oxygen Delivery Room Air 03/16/25 23:10 Temperature 36.0 C L 03/17/25 06:00 Pulse Rate 69 03/17/25 06:00 Respiratory Rate 18 03/17/25 06:00 Blood Pressure 149/97 H 03/17/25 06:00 Pulse Oximetry 98 03/17/25 06:00 Oxygen Delivery Room Air 03/16/25 23:10 <Carla Valera PA-C - Last Filed: 03/17/25 03:36> Vital Signs Temperature 36.6 C 03/16/25 23:10 Pulse Rate 61 03/16/25 23:10 Respiratory Rate 16 03/16/25 23:10 Blood Pressure 121/71 03/16/25 23:10 Pulse Oximetry 94 03/16/25 23:10 Oxygen Delivery Room Air 03/16/25 23:10 Temperature 36.0 C L 03/17/25 06:00 Pulse Rate 69 03/17/25 06:00 Respiratory Rate 18 03/17/25 06:00 Blood Pressure 149/97 H 03/17/25 06:00 Pulse Oximetry 98 03/17/25 06:00 Oxygen Delivery Room Air 03/16/25 23:10 <Chester Uribe MD - Last Filed: 03/17/25 07:54> Medical Decision Making MDM Narrative Medical decision making narrative: Patient presented to ED with tingling/paresthesias to left-sided body that began approximately 1 hour prior to arrival. I was called to triage for stroke stop. Vital signs are stable upon arrival. Patient is in no acute distress. Initial neurologic exam with subjective decreased sensation to LUE and LLE, slight weakness to L leg. Patient was sent as STROKE STOP to CT scanner. CT brain clear. CTA of head and neck also unremarkable. No LVO. Mild atherosclerotic changes of left carotid artery, otherwise atheromatous disease. No significant carotid stenosis. Chest x-ray is clear. EKG with normal sinus rhythm, no concerning ST changes. Basic laboratory studies are otherwise unremarkable. BG WNL. Trop undetectable. On re-evaluation, patient reports that her symptoms have completely resolved. Symptoms lasted approximately 2 hours. Patient feels back to her baseline. Feel symptoms most consistent with TIA. Patient does report previous history of TIA in 2021. She was evaluated by Neurology at that time. She no longer takes aspirin. She is not on any statins. Denies ever being on Plavix. History of rheumatoid arthritis, on Orencia infusions. No other significant risk factors. Discussed case with DILLON Ramos, hospitalist, accepted patient for admission for TIA workup. Patient in agreement with plan and need for admission. Patient is aware that we do not have Neurology on-call at this time it. Discussed risks and benefits of being admitted here without neurology. Patient voiced understanding. She is in agreement with admission. MRI ordered for am. Patient started on asa and lipitor in the ED. <Carla Valera PA-C - Last Filed: 03/17/25 03:36> Medical Records Medical records reviewed: Yes I reviewed the external patient's medical records. <Carla Valera PA-C - Last Filed: 03/17/25 03:36> Vital Signs Vital Signs: Vital Signs Temperature 36.6 C 03/16/25 23:10 Pulse Rate 61 03/16/25 23:10 Respiratory Rate 16 03/16/25 23:10 Blood Pressure 121/71 03/16/25 23:10 Pulse Oximetry 94 03/16/25 23:10 Oxygen Delivery Room Air 03/16/25 23:10 Temperature 36.0 C L 03/17/25 06:00 Pulse Rate 69 03/17/25 06:00 Respiratory Rate 18 03/17/25 06:00 Blood Pressure 149/97 H 03/17/25 06:00 Pulse Oximetry 98 03/17/25 06:00 Oxygen Delivery Room Air 03/16/25 23:10 <Carla Valera PA-C - Last Filed: 03/17/25 03:36> Vital Signs Temperature 36.6 C 03/16/25 23:10 Pulse Rate 61 03/16/25 23:10 Respiratory Rate 16 03/16/25 23:10 Blood Pressure 121/71 03/16/25 23:10 Pulse Oximetry 94 03/16/25 23:10 Oxygen Delivery Room Air 03/16/25 23:10 Temperature 36.0 C L 03/17/25 06:00 Pulse Rate 69 03/17/25 06:00 Respiratory Rate 18 03/17/25 06:00 Blood Pressure 149/97 H 03/17/25 06:00 Pulse Oximetry 98 03/17/25 06:00 Oxygen Delivery Room Air 03/16/25 23:10 <Chester Uribe MD - Last Filed: 03/17/25 07:54> Lab Data Lab results reviewed: Yes I reviewed the patient's lab results. <Carla Valera PA-C - Last Filed: 03/17/25 03:36> Result diagrams: 03/16/25 23:25 03/16/25 23:25 <DEAN Fischer Last Filed: 03/17/25 03:36> Labs: Lab Results 03/16/25 03/16/25 03/17/25 Range/Units 23:23 23:25 00:59 WBC 6.2 (4.5-10.0) K/mm3 RBC 4.28 (4.2-5.4) M/mm3 Hgb 13.3 (12.0-15.0) g/dL Hct 41.4 (37.0-47.0) % MCV 96.7 (80-100) fl MCH 31.1 (26-34) pg MCHC 32.1 (32-36) g/dl RDW 13.2 (11.5-14.5) % Plt Count 159 (150-375) k/mm3 MPV 9.4 (7.4-10.4) fl Immature Gran % (Auto) 0.3 (0-0.5) % Neut % (Auto) 51.5 (45.5-73.1) % Lymph % (Auto) 33.4 (18.3-44.2) % [place] % (Auto) 9.7 H (2.6-8.5) % Eos % (Auto) 4.5 H (0-4.4) % Baso % (Auto) 0.6 (0.2-1.2) % Lymph # (Auto) 2.07 (0.9-3.2) K/mm3 [place] # (Auto) 0.6 (0.1-0.6) K/mm3 Eos # (Auto) 0.3 (0-0.3) K/mm3 Baso # (Auto) 0.0 (0.0-0.1) K/mm3 Abs Immat Gran (auto) 0.02 (0.00-0.031) K/mm3 Absolute Neuts (auto) 3.2 (1.3-6.7) K/mm3 Absolute Nucleated RBC 0.000 (0.0-0.012) K/mm3 Nucleated RBC % 0.0 (0.0-0.2) % PT 13.4 (11.1-14.7) Seconds INR 1.0 APTT 32.0 (22.3-36.8) Seconds Sodium 140 (137-145) mmol/L Potassium 3.6 (3.4-5.0) mmol/L Chloride 105 (98-107) mmol/L Carbon Dioxide 29 (22-30) mmol/L Anion Gap 6 (4-12) mmol/L BUN 17 (7-17) mg/dL Creatinine 0.78 (0.7-1.0) mg/dL Estim Creat Clear Calc 46 ml/min Estimated GFR > 60 (59 - ) Glucose 107 (65-110) mg/dL POC Capillary Glucose 112 H 116 H (65-105) mg/dl Calcium 9.3 (8.4-10.2) mg/dL Total Bilirubin 0.3 (0.2-1.3) mg/dL AST 36 (14-36) U/L ALT 20 (6-35) U/L Alkaline Phosphatase 67 (38-126) U/L Troponin I < 0.012 (0.000-0.034) ng/mL Total Protein 7.0 (6.3-8.2) g/dL Albumin 4.2 (3.5-5.1) g/dL <Carla Valera PA-C - Last Filed: 03/17/25 03:36> Lab Results 03/16/25 03/16/25 03/17/25 Range/Units 23:23 23:25 00:59 WBC 6.2 (4.5-10.0) K/mm3 RBC 4.28 (4.2-5.4) M/mm3 Hgb 13.3 (12.0-15.0) g/dL Hct 41.4 (37.0-47.0) % MCV 96.7 (80-100) fl MCH 31.1 (26-34) pg MCHC 32.1 (32-36) g/dl RDW 13.2 (11.5-14.5) % Plt Count 159 (150-375) k/mm3 MPV 9.4 (7.4-10.4) fl Immature Gran % (Auto) 0.3 (0-0.5) % Neut % (Auto) 51.5 (45.5-73.1) % Lymph % (Auto) 33.4 (18.3-44.2) % [place] % (Auto) 9.7 H (2.6-8.5) % Eos % (Auto) 4.5 H (0-4.4) % Baso % (Auto) 0.6 (0.2-1.2) % Lymph # (Auto) 2.07 (0.9-3.2) K/mm3 [place] # (Auto) 0.6 (0.1-0.6) K/mm3 Eos # (Auto) 0.3 (0-0.3) K/mm3 Baso # (Auto) 0.0 (0.0-0.1) K/mm3 Abs Immat Gran (auto) 0.02 (0.00-0.031) K/mm3 Absolute Neuts (auto) 3.2 (1.3-6.7) K/mm3 Absolute Nucleated RBC 0.000 (0.0-0.012) K/mm3 Nucleated RBC % 0.0 (0.0-0.2) % PT 13.4 (11.1-14.7) Seconds INR 1.0 APTT 32.0 (22.3-36.8) Seconds Sodium 140 (137-145) mmol/L Potassium 3.6 (3.4-5.0) mmol/L Chloride 105 (98-107) mmol/L Carbon Dioxide 29 (22-30) mmol/L Anion Gap 6 (4-12) mmol/L BUN 17 (7-17) mg/dL Creatinine 0.78 (0.7-1.0) mg/dL Estim Creat Clear Calc 46 ml/min Estimated GFR > 60 (59 - ) Glucose 107 (65-110) mg/dL POC Capillary Glucose 112 H 116 H (65-105) mg/dl Calcium 9.3 (8.4-10.2) mg/dL Total Bilirubin 0.3 (0.2-1.3) mg/dL AST 36 (14-36) U/L ALT 20 (6-35) U/L Alkaline Phosphatase 67 (38-126) U/L Troponin I < 0.012 (0.000-0.034) ng/mL Total Protein 7.0 (6.3-8.2) g/dL Albumin 4.2 (3.5-5.1) g/dL <Chester Uribe MD - Last Filed: 03/17/25 07:54> Imaging Data Attestation: I personally reviewed and interpreted this imaging study as follows: <Carla Valera PA-C - Last Filed: 03/17/25 03:36> Radiologist's impression: ITS Impressions Chest X-Ray 03/17/25 00:13 IMPRESSION: No acute cardiopulmonary pathology. Head CT 03/17/25 00:15 IMPRESSION: No acute intracranial findings. Head/Neck CTA 03/17/25 00:21 IMPRESSION: 1. Normal CTA head. 2. 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 Otherwise, normal CTA of the neck. Percent stenosis per NASCET criteria is 0%. <DEAN Fischer Last Filed: 03/17/25 03:36> ECG Data EKG #1: Attestation: I personally reviewed and interpreted this ECG as follows: <DEAN Fischer Last Filed: 03/17/25 03:36> ECG completion date: 03/17/25 <DEAN Fischer Last Filed: 03/17/25 03:36> ECG completion time: 00:02 <DEAN Fischer Last Filed: 03/17/25 03:36> EKG Interpretation: normal rate (71), sinus rhythm, PVCs and non-specific ST changes <DEAN Fischer Last Filed: 03/17/25 03:36> Discharge Plan Discharge Clinical Impression: TIA (transient ischemic attack), Paresthesia of left arm and leg <DEAN Fischer Last Filed: 03/17/25 03:36> Patient Disposition: Still a Patient <DEAN Fischer Last Filed: 03/17/25 03:36> Condition: Stable <DEAN Fischer Last Filed: 03/17/25 03:36>
[2025-03-17] MEDS: ASPIRIN 81 MG CHEWABLE TABLET 324 MG PO (02:21)
[2025-03-17] MEDS: ATORVASTATIN 40 MG TABLET PO (02:22)
--- NOTE | 2025-03-17 04:08 | ADMGEN ---
This patient, Jory A Bone, was admitted to 3 [facility] Surg Room 319-01. Patient/family oriented to hospital policies and general routines including ID bracelet, bed and alarms, visiting hours, pain management, procedures, bathroom and other care routines, personal items, smoking policy, room service/diet, and visiting hours. Information on how to activate the Rapid Response Team has been discussed. Patient/Family are encouraged to report perceived risks to care and to ask questions if they do not understand what they are told or what they should do.
[2025-03-17] MEDS: ASPIRIN 81 MG CHEWABLE TABLET PO (09:19)
--- NOTE | 2025-03-17 11:11 | P.HP_ITS ---
H&P: HPI History of Present Illness Date/Time: 03/17/25 11:11 Chief Complaint: 74 yo female with PMH of RA who presented to the ER on account left sided numbness. Patien noted she was in her usual state of health until 10 pm last night when she noticed left sided weakness, otherwise denies chest pain, SOB, abd pain, Vomiting and diarrhea. ER eval notable vital sign unremarkable, Labs unremarkable, CT head, CTA head and neck and CXR unremarkable. patient. Started on Aspirin and Lipitor. Narrative: All other systems were reviewed and negative except as noted in [place] HPI above. [facility] Past Medical History Medical History Memory loss Surgical History Surgical History Status post hysterectomy with oophorectomy Family History Family History Father Diabetes mellitus Family history of Alzheimer's disease Sibling Family history of migraine headaches Family history of malignant neoplasm of brain Mother Family history of Alzheimer's disease Social History Social History Smoking packs per day: 1 Smoking cigarettes per day: 20.0 Years smoked: 30 Smoking pack-years: 30.00 Smoking status: Former smoker Tobacco type: cigarettes Second hand tobacco smoke exposure: Yes Smoking end date: 11/01/07 Alcohol intake: current Drinks per week: 1 Substance use: never Substance use type: does not use Do You Feel Safe in your Home?: Yes Lack of Transportation: No Lack of Food: Never True Current Housing: I Have Housing Concerned About Future Housing: No Difficulty Paying Gas/Electric Bills: No Difficulty Paying for Meds: No Currently Unemployed: No Education: High School Diploma/GED Difficulty w/ Childcare or Family Care: No Living arrangements: with family Occupation/Education: retired Gender identity (if verbalized by the patient): Female Sexual Orientation (if Verbalized by the Patient): Straight or Heterosexual Spiritual care concerns: No Meds Home Medications and Allergies Home Medications Medication Instructions Recorded Confirmed Type calcium 500 mg (as 1 tablet PO DAILY 09/18/19 03/17/25 History carbonate)-vitamin D3 3.125 mcg (125 unit) tablet folic acid 0.8 mg capsule 0.8 mg PO DAILY 09/18/19 03/17/25 History denosumab 60 mg/mL subcutaneous 60 mg subcut [id number] 11/27/21 03/17/25 History syringe (Prolia) metoprolol tartrate 25 mg tablet 25 mg PO BID 11/27/21 03/17/25 History multivitamin 1 tablet PO DAILY 11/27/21 03/17/25 History gabapentin 300 mg capsule 300 mg PO TID #90 caps 12/12/21 03/17/25 Rx abatacept 87.5 mg/0.7 mL 87.5 mg subcut MONTHLY 07/10/22 03/17/25 History subcutaneous syringe (Orencia) aspirin 81 mg chewable tablet 81 mg PO DAILY #30 tabs 10/29/22 03/17/25 Rx riboflavin (vitamin B2) 400 mg 400 mg PO DAILY #30 tabs 10/29/22 03/17/25 Rx tablet Allergies Allergy/AdvReac Type Severity Reaction Status Date / Time Quinolones Allergy Mild SOB, CHEST Verified 03/16/25 23:01 PRESSURE trimethoprim Allergy Mild SOB, CHEST Verified 03/16/25 23:01 PRESSURE erythromycin base Allergy Unknown Unknown Verified 03/16/25 23:01 latex Allergy Unknown Rash Verified 03/16/25 23:01 nickel Allergy Unknown Rash Verified 03/16/25 23:01 Penicillins Allergy Unknown Rash Verified 03/16/25 23:01 Sulfa (Sulfonamide Allergy Unknown Unknown Verified 03/16/25 23:01 Antibiotics) Vital Signs Vital Signs - 24 hr 03/16/25 23:10 03/16/25 23:48 03/17/25 03:46 Temperature 97.8 F Pulse Rate 61 82 66 Respiratory Rate 16 19 16 Blood Pressure 121/71 145/95 H 141/89 H Pulse Oximetry 94 100 98 Oxygen Delivery Room Air 03/17/25 06:00 03/17/25 08:39 Temperature 96.8 F L 97.9 F Pulse Rate 69 60 Respiratory Rate 18 16 Blood Pressure 149/97 H 134/89 Pulse Oximetry 98 98 Oxygen Delivery Exam Narrative: General: alert and comfortable Eyes: EOMI, PERRLA ENNT External ears normal, Neck is supple, no masses, Respiratory systems: Clear to auscultation Cardiovascular S1, S2, normal rhythm, no murmur, rub, or gallop; no thrill or palpable murmurs on palpation. Gastrointestinal: soft, non-tender, and non-distended abdomen with no masses; BS present Skin: no rash, lesions, ulcerations, subcutaneous nodules or induration Musculoskeletal: no abnormality and no tenderness, normal ROM Neurologic: Alert and oriented x3, appears to have 4/5 power LUE, otherwise normal Mental Status Exam: normal affect H&P: Results Labs Labs: Short CBC 03/16/25 Range/Units 23:25 WBC 6.2 (4.5-10.0) K/mm3 Hgb 13.3 (12.0-15.0) g/dL Hct 41.4 (37.0-47.0) % Plt Count 159 (150-375) k/mm3 BMP 03/16/25 23:25 Sodium 140 Potassium 3.6 Chloride 105 Carbon Dioxide 29 BUN 17 Creatinine 0.78 Glucose 107 Calcium 9.3 Cardiac Enzymes 03/16/25 Range/Units 23:25 Troponin I < 0.012 (0.000-0.034) ng/mL Liver Function 03/16/25 Range/Units 23:25 Total Bilirubin 0.3 (0.2-1.3) mg/dL AST 36 (14-36) U/L ALT 20 (6-35) U/L Alkaline Phosphatase 67 (38-126) U/L Albumin 4.2 (3.5-5.1) g/dL Assessment and Plan Assessment and plan (1) TIA (transient ischemic attack): Code(s): G45.9 - Transient cerebral ischemic attack, unspecified Status: Acute Plan Left sided numbness CT head, CTA head and neck and CXR unremarkable MRI brain and ECHO pendign PT/OT/ST On Aspirin and Lipitor Rheumatoid arthritis continue home meds DVT prophylaxis on Sq lovenox Full code Son Sujit Angeles, Surrogate decision maker
[2025-03-17] MEDS: LORazepam INJ (*CRX) 2 MG/ML VIAL 0.5 MG IV PUSH (11:27)
--- NOTE | 2025-03-17 12:11 | PCSTNOTE ---
Speech therapy attempted to see pt. for speech-language evaluation on this date. Pt. in MRI. Will attempt morning of 03/18/25.
[2025-03-18] VITALS (8 sets, daily range): BP systolic 115–124; BP diastolic 67–88; PULSE 65–97; RESP 16–18; TEMP 35.9–36.6; O2SAT 96–100
[2025-03-18 06:28] LABS: Basophils Percent Auto 0.7 % (0.2-1.2); Eosinophils Absolute Auto 0.2 K/mm3 (0-0.3); Eosinophils Percent Auto 2.8 % (0-4.4); Hematocrit 42.3 % (37.0-47.0); Hemoglobin 13.3 g/dL (12.0-15.0); Immature Granulocyte Absolute 0.03 K/mm3 (0.00-0.031); Immature Granulocyte Percent A 0.5 % (0-0.5); Lymphocytes Absolute Auto 1.28 K/mm3 (0.9-3.2); Lymphocytes Percent Auto 22.2 % (18.3-44.2); Mean Corpuscular HGB Conc 31.4 g/dl (32-36); Mean Corpuscular Volume 98.6 fl (80-100); Mean Platelet Volume 9.4 fl (7.4-10.4); Monocytes Absolute Auto 0.5 K/mm3 (0.1-0.6); Monocytes Percent Auto 7.8 % (2.6-8.5); Neutrophils Absolute Auto 3.8 K/mm3 (1.3-6.7); Platelet Count Result 139 k/mm3 (150-375); Red Blood Count 4.29 M/mm3 (4.2-5.4); Red Cell Distribution Width 13.2 % (11.5-14.5); White Blood Count 5.8 K/mm3 (4.5-10.0)
[2025-03-18 06:35] LABS: Alanine Aminotransferase 18 U/L (6-35); Albumin Level 3.8 g/dL (3.5-5.1); Alkaline Phosphatase 51 U/L (38-126); Anion Gap 6 mmol/L (4-12); Aspartate Amino Transferase 33 U/L (14-36); Bilirubin,Total 0.7 mg/dL (0.2-1.3); Blood Urea Nitrogen 15 mg/dL (7-17); Calcium 8.9 mg/dL (8.4-10.2); Carbon Dioxide 28 mmol/L (22-30); Chloride 104 mmol/L (98-107); Cholesterol 195 mg/dL (0-200); Estimated CRCL calculation 44 ml/min; Estimated Glomerular Filt Rate > 60; Glucose 102 mg/dL (65-110); HDL Direct 77 mg/dL; Magnesium 2.1 mg/dL (1.6-2.3); Potassium 3.6 mmol/L (3.4-5.0); Sodium 138 mmol/L (137-145); Triglycerides 78 mg/dL (<150)
[2025-03-18 06:42] LABS: LDL Cholesterol Direct 77 mg/dL
[2025-03-18 06:45] LABS: Hemoglobin A1C 5.1 % (<5.7)
[2025-03-18] MEDS: ENOXAPARIN 40 MG/0.4 ML SYRINGE SUB-Q (08:14)
[2025-03-18] MEDS: ASPIRIN 81 MG CHEWABLE TABLET PO (08:14)
--- NOTE | 2025-03-18 11:50 | P.PNIM_ITS ---
Progress Note: A&P Assessment and Plan (1) TIA (transient ischemic attack): Code(s): G45.9 - Transient cerebral ischemic attack, unspecified Status: Acute Plan Left sided numbness CT head, CTA head and neck and CXR unremarkable MRI brain normal exam ECHO pending PT/OT/ST On Aspirin and Lipitor Rheumatoid arthritis continue home meds DVT prophylaxis on Sq lovenox Full code Awaiting ECHO for discharge Subjective Date/time seen: 03/18/25 11:50 Interval history: Comfortable at bedside Exam Narrative: General: alert and comfortable Eyes: EOMI, PERRLA ENNT External ears normal, Neck is supple, no masses, Respiratory systems: Clear to auscultation Cardiovascular S1, S2, normal rhythm, no murmur, rub, or gallop; no thrill or palpable murmurs on palpation. Gastrointestinal: soft, non-tender, and non-distended abdomen with no masses; BS present Skin: no rash, lesions, ulcerations, subcutaneous nodules or induration Musculoskeletal: no abnormality and no tenderness, normal ROM Neurologic: Alert and oriented x3, appears to have 4/5 power LUE, otherwise normal Mental Status Exam: normal affect Objective Data Vital Signs Vital Signs: Vital Signs - 24 hr 03/17/25 13:11 03/17/25 13:33 03/17/25 14:00 Temperature 96.8 F L Pulse Rate 77 Respiratory Rate 16 Blood Pressure 112/89 Pulse Oximetry 98 Oxygen Delivery Room Air Room Air 03/17/25 16:00 03/17/25 20:00 03/17/25 21:39 Temperature 97.8 F Pulse Rate 64 79 68 Respiratory Rate 16 Blood Pressure 137/88 Pulse Oximetry 96 Oxygen Delivery 03/18/25 00:00 03/18/25 04:00 03/18/25 06:00 Temperature 97.9 F Pulse Rate 65 71 97 Respiratory Rate 16 Blood Pressure 116/82 Pulse Oximetry 96 Oxygen Delivery 03/18/25 08:00 Temperature Pulse Rate Respiratory Rate Blood Pressure Pulse Oximetry Oxygen Delivery Room Air Intake/Output Intake/Output: Intake & Output 03/15/25 03/16/25 03/17/25 03/18/25 23:59 23:59 23:59 23:59 Intake Total 100 240 Balance 100 240 Meds/Results Medications: Active Medications Generic Name Dose Route Start Last Admin Trade Name Freq PRN Reason Stop Dose Admin Acetaminophen 650 mg 05/17/25 02:45 Acetaminophen 325 Mg Tablet PO Q4H PRN Mild Pain (1-3) or Fever Aspirin 81 mg 03/17/25 08:00 03/18/25 08:14 Aspirin 81 Mg Chewable Tablet PO 81 mg DAILY@0800 JL Administration Dextrose 12.5 gm 03/17/25 02:45 Dextrose 50% 25 Gm/50 Ml Syringe IV PUSH PRN PRN Hypoglycemia Protocol Enoxaparin Sodium 40 mg 03/18/25 09:00 03/18/25 08:14 Enoxaparin 40 Mg/0.4 Ml Syringe SUB-Q 40 mg DAILY JL Administration Glucagon 1 mg 03/17/25 02:45 Glucagon For Inj 1 Mg Vial IM PRN PRN Hypoglycemia Protocol Glucose 15 gm 03/17/25 02:45 Glucose Oral Gel 15 Gm Of Glucse In 37.5 Gm Tube PO PRN PRN Hypoglycemia Protocol Dextrose 1,000 mls @ 100 mls/hr 03/17/25 02:45 Dextrose 5% 1,000 Ml IVPB PRN PRN Hypoglycemia Protocol Perflutren Lipid Microsphere 0 ml 03/17/25 11:20 Perflutren Lipid Microspheres 1.5 Ml Vial Diluted To 10 Ml Total Volume IV PUSH 03/20/25 11:20 ONCE PRN adequate visualization Protocol Radiology Results: ITS Impressions Chest X-Ray 03/17/25 00:13 IMPRESSION: No acute cardiopulmonary pathology. Head CT 03/17/25 00:15 IMPRESSION: No acute intracranial findings. Head/Neck CTA 03/17/25 00:21 IMPRESSION: 1. Normal CTA head. 2. 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 Otherwise, normal CTA of the neck. Percent stenosis per NASCET criteria is 0%. Brain MRI 03/17/25 13:01 IMPRESSION: 1. Normal aging brain. No acute intracranial process or abnormally enhancing brain lesions. Labs Labs: Laboratory Results - last 24 hr 03/18/25 05:53 WBC 5.8 RBC 4.29 Hgb 13.3 Hct 42.3 MCV 98.6 MCH 31.0 MCHC 31.4 L RDW 13.2 Plt Count 139 L MPV 9.4 Immature Gran % (Auto) 0.5 Neut % (Auto) 66.0 Lymph % (Auto) 22.2 [place] % (Auto) 7.8 Eos % (Auto) 2.8 Baso % (Auto) 0.7 Lymph # (Auto) 1.28 [place] # (Auto) 0.5 Eos # (Auto) 0.2 Baso # (Auto) 0.0 Abs Immat Gran (auto) 0.03 Absolute Neuts (auto) 3.8 Absolute Nucleated RBC 0.000 Nucleated RBC % 0.0 Sodium 138 Potassium 3.6 Chloride 104 Carbon Dioxide 28 Anion Gap 6 BUN 15 Creatinine 0.84 Estim Creat Clear Calc 44 Estimated GFR > 60 Glucose 102 Hemoglobin A1c 5.1 Calcium 8.9 Magnesium 2.1 Total Bilirubin 0.7 AST 33 ALT 18 Alkaline Phosphatase 51 Total Protein 6.0 L Albumin 3.8 Triglycerides 78 Cholesterol 195 LDL Cholesterol Direct 77 HDL Direct 77
[2025-03-18] MEDS: ACETAMINOPHEN 325 MG TABLET 650 MG PO (20:41)
[2025-03-19] VITALS: PULSE 78
--- NOTE | 2025-03-19 | ECHO_ITS ---
Patient Info Name: Jory Amaya Bone Age: 74 years : 1950 Gender: Female Ht: 64 in Wt: 119 lbs BSA: 1.56 m2 HR: 93 bpm BP: 122 / 77 mmHg Heart Rhythm: Sinus Rhythm Technical Quality: Good Exam Date: 03/19/2025 2:31 PM Patient Status: I Admit Date: 03/18/2025 Exam Type: CA echo doppler w bubble study Complete two-dimensional, color flow and Doppler transthoracic echocardiogram is performed with agitated saline. Staff Referring Physician: Carla Valera [employer] Recycl[employer] Manager: Roxie Keen Attending Provider: Grayson Moncada Contrast/Agitated Saline Contrast/Ag. Saline: Agitated Saline Amount: 20.00 ml Existing IV Access: Yes IV Access Condition: patent with no signs of infiltration Summary 1. Agitated saline study reveal presence of [id number] shunt. 2. There is normal biventricular size and systolic function. 3. There are no significant valvular abnormalities. Left Ventricle The left ventricle is normal in size and systolic function. The left ventricular ejection fraction is visually estimated to be 60-65%. Right Ventricle The right ventricle is normal in size and systolic function. Left Atria The left atrium is normal size. Right Atria The right atrium is normal size. Atrial Septum Agitated saline study reveal presence of [id number] shunt. Aortic Valve The aortic valve is trileaflet and opens well. There is no aortic regurgitation. Pulmonic Valve Pulmonic valve is not well visualized. There is no color Doppler evidence of pulmonic valve regurgitation. Mitral Valve The mitral valve is normal. There is trace mitral regurgitation. Tricuspid Valve The tricuspid valve is normal. There is mild tricuspid regurgitation. Pericardium/Pleural Pericardium is normal in appearance with no evidence for significant pericardial effusion. Inferior Vena Cava The inferior vena cava is not visualized. Aorta The aortic root is not well visualized. Left Ventricular Outflow Tract Name Value Normal LVOT 2D LVOT Diameter 2.0 cm LVOT Doppler LVOT Peak Velocity 81 cm/s LVOT Peak Gradient 3 mmHg LVOT Mean Gradient 2 mmHg LVOT VTI 15 cm LVOT VTI/AV VTI Ratio 0.7 LVOT Stroke Volume 46 ml LVOT CO 3.5 l/min LVOT CI 2.3 l/min/m2 Pulmonic Valve Name Value Normal RVOT Doppler RVOT Peak Velocity 70 cm/s RVOT Peak Gradient 2 mmHg PV Doppler PV Peak Velocity 78 cm/s PV Peak Gradient 2 mmHg Mitral Valve Name Value Normal MV Diastolic Function MV E Peak Velocity 54 cm/s MV A Peak Velocity 94 cm/s MV E/A 0.6 MV Decel Time (PW) 107 ms MV Annular TDI MV E/e' (Septal) 13.3 MV E/e' (Lateral) 9.9 MV E/e' (Average) 11.6 Tricuspid Valve Name Value Normal TV Regurgitation Doppler TR Peak Velocity 214 cm/s TR Peak Gradient 18 mmHg Estimated PAP/RSVP RA Pressure 10 mmHg <=5 PA Systolic Pressure 28 mmHg <36 RV Systolic Pressure 28 mmHg <36 TV Annular TDI TV Lateral Kiki s' Velocity 11.6 cm/s >=9.5 Aorta Name Value Normal Ascending Aorta Ao Root Diameter (MM) 2.8 cm Ao Root Diam Index (MM) 1.8 cm/m2 Aortic Valve Name Value Normal AV Doppler AV Peak Velocity 127 cm/s AV Peak Gradient 6 mmHg AV Mean Gradient 3 mmHg AV VTI 23 cm AV Area (Cont Eq VTI) 2.0 cm2 >=3.0 AV Area (Cont Eq Loki) 1.9 cm2 AV DI (Loki) 0.64 AV Regurgitation 2D LVOT Area 3.0 cm2 Ventricles Name Value Normal LV Dimensions 2D/MM IVS Diastolic Thickness (2D) 0.9 cm 0.6-1.0 LVID Diastole (2D) 3.8 cm 3.8-5.2 LVIW Diastolic Thickness (2D) 0.8 cm 0.6-0.9 LVID Systole (2D) 2.5 cm 2.2-3.5 LVOT Diameter 2.0 cm LV Mass (2D Cubed) 91.19 g 67.00-162.00 LV Mass Index (2D Cubed) 58 g/m2 43-95 Relative Wall Thickness (2D) 0.41 <=0.42 LV Fractional Shortening/Ejection Fraction 2D/MM LV Fractional Shortening (2D) 34 % 27-45 LV EF (2D Teichholz) 64 % LV Diastolic Volume (4C MOD) 32 ml LV EF (4C MOD) 57 % LV Diastolic Volume (2C MOD) 38 ml LV EF (2C MOD) 67 % LV Diastolic Volume (BP MOD) 35 ml 46-106 LV Diastolic Volume Index (BP MOD) 22 ml/m2 29-61 LV Systolic Volume (BP MOD) 13 ml 14-42 LV Systolic Volume Index (BP MOD) 9 ml/m2 8-24 LV EF (BP MOD) 62 % 54-74 LV Diastolic Length (4C) 5.9 cm LV Systolic Length (4C) 5.0 cm LV Stroke Volume (4C MOD) 18 ml Atria Name Value Normal LA Dimensions LA Dimension (MM) 2.8 cm 2.7-3.8 LA Volume (4C A-L) 28 ml LA Volume (BP A-L) 27 ml RA Dimensions RA Area (4C) 10.0 cm2 <=18.0 Report Signatures
[2025-03-19 04:00] VITALS: PULSE 80
[2025-03-19 05:52] VITALS: BP 122/77; PULSE 93; RESP 16; TEMP 35.8; O2SAT 98
[2025-03-19 06:32] LABS: Basophils Percent Auto 0.5 % (0.2-1.2); Eosinophils Absolute Auto 0.1 K/mm3 (0-0.3); Eosinophils Percent Auto 1.6 % (0-4.4); Hematocrit 42.1 % (37.0-47.0); Hemoglobin 14.1 g/dL (12.0-15.0); Immature Granulocyte Absolute 0.02 K/mm3 (0.00-0.031); Immature Granulocyte Percent A 0.3 % (0-0.5); Lymphocytes Absolute Auto 1.29 K/mm3 (0.9-3.2); Lymphocytes Percent Auto 22.3 % (18.3-44.2); Mean Corpuscular HGB Conc 33.5 g/dl (32-36); Mean Corpuscular Hemoglobin 31.8 pg (26-34); Mean Corpuscular Volume 94.8 fl (80-100); Mean Platelet Volume 9.7 fl (7.4-10.4); Monocytes Absolute Auto 0.4 K/mm3 (0.1-0.6); Monocytes Percent Auto 6.2 % (2.6-8.5); Neutrophils Percent Auto 69.1 % (45.5-73.1); Platelet Count Result 153 k/mm3 (150-375); Red Blood Count 4.44 M/mm3 (4.2-5.4); Red Cell Distribution Width 13.1 % (11.5-14.5); White Blood Count 5.8 K/mm3 (4.5-10.0)
[2025-03-19 06:42] LABS: Alanine Aminotransferase 19 U/L (6-35); Albumin Level 4.1 g/dL (3.5-5.1); Alkaline Phosphatase 60 U/L (38-126); Anion Gap 7 mmol/L (4-12); Aspartate Amino Transferase 34 U/L (14-36); Bilirubin,Total 0.6 mg/dL (0.2-1.3); Blood Urea Nitrogen 15 mg/dL (7-17); Calcium 8.9 mg/dL (8.4-10.2); Carbon Dioxide 27 mmol/L (22-30); Chloride 105 mmol/L (98-107); Estimated CRCL calculation 45 ml/min; Estimated Glomerular Filt Rate > 60; Glucose 110 mg/dL (65-110); Potassium 3.7 mmol/L (3.4-5.0); Sodium 139 mmol/L (137-145)
[2025-03-19 08:00] VITALS: PULSE 73
[2025-03-19] MEDS: ENOXAPARIN 40 MG/0.4 ML SYRINGE SUB-Q (08:43)
[2025-03-19] MEDS: ASPIRIN 81 MG CHEWABLE TABLET PO (08:43)
[2025-03-19] MEDS: ONDANSETRON INJ 4 MG/2 ML VIAL IV PUSH (08:48)
[2025-03-19 12:00] VITALS: PULSE 88
--- NOTE | 2025-03-19 12:08 | P.CONNEU_ITS ---
Assessment and Plan Assessment and plan (1) TIA (transient ischemic attack): Code(s): G45.9 - Transient cerebral ischemic attack, unspecified Status: Acute (2) Rheumatoid arthritis of unspecified site with involvement of other organs and systems: Code(s): M05.60 - Rheumatoid arthritis of unspecified site with involvement of other organs and systems Status: Acute Plan The patient has had a spell in 2021 and another 1 prior to this admission it with the similar presentation with numbness in the left side of the body. She did not have any other unusual symptoms. Her CT angiogram head and neck as well as CT scan of brain did not show any abnormalities. MRI of the brain was also normal. I will suggest to keep her on aspirin 81 mg and Crestor 5 mg a day. Her LDL was 70 and the goal will be to keep it under 65. I shall be glad to see her in my office in 3 months time. I have explained the findings to her from neurologic point of view. Echocardiogram results are awaited and she is already on a cardiac monitoring and I agree with the same. She tends to have some bruising and I wonder if it is due to intermittent courses of treatment with steroids. Hence I will be skeptical in adding clopidogrel to aspirin 81 mg a day. Consult date: 03/19/25 HPI: Jory Angeles is a 74 year old female With history of numbness in the left side of the body lasting for approximately half an hour which led to this admission. In the emergency room she had a CT scan of the brain as well as CT angiogram of the head and neck which did not show any large vessel occlusion or any other structural abnormality. EKG shows regular sinus rhythm. She has not had any further spells. At this time she denies that not have any active symptoms. MRI of the brain was performed which or so did not show any significant abnormality. Echocardiogram is pending. patient has had a spell similar to this about 2-3 years ago for which she was seen by Dr. Trejo and Dr. Jean. The patient also has history of rheumatoid arthritis. She has been taking aspirin 81 mg a day since he had the spell in 2021. She has been on the steroids on and off for rheumatoid arthritis. Review of Systems 2 Review of Systems: All systems reviewed & are unremarkable except as noted in HPI and below PMFSH Past Medical History Medical History Memory loss Surgical History Surgical History Status post hysterectomy with oophorectomy Family History Family History Father Diabetes mellitus Family history of Alzheimer's disease Sibling Family history of migraine headaches Family history of malignant neoplasm of brain Mother Family history of Alzheimer's disease Social History Social History Smoking packs per day: 1 Smoking cigarettes per day: 20.0 Years smoked: 30 Smoking pack-years: 30.00 Smoking status: Former smoker Tobacco type: cigarettes Second hand tobacco smoke exposure: Yes Smoking end date: 11/01/07 Alcohol intake: current Drinks per week: 1 Substance use: never Substance use type: does not use Do You Feel Safe in your Home?: Yes Lack of Transportation: No Lack of Food: Never True Current Housing: I Have Housing Concerned About Future Housing: No Difficulty Paying Gas/Electric Bills: No Difficulty Paying for Meds: No Currently Unemployed: No Education: High School Diploma/GED Difficulty w/ Childcare or Family Care: No Living arrangements: with family Occupation/Education: retired Gender identity (if verbalized by the patient): Female Sexual Orientation (if Verbalized by the Patient): Straight or Heterosexual Spiritual care concerns: No Meds Home Medications and Allergies Home Medications Medication Instructions Recorded Confirmed Type calcium 500 mg (as 1 tablet PO DAILY 09/18/19 03/17/25 History carbonate)-vitamin D3 3.125 mcg (125 unit) tablet folic acid 0.8 mg capsule 0.8 mg PO DAILY 09/18/19 03/17/25 History denosumab 60 mg/mL subcutaneous 60 mg subcut [id number] 11/27/21 03/17/25 History syringe (Prolia) metoprolol tartrate 25 mg tablet 25 mg PO BID 11/27/21 03/17/25 History multivitamin 1 tablet PO DAILY 11/27/21 03/17/25 History gabapentin 300 mg capsule 300 mg PO TID #90 caps 12/12/21 03/17/25 Rx abatacept 87.5 mg/0.7 mL 87.5 mg subcut MONTHLY 07/10/22 03/17/25 History subcutaneous syringe (Orencia) aspirin 81 mg chewable tablet 81 mg PO DAILY #30 tabs 10/29/22 03/17/25 Rx riboflavin (vitamin B2) 400 mg 400 mg PO DAILY #30 tabs 10/29/22 03/17/25 Rx tablet Allergies Allergy/AdvReac Type Severity Reaction Status Date / Time Quinolones Allergy Mild SOB, CHEST Verified 03/16/25 23:01 PRESSURE trimethoprim Allergy Mild SOB, CHEST Verified 03/16/25 23:01 PRESSURE erythromycin base Allergy Unknown Unknown Verified 03/16/25 23:01 latex Allergy Unknown Rash Verified 03/16/25 23:01 nickel Allergy Unknown Rash Verified 03/16/25 23:01 Penicillins Allergy Unknown Rash Verified 03/16/25 23:01 Sulfa (Sulfonamide Allergy Unknown Unknown Verified 03/16/25 23:01 Antibiotics) Vital Signs Vital Signs - 24 hr 03/18/25 14:00 03/18/25 16:00 03/18/25 20:00 Temperature 97.5 F L Pulse Rate 67 72 68 Respiratory Rate 18 Blood Pressure 124/67 Pulse Oximetry 100 Oxygen Delivery 03/18/25 20:52 03/19/25 00:00 03/19/25 04:00 Temperature 96.7 F L Pulse Rate 96 78 80 Respiratory Rate 16 Blood Pressure 115/88 Pulse Oximetry 98 Oxygen Delivery 03/19/25 05:52 03/19/25 08:00 Temperature 96.5 F L Pulse Rate 93 Respiratory Rate 16 Blood Pressure 122/77 Pulse Oximetry 98 Oxygen Delivery Room Air Exam 2 Const: General: cooperative, well developed and alert O rientation/consciousness: patient oriented x3 HENMT: Head: atraumatic Mouth: Yes oropharynx normal Eyes: Alignment and Position: position normal Pupils: Equal, round and reactive pupils present EOM: EOMs intact bilaterally Neck: Neck: supple Resp: Effort & Inspection: normal respiratory effort Neuro: General: patient oriented x3 Cranial nerves: Yes CN's II-XII intact bilaterally, Yes facial sensation intact/muscles of mastication intact, Yes Equal, round and reactive pupils present, Yes facial symmetry and Yes Midline tongue present Cognition (Neuro): normal cognition Speech: normal speech Motor exam (neuro): 5/5 motor strength present throughout Sensory Exam: n ormal sensation Coordination: [id number] test normal and Normal rapid alternating movements of the distal upper extremity present (Neuro) Results Labs 03/19/25 05:52 03/19/25 05:52 Labs: Short CBC 03/19/25 Range/Units 05:52 WBC 5.8 (4.5-10.0) K/mm3 Hgb 14.1 (12.0-15.0) g/dL Hct 42.1 (37.0-47.0) % Plt Count 153 (150-375) k/mm3 BMP 03/19/25 05:52 Sodium 139 Potassium 3.7 Chloride 105 Carbon Dioxide 27 BUN 15 Creatinine 0.82 Glucose 110 Calcium 8.9 Liver Function 03/19/25 Range/Units 05:52 Total Bilirubin 0.6 (0.2-1.3) mg/dL AST 34 (14-36) U/L ALT 19 (6-35) U/L Alkaline Phosphatase 60 (38-126) U/L Albumin 4.1 (3.5-5.1) g/dL
[2025-03-19] MEDS: ROSUVASTATIN 5 MG TABLET PO (13:48)
[2025-03-19 13:52] VITALS: BP 117/74; PULSE 102; RESP 16; TEMP 36.4; O2SAT 96
--- NOTE | 2025-03-19 14:18 | P.PNIM_ITS ---
Progress Note: A&P Assessment and Plan (1) TIA (transient ischemic attack): Code(s): G45.9 - Transient cerebral ischemic attack, unspecified Status: Acute Plan Left sided numbness CT head, CTA head and neck and CXR unremarkable MRI brain normal exam ECHO pending PT/OT/ST On Aspirin and Lipitor Rheumatoid arthritis continue home meds DVT prophylaxis on Sq lovenox Full code Awaiting ECHO for discharge Subjective Date/time seen: 03/19/25 14:18 Interval history: Comfortable at bedside Exam Narrative: General: alert and comfortable Eyes: EOMI, PERRLA ENNT External ears normal, Neck is supple, no masses, Respiratory systems: Clear to auscultation Cardiovascular S1, S2, normal rhythm, no murmur, rub, or gallop; no thrill or palpable murmurs on palpation. Gastrointestinal: soft, non-tender, and non-distended abdomen with no masses; BS present Skin: no rash, lesions, ulcerations, subcutaneous nodules or induration Musculoskeletal: no abnormality and no tenderness, normal ROM Neurologic: Alert and oriented x3, appears to have 4/5 power LUE, otherwise normal Mental Status Exam: normal affect Objective Data Vital Signs Vital Signs: Vital Signs - 24 hr 03/18/25 16:00 03/18/25 20:00 03/18/25 20:52 Temperature 96.7 F L Pulse Rate 72 68 96 Respiratory Rate 16 Blood Pressure 115/88 Pulse Oximetry 98 Oxygen Delivery 03/19/25 00:00 03/19/25 04:00 03/19/25 05:52 Temperature 96.5 F L Pulse Rate 78 80 93 Respiratory Rate 16 Blood Pressure 122/77 Pulse Oximetry 98 Oxygen Delivery 03/19/25 08:00 03/19/25 13:52 Temperature 97.6 F Pulse Rate 102 H Respiratory Rate 16 Blood Pressure 117/74 Pulse Oximetry 96 Oxygen Delivery Room Air Intake/Output Intake/Output: Intake & Output 03/16/25 03/17/25 03/18/25 03/19/25 23:59 23:59 23:59 23:59 Intake Total 100 720 400 Balance 100 720 400 Meds/Results Medications: Active Medications Generic Name Dose Route Start Last Admin Trade Name Freq PRN Reason Stop Dose Admin Acetaminophen 650 mg 03/17/25 02:45 03/18/25 20:41 Acetaminophen 325 Mg Tablet PO 650 mg Q4H PRN Administration Mild Pain (1-3) or Fever Aspirin 81 mg 03/17/25 08:00 03/19/25 08:43 Aspirin 81 Mg Chewable Tablet PO 81 mg DAILY@0800 JL Administration Dextrose 12.5 gm 03/17/25 02:45 Dextrose 50% 25 Gm/50 Ml Syringe IV PUSH PRN PRN Hypoglycemia Protocol Enoxaparin Sodium 40 mg 03/18/25 09:00 03/19/25 08:43 Enoxaparin 40 Mg/0.4 Ml Syringe SUB-Q 40 mg DAILY JL Administration Glucagon 1 mg 03/17/25 02:45 Glucagon For Inj 1 Mg Vial IM PRN PRN Hypoglycemia Protocol Glucose 15 gm 03/17/25 02:45 Glucose Oral Gel 15 Gm Of Glucse In 37.5 Gm Tube PO PRN PRN Hypoglycemia Protocol Dextrose 1,000 mls @ 100 mls/hr 03/17/25 02:45 Dextrose 5% 1,000 Ml IVPB PRN PRN Hypoglycemia Protocol Ondansetron HCl 4 mg 03/19/25 08:42 03/19/25 08:48 Ondansetron Inj 4 Mg/2 Ml Vial IV PUSH 4 mg Q6H PRN Administration Nausea And Vomiting Perflutren Lipid Microsphere 0 ml 03/17/25 11:20 Perflutren Lipid Microspheres 1.5 Ml Vial Diluted To 10 Ml Total Volume IV PUSH 03/20/25 11:20 ONCE PRN adequate visualization Protocol Rosuvastatin Calcium 5 mg 03/19/25 12:20 03/19/25 13:48 Rosuvastatin 5 Mg Tablet PO 5 mg DAILY JL Administration Radiology Results: ITS Impressions Chest X-Ray 03/17/25 00:13 IMPRESSION: No acute cardiopulmonary pathology. Head CT 03/17/25 00:15 IMPRESSION: No acute intracranial findings. Head/Neck CTA 03/17/25 00:21 IMPRESSION: 1. Normal CTA head. 2. 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 Otherwise, normal CTA of the neck. Percent stenosis per NASCET criteria is 0%. Brain MRI 03/17/25 13:01 IMPRESSION: 1. Normal aging brain. No acute intracranial process or abnormally enhancing brain lesions. Labs Labs: Laboratory Results - last 24 hr 03/19/25 05:52 WBC 5.8 RBC 4.44 Hgb 14.1 Hct 42.1 MCV 94.8 MCH 31.8 MCHC 33.5 RDW 13.1 Plt Count 153 MPV 9.7 Immature Gran % (Auto) 0.3 Neut % (Auto) 69.1 Lymph % (Auto) 22.3 [place] % (Auto) 6.2 Eos % (Auto) 1.6 Baso % (Auto) 0.5 Lymph # (Auto) 1.29 [place] # (Auto) 0.4 Eos # (Auto) 0.1 Baso # (Auto) 0.0 Abs Immat Gran (auto) 0.02 Absolute Neuts (auto) 4.0 Absolute Nucleated RBC 0.000 Nucleated RBC % 0.0 Sodium 139 Potassium 3.7 Chloride 105 Carbon Dioxide 27 Anion Gap 7 BUN 15 Creatinine 0.82 Estim Creat Clear Calc 45 Estimated GFR > 60 Glucose 110 Calcium 8.9 Magnesium 2.0 Total Bilirubin 0.6 AST 34 ALT 19 Alkaline Phosphatase 60 Total Protein 7.0 Albumin 4.1
--- NOTE | 2025-03-19 16:19 | P.DS_ITS ---
DS: Admitting Diagnosis Discharge Date 03/19/25 Admitting Diagnosis left sided numbness. DS: Discharge Diagnosis Discharge Diagnosis (1) TIA (transient ischemic attack): Code(s): G45.9 - Transient cerebral ischemic attack, unspecified Status: Acute DS: Summary Hospital Course Hospital Course: 74 yo female with PMH of RA who presented to the ER on account left sided numbness. Patien noted she was in her usual state of health until 10 pm last night when she noticed left sided weakness, otherwise denies chest pain, SOB, abd pain, Vomiting and diarrhea. ER eval notable vital sign unremarkable, Labs unremarkable, CT head, CTA head and neck and CXR unremarkable. patient. Started on Aspirin and Lipitor. MRI brain showed normal exam, ECHO showed right to left shunt. Neurology consulted. and recommended continuing the above Aspirin and Lipitor. Patient was discharged before ECHO results as patient was worried that she has spent more than 3 mores days in the hospital waiting on ECHO exam. I discussed with neurology and he stated he will follow up with ECHO report and make referrals if needed based on the ECHO results I checked ECHO report today and it shows right to left shunt and i have reached out to neurology for follow up. F/u with PCP in 3-5 days F/u with neurology as instructed Time Spent with Patient Time attestation: Total time spent providing and/or coordinating discharge services: DS: Data Data Completed and Pending Labs on day of discharge: Labs from last 24 hours 03/19/25 05:52 WBC 5.8 RBC 4.44 Hgb 14.1 Hct 42.1 MCV 94.8 MCH 31.8 MCHC 33.5 RDW 13.1 Plt Count 153 MPV 9.7 Immature Gran % (Auto) 0.3 Neut % (Auto) 69.1 Lymph % (Auto) 22.3 [place] % (Auto) 6.2 Eos % (Auto) 1.6 Baso % (Auto) 0.5 Lymph # (Auto) 1.29 [place] # (Auto) 0.4 Eos # (Auto) 0.1 Baso # (Auto) 0.0 Abs Immat Gran (auto) 0.02 Absolute Neuts (auto) 4.0 Absolute Nucleated RBC 0.000 Nucleated RBC % 0.0 Sodium 139 Potassium 3.7 Chloride 105 Carbon Dioxide 27 Anion Gap 7 BUN 15 Creatinine 0.82 Estim Creat Clear Calc 45 Estimated GFR > 60 Glucose 110 Calcium 8.9 Magnesium 2.0 Total Bilirubin 0.6 AST 34 ALT 19 Alkaline Phosphatase 60 Total Protein 7.0 Albumin 4.1 Discharge Plan Discharge Attending physician on discharge: Grayson Moncada Consulting providers: Bertram Knapp; Matt Miller; Chester Uribe; Godfrey Palumbo; Bill Quintana; Kash Velázquez Discharging Clinician: Grayson Moncada Anticipated Discharge Date/Time: 03/19/25 16:12 Patient Disposition: Home Activity: as tolerated Diet: as tolerated and heart healthy Discharge Instructions: Neurology will follow up with report of Echo Patient Instructions: Antibiotic Form Patient Language: Bhutanese Stand Alone Forms: General Discharge Information Follow-up/Referrals: Bertram Knapp MD [Physician] - (Follow-up with Neurology as instructed.) Carla Valera PA-C [Emergency Provider] - (Follow-up with PCP in 3-5 days) Discharge Medications: New rosuvastatin [Crestor] 5 mg Tablet 5 mg PO DAILY 30 Days Qty: 30 1RF Continued Orencia 87.5 mg/0.7 mL Syringe 87.5 mg SUBCUT MONTHLY calcium carbonate-vitamin D3 500 mg(1,250mg) -125 unit tablet 1 tablet PO DAILY folic acid 0.8 mg capsule 0.8 mg PO DAILY aspirin 81 mg tablet,chewable 81 mg PO DAILY Qty: 30 4RF riboflavin (vitamin B2) 400 mg tablet 400 mg PO DAILY Qty: 30 4RF multivitamin Tablet 1 tablet PO DAILY Prolia 60 mg/mL syringe 60 mg subcut [id number] metoprolol tartrate 25 mg tablet 25 mg PO BID gabapentin 300 mg capsule 300 mg PO TID Qty: 90 11RF Patient Comments: says prescription changed to once a day Date of admission: 03/18/25 14:11 Primary Care Provider: Nelson,Kash Vale Admitting Provider: Teresa Lawrence Attending physician on admission: Grayson Moncada Condition: Stable
== END 2025-03-19 16:30 | disposition home or self-care (01) | DRG 69 ==
LOC: ANHED 03-17 02:11 → ANH3MEDSUR 03-17 03:06
PROVIDERS: Student in an Organized Health Care Education/Training Program; Admitting Provider Internal Medicine; Emergency Provider Physician Assistant; PCP Internal Medicine; Visit Provider Internal Medicine
DX: G45.9 Transient cerebral ischemic attack, unspecified (principal); M06.9 Rheumatoid arthritis, unspecified; Z87.891 Personal history of nicotine dependence; Z90.710 Acquired absence of both cervix and uterus; Z90.722 Acquired absence of ovaries, bilateral
CPT/HCPCS: 36415; 70450; 70496; 70498; 70553; 71045; 80053; 80061; 82948; 83036; 83735; 84484; 85025; 85610; 85730; 92523; 93005; 93306; 96125; 96372; 96374; 96375; 97161; 97165; 97530; 97535; 99285; A9270; A9579; G0378; J1650; J2060; J2405; Q9967

== ENCOUNTER 2025-05-14 08:06 | Outpatient (CLI) | payer MEDICARE, BC, SELFPAY ==
--- NOTE | ~2025-05-14 | DEXA_ITS ---
Bone Density Report Name: ALEJANDRA GALVIN Age: 75 Sex: Female Ethnicity: White Date of : 1950 Indication: monitoring treatment; history of glucocorticoids; prior fracture; cancer; hysterectomy; rheumatoid arthritis; Referring Provider: Nathalie, Clayton Sullivan Study: Bone densitometry was performed. Exam Date: May 14, 2025 Accession number: [id number] Bone Density: Region BMD T-score Z-score Classification AP Spine(L1-L4) 1.563 4.7 7.1 Normal Femoral Neck (Left) 0.635 -1.9 0.2 Osteopenia Total Hip (Left) 0.846 -0.8 1.0 Normal Femoral Neck (Right) 0.654 -1.8 0.3 Osteopenia Total Hip (Right) 0.829 -0.9 0.9 Normal Total Hip Mean 0.838 -0.9 1.0 Normal World Health Organization criteria for BMD impression classify patients as: Normal (T-score at or above -1.0), Osteopenia (T-score between -1.0 and -2.5), or Osteoporosis (T-score at or below -2.5). 10-year Fracture Risk: FRAX not reported because: Treated for osteoporosis Previous Exams: -- Region Exam Age BMD T-score BMD Change BMD Change Date g/cm2 vs Baseline vs Previous -- AP Spine (L1-L4) 05/14/2025 75 1.563 4.7 16.8%# 0.0% 11/06/2022 72 1.563 4.7 16.8%# 6.1%* 08/20/2020 70 1.473 3.9 10.0%# 6.3%* 07/06/2017 67 1.387 3.1 3.6%# 6.9%* 10/23/2013 63 1.297 2.3 -3.1%# -2.4%* 08/31/2011 61 1.329 2.6 -0.7%# 1.3% 07/15/2009 59 1.312 2.4 -2.0%# 2.2%* 02/14/2007 56 1.284 2.2 -4.1%# -4.1%# 01/18/2004 53 1.339 2.7 Total Hip(Left) 05/14/2025 75 0.846 -0.8 -9.4%# 2.4% 11/06/2022 72 0.826 -1.0 -11.5%# 1.6% 08/20/2020 70 0.812 -1.1 -12.9%# -1.5% 07/06/2017 67 0.824 -1.0 -11.6%# -1.0% 10/23/2013 63 0.833 -0.9 -10.7%# -4.9%* 08/31/2011 61 0.876 -0.5 -6.1%# -0.7% 07/15/2009 59 0.882 -0.5 -5.4%# -1.0% 02/14/2007 56 0.891 -0.4 -4.5%# -4.5%# 01/18/2004 53 0.933 -0.1 Total Hip(Right) 05/14/2025 75 0.829 -0.9 -10.8%# 1.3% 11/06/2022 72 0.819 -1.0 -12.0%# 0.9% 08/20/2020 70 0.811 -1.1 -12.8%# 0.3% 07/06/2017 67 0.808 -1.1 -13.1%# -1.0% 10/23/2013 63 0.817 -1.0 -12.2%# -4.3%* 08/31/2011 61 0.854 -0.7 -8.2%# -3.5%* 07/15/2009 59 0.885 -0.5 -4.9%# 1.6% 02/14/2007 56 0.871 -0.6 -6.3%# -6.3%# 01/18/2004 53 0.930 -0.1 -- *Denotes significance at 95% confidence level, LSC for AP Spine = 0.022 g/cm2, LSC for Total Hip = 0.027 g/cm2 # Denotes dissimilar scan types or analysis methods Clinical Information Provided by Patient: Has had a low trauma fracture Has taken Glucocorticoids Has rheumatoid arthritis Is being treated for osteoporosis Has used the following medications: Prolia (i.e. denosumab), Vitamin D, Calcium Has the following medical conditions: Cancer, Hysterectomy Patient maximum height was 64 Menopause Age: 30 Drinks caffeinated beverages Onset of menses at age 13 Number of children 1 Impression: The patient has low bone mass, based on the Left Femoral Neck T-score. The patient has risk factors, including: previous fracture, history of glucocorticoid therapy. No significant bone loss was observed. Discussion: PATIENT UNDER TREATMENT WITH NO SIGNIFICANT BMD LOSS SINCE LAST EXAM. In an untreated patient, BMD typically declines with age. A lack of decline or gain is usually a sign that treatment is efficacious and fracture risk is reduced. It is important to ask patients whether they are taking their medications and to encourage continued and appropriate compliance with their osteoporosis therapies to reduce fracture risk. It is also important to review their risk factors and encourage appropriate calcium and vitamin D intakes, exercise, fall prevention and other lifestyle measures. Follow-Up: Consider a repeat BMD and Vertebral Fracture Assessment (VFA) exam in 2 years or sooner if medically necessary, to reassess this patient's status. Reported by: JESSICA on 05/14/2025 8:40:00 AM. Reviewed, dictated and finalized at location A.
== END 2025-05-14 08:07 | disposition home or self-care (01) ==
LOC: MICIMG 08:08
PROVIDERS: PCP Internal Medicine; Visit Provider Physician Assistant
DX: M85.852 Other specified disorders of bone density and structure, left thigh (principal); M85.851 Other specified disorders of bone density and structure, right thigh; Z78.0 Asymptomatic menopausal state
CPT/HCPCS: 77080